=== PATIENT | male | born 1965 | race Caucasian/White ===

== ENCOUNTER 2020-05-18 21:29 | Emergency (ER) | payer OTHER, MEDICAID, SELFPAY ==
[2020-05-18 21:29] VITALS: BP 130/82; PULSE 119; RESP 16; TEMP 36.3; BMI 25.7
--- NOTE | 2020-05-18 21:42 | DI.RAD.S_ITS ---
PROCEDURE: XR CHEST 2V INDICATIONS: shortness of breath TECHNIQUE: 2 views of the chest were acquired. COMPARISON: [facility], , CHEST 1 VIEW, 09/15/2015, 11:42. FINDINGS: Surgical changes and devices: None. Lungs and pleura: Small left-sided pleural effusion. There is cephalization of the pulmonary vasculature and interstitial prominence. Streaky opacities noted in the lung bases bilaterally left greater than right which could represent atelectasis, aspiration or pneumonia. Mediastinum: Mediastinal contours are normal. Heart is mildly enlarged Bones and chest wall: No suspicious bony abnormalities. Soft tissues appear unremarkable. IMPRESSION: 1. Cardiomegaly with CHF and small left-sided pleural effusion. 2. Streaking bibasilar opacities which could represent atelectasis, aspiration or pneumonia. Dictated by: Kita Dia MD, PhD on 05/19/2020 at 8:35 Approved by: Kita Dia MD, PhD on 05/19/2020 at 8:37
[2020-05-18 21:45] VITALS: PULSE 117; RESP 18
[2020-05-18 21:53] LABS: Hematocrit 49.2 % (41-53); Hemoglobin 15.7 g/dL (13.5-17.5); Mean Corpuscular HGB Conc 31.8 % (30-36); Mean Corpuscular Volume 78.4 fL (80-100); Red Blood Cell Count 6.28 X10^6/uL (4.5-5.9); White Blood Cell Count 10.9 X10^3/uL (4.5-11.0)
[2020-05-18 21:59] LABS: Alanine Aminotransferase 20 IU/L (<50); Albumin 4.2 g/dL (3.5-5.0); Albumin Globulin Ratio 1.3 (1.0-2.8); Alkaline Phosphatase 116 U/L (38-126); Aspartate Aminotransferase 28 IU/L (17-59); BUN Creatinine Ratio 19.5 (6-22); Bilirubin Total 1.2 mg/dL (0.2-1.3); Blood Urea Nitrogen 17 mg/dL (9-20); Calcium 9.6 mg/dL (8.4-10.2); Carbon Dioxide 29 mmol/L (22-32); Chloride 98 mmol/L (98-107); Estimated Glomerular Filt Rate > 60.0 mL/min (>60); Globulin 3.2 g/dL (1.7-4.1); Glucose 172 mg/dL (70-100); HEMOLYSIS 25 (0-50); Potassium 4.6 mmol/L (3.4-5.1); Sodium 135 mmol/L (137-145); Total Protein 7.4 g/dL (6.3-8.2)
[2020-05-18 22:00] LABS: Lactate (Lactic Acid) 1.6 mmol/L (0.7-2.1)
[2020-05-18 22:04] VITALS: PULSE 58; O2SAT 100
[2020-05-18 22:05] LABS: Add Manual Diff / Slide Review YES
[2020-05-18 22:08] LABS: Creatine Kinase 59 U/L (55-170)
[2020-05-18 22:16] LABS: Neutrophils Absolute Manual 6976 /uL (3000-5900); RBC Morphology Normal Morphology; Total Cells Counted 100
[2020-05-18 22:22] LABS: NT-proBNP (BNP-Adult 18+) 7540 pg/mL (<125); Troponin I 0.032 ng/mL (0.01-0.034)
--- NOTE | 2020-05-18 22:30 | ED_ITS ---
HPI - General Adult General Chief complaint: Shortness of Breath/Dyspnea Stated complaint: states CHF symptoms Time Seen by Provider: 05/18/20 21:54 Source: patient Mode of arrival: Wheelchair Limitations: no limitations History of Present Illness HPI narrative: 54-year-old male. He states that he has been told that he has had heart failure in the past and has been on Lasix in the past but after further evaluation by his providers he has been taken off of any diuretics. States he has never had a heart attack in the past. Not on anticoagulation here for evaluation of worsening swelling in his lower extremities and shortness of breath/dyspnea on exertion over the past month. He states that he is here in [facility] emergency department today because his family told him that he should come to be evaluated. He does state that over the past several weeks it has become harder and harder for him to get up and walk around even at the grocery store. Does describe a productive cough. No fevers. No chest pain. Related Data Previous Rx's Medication Instructions Recorded furosemide [Lasix] 40 mg PO DAILY #60 tab 05/19/20 Allergies Allergy/AdvReac Type Severity Reaction Status Date / Time Penicillins [PENICILLINS] Allergy Intermediate Unverified 02/01/18 12:34 Review of Systems Constitutional Constitutional: Denies fever(s) and Denies headache(s) ENT Ears, Nose, Mouth, and Throat: Denies headache(s) Cardiovascular Cardiovascular: Denies chest pain, Reports dyspnea and Reports dyspnea on exertion Respiratory Respiratory: Denies chest congestion, Reports dyspnea and Reports dyspnea on exertion Gastrointestinal Gastrointestinal: Denies abdominal pain, Denies nausea and Denies vomiting Musculoskeletal Musculoskeletal: Denies arthralgias and Denies myalgias Integumentary/Breasts Skin/Breast: Denies rash Neurologic Neurologic: Denies behavioral changes and Denies headache(s) Psychiatric Psychiatric: Denies behavioral changes Hematologic/Lymphatic Hematologic/Lymphatic: Denies easy bleeding and Denies easy bruising Allergic/Immunologic Allergic/Immunologic: Denies urticaria Patient History Medical History CHF (congestive heart failure) (Inactive) Social History Smoking Status: Current every day smoker Smoking Status: Current every day smoker tobacco type: cigarettes Substance Use Type: marijuana Exam Initial Vital Signs Initial Vital Signs: Vital Signs Temperature 97.3 F L 05/18/20 21:29 Pulse Rate 119 H 05/18/20 21:29 Respiratory Rate 16 05/18/20 21:29 Blood Pressure 130/82 05/18/20 21:29 Const General: cooperative and comfortable Limitations: mental status not altered HENMT Head: normal to inspection and normocephalic Resp Effort & Inspection: normal respiratory effort Auscultation: clear to auscultation bilaterally Cardio Rate: tachycardic Rhythm: regular rhythm GI Palpation: soft Skin Lesions: no lesions Rashes: no rashes Neuro General: patient alert, patient awake and patient oriented x3 Cognition: normal cognition Speech: speech normal Extrem General: capillary refill normal and edema Psych Appearance: grossly normal and well kempt Scores GCS Lucy coma scale eye opening: Spontaneous Seymour coma scale verbal response: Orientated Seymour coma scale motor response: Obey commands Seymour coma scale total score: 15 Course Orders Ordered: ED Orders 05/19/20 00:40 Troponin I Stat Discontinued Medications Furosemide (Lasix) 60 mg IV NOW ONE Stop: 05/18/20 22:31 Last Admin: 05/18/20 22:41 Dose: 60 mg Documented by: DG Vital Signs Vital signs: Vital Signs - 8 hr 05/18/20 23:30 05/19/20 00:33 05/19/20 01:58 Temperature 98.0 F Pulse Rate 90 109 H 81 Respiratory Rate 24 24 24 Blood Pressure 120/70 130/80 138/72 Pulse Oximetry 99 100 99 Medical Decision Making Lab Data Lab results reviewed: Yes I reviewed the patient's lab results. Result diagrams: 05/18/20 21:45 05/18/20 21:45 Labs: Lab Results 05/18/20 05/18/20 05/18/20 Range/Units 21:45 21:45 21:45 WBC 10.9 (4.5-11.0) X10^3/uL RBC 6.28 H (4.5-5.9) X10^6/uL Hgb 15.7 (13.5-17.5) g/dL Hct 49.2 (41-53) % MCV 78.4 L (80-100) fL MCH 25.0 L (26-34) PG MCHC 31.8 (30-36) % RDW 15.0 H (11.6-14.8) % Plt Count (150-400) X10^3/uL Neut % (Auto) Not Reportable Lymph % (Auto) Not Reportable Tyler % (Auto) Not Reportable Eos % (Auto) Not Reportable Baso % (Auto) Not Reportable Lymph # (Auto) Not Reportable Tyler # (Auto) Not Reportable Baso # (Auto) Not Reportable Total Counted 100 Seg Neutrophils % 64.0 (38-70) % Lymphocytes % (Manual) 21.0 L (25-45) % Monocytes % (Manual) 13.0 H (2-11) % Eosinophils % (Manual) 1.0 L (2-4) % Basophils % (Manual) 1.0 (0-1) % Neutrophils # (Manual) 6976 H (0032-7012) /uL RBC Morphology Normal morphology Sodium 135 L (137-145) mmol/L Potassium 4.6 (3.4-5.1) mmol/L Chloride 98 (98-107) mmol/L Carbon Dioxide 29 (22-32) mmol/L BUN 17 (9-20) mg/dL Creatinine 0.87 (0.66-1.25) mg/dL Estimated GFR > 60.0 (>60) mL/min BUN/Creatinine Ratio 19.5 (6-22) Glucose 172 H (70-100) mg/dL Lactate 1.6 (0.7-2.1) mmol/L Calcium 9.6 (8.4-10.2) mg/dL Total Bilirubin 1.2 (0.2-1.3) mg/dL AST 28 (17-59) IU/L ALT 20 (<50) IU/L Alkaline Phosphatase 116 (38-126) U/L Total Creatine Kinase (55-170) U/L CK-MB (CK-2) CK-MB (CK-2) Rel Index Troponin I (0.01-0.034) ng/mL NT-Pro-B Natriuret Pep (<125) pg/mL Total Protein 7.4 (6.3-8.2) g/dL Albumin 4.2 (3.5-5.0) g/dL Globulin 3.2 (1.7-4.1) g/dL Albumin/Globulin Ratio 1.3 (1.0-2.8) 05/18/20 05/19/20 Range/Units 21:45 00:40 WBC (4.5-11.0) X10^3/uL RBC (4.5-5.9) X10^6/uL Hgb (13.5-17.5) g/dL Hct (41-53) % MCV (80-100) fL MCH (26-34) PG MCHC (30-36) % RDW (11.6-14.8) % Plt Count (150-400) X10^3/uL Neut % (Auto) Lymph % (Auto) Tyler % (Auto) Eos % (Auto) Baso % (Auto) Lymph # (Auto) Tyler # (Auto) Baso # (Auto) Total Counted Seg Neutrophils % (38-70) % Lymphocytes % (Manual) (25-45) % Monocytes % (Manual) (2-11) % Eosinophils % (Manual) (2-4) % Basophils % (Manual) (0-1) % Neutrophils # (Manual) (8994-3729) /uL RBC Morphology Sodium (137-145) mmol/L Potassium (3.4-5.1) mmol/L Chloride (98-107) mmol/L Carbon Dioxide (22-32) mmol/L BUN (9-20) mg/dL Creatinine (0.66-1.25) mg/dL Estimated GFR (>60) mL/min BUN/Creatinine Ratio (6-22) Glucose (70-100) mg/dL Lactate (0.7-2.1) mmol/L Calcium (8.4-10.2) mg/dL Total Bilirubin (0.2-1.3) mg/dL AST (17-59) IU/L ALT (<50) IU/L Alkaline Phosphatase (38-126) U/L Total Creatine Kinase 59 (55-170) U/L CK-MB (CK-2) TNP CK-MB (CK-2) Rel Index TNP Troponin I 0.032 0.032 (0.01-0.034) ng/mL NT-Pro-B Natriuret Pep 7540 H (<125) pg/mL Total Protein (6.3-8.2) g/dL Albumin (3.5-5.0) g/dL Globulin (1.7-4.1) g/dL Albumin/Globulin Ratio (1.0-2.8) Urine Dip Bedside Urine Glucose Negative Bedside Urine Bilirubin - Negative Bedside Urine Ketone - Negative Urine Specific [place] 1.030 Bedside Urine Occult Blood +/- Bedside Urine pH 6.0 Bedside Urine Protein + 30 Bedside Urine Urobilinogen +/- 1mg Bedside Urine Nitrite - Negative Bedside Urine Leukocytes - Negative Esterase Point of care testing: Urine Dip Bedside Urine Glucose Negative Bedside Urine Bilirubin - Negative Bedside Urine Ketone - Negative Urine Specific [place] 1.030 Bedside Urine Occult Blood +/- Bedside Urine pH 6.0 Bedside Urine Protein + 30 Bedside Urine Urobilinogen +/- 1mg Bedside Urine Nitrite - Negative Bedside Urine Leukocytes - Negative Esterase Imaging Data Chest x-ray: Attestation: I personally reviewed and interpreted this imaging study as follows: My Impression: Pulmonary edema ECG Data Attestation: I personally reviewed and interpreted this ECG as follows: Prior ECG tracings: not available for review Interpretation: Sinus rhythm Ventricular rate of 115 Normal axis Normal QRS Normal QTC No ST T wave changes MDM Narrative Medical decision making narrative: Patient does have a history and physical exam consistent with fluid overload most likely related to heart failure. Has an elevated BNP. Has fairly significant swelling in bilateral lower extremities. This does not appear to be new. Has been worsening over the past month. Was given Lasix here in the ER with successful multiple urinations. He does state that he is starting to feel better even during the short time here in the ER. EKG shows no acute changes. His troponin is negative x2. Low suspicion for ACS. I feel that a course of oral Lasix at home prior to admission is not unreasonable in this situation. Patient was given return precautions and follow-up instructions. She expressed understanding and agreement. Discharge Plan Departure Patient Disposition: Home Clinical Impression: Peripheral edema, Heart failure Discharge Date/Time: 05/19/20 01:50 Instructions: DI for Peripheral Edema -- Bilateral Activity Restrictions/Additional Instructions: A prescription for Lasix/furosemide was electronically transmitted to [facility] in [place]. Please start taking this as directed. Had a recommend you contact your primary doctor to discuss follow-up and to discuss the indications for referral to see Cardiology and a echocardiogram. Return to the emergency department for any new or worsening symptoms Prescriptions: New furosemide [Lasix] 40 mg tablet 40 mg PO DAILY Qty: 60 RF: 0 Referrals: Agnieszka Billy [Primary Care Provider] -
[2020-05-18] MEDS: FUROSEMIDE 100 MG/10 ML VIAL 60 MG IV (22:41)
[2020-05-18 23:30] VITALS: BP 120/70; PULSE 90; RESP 24; O2SAT 99
[2020-05-19 00:33] VITALS: BP 130/80; PULSE 109; RESP 24; TEMP 36.7; O2SAT 100
[2020-05-19 01:12] LABS: Troponin I 0.032 ng/mL (0.01-0.034)
[2020-05-19 01:58] VITALS: BP 138/72; PULSE 81; RESP 24; O2SAT 99
== END 2020-05-19 01:50 | disposition home or self-care (01) ==
PROVIDERS: Emergency Provider Emergency Medicine; Family Provider Family Medicine; PCP Family Medicine
DX: R60.9 Edema, unspecified (principal); I50.9 Heart failure, unspecified; R06.02 Shortness of breath
CPT/HCPCS: 36415; 71046; 80053; 81003; 82550; 83605; 83880; 84484; 85025; 93005; 96374; 99284; J1940

== ENCOUNTER 2025-02-26 17:25 | Inpatient (IN) | payer MEDICAID, OTHER, SELFPAY ==
[2025-02-26 17:54] VITALS: BP 169/76; PULSE 112; RESP 16; TEMP 36.8; O2SAT 97; BMI 25.7
--- NOTE | 2025-02-26 19:32 | EKG_ITS ---
[place] [id number] [address] [place] [address] Test Date: 2025-02-27 Pat Name: Cy Buchanan Department: 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
--- NOTE | 2025-02-26 19:32 | DI.RAD.S_ITS ---
PROCEDURE: XR CHEST 1V INDICATIONS: suspected sepsis TECHNIQUE: One view of the chest was acquired. COMPARISON: [facility], CR, XR CHEST 2V, 05/18/2020, 21:34. FINDINGS: Surgical changes and devices: None. Lungs and pleura: Lungs are clear. No pleural effusions or pneumothorax. Mediastinum: Mediastinal contours appear normal. Heart size is normal. Bones and chest wall: No suspicious bony lesions. Overlying soft tissues appear unremarkable. IMPRESSION: No acute cardiopulmonary abnormality is seen. Dictated by: Monico Cerna M.D. on 02/26/2025 at 19:52 Approved by: Monico Cerna M.D. on 02/26/2025 at 19:52
[2025-02-26 20:34] LABS: INR 1.3 (0.9-1.3); Prothrombin Time 14.8 SECONDS (9.4-12.5)
[2025-02-26 20:37] LABS: PTT Partial Thromboplastin Tim 23 SECONDS (25.1-36.5)
[2025-02-26 20:39] LABS: Lactate (Lactic Acid) 1.1 mmol/L (0.7-2.1)
[2025-02-26 20:40] LABS: Alanine Aminotransferase 14 IU/L (<50); Albumin 3.6 g/dL (3.5-5.0); Albumin Globulin Ratio 0.7 (1.0-2.8); Alkaline Phosphatase 101 U/L (38-126); Aspartate Aminotransferase 20 IU/L (17-59); BUN Creatinine Ratio 11.5 (6-22); Bilirubin Total 0.5 mg/dL (0.2-1.3); Blood Urea Nitrogen 9 mg/dL (9-20); Calcium 9.1 mg/dL (8.4-10.2); Carbon Dioxide 33 mmol/L (22-32); Chloride 96 mmol/L (98-107); Estimated Glomerular Filt Rate > 60 mL/min (>60); Globulin 5.3 g/dL (1.7-4.1); Glucose 203 mg/dL (70-99); HEMOLYSIS < 15 (0-50); Lipase 25 U/L (23-300); Potassium 4.6 mmol/L (3.4-5.1); Sodium 132 mmol/L (137-145); Total Protein 8.9 g/dL (6.3-8.2)
[2025-02-26] MEDS: SODIUM CHLORIDE 0.9% 1,000 ML 1000 ML IV (20:42)
[2025-02-26 20:52] LABS: Add Manual Diff / Slide Review NO; Basophils Absolute Auto 100 /uL (0-100); Basophils Percent Auto 0.9 % (0-2); Eosinophils Absolute Auto 100 /uL (0-450); Eosinophils Percent Auto 0.7 % (2-4); Hematocrit 38.3 % (41-53); Hemoglobin 12.8 g/dL (13.5-17.5); Lymphocytes Absolute Auto 1500 /uL (1100-4500); Lymphocytes Percent Auto 10.6 % (25-40); Mean Corpuscular HGB Conc 33.5 % (30-36); Mean Corpuscular Hemoglobin 26.1 PG (26-34); Mean Corpuscular Volume 77.9 fL (80-100); Monocytes Absolute Auto 1100 /uL (0-900); Monocytes Percent Auto 7.5 % (3-14); Neutrophils Absolute Auto 11600 /uL (1500-7000); Neutrophils Percent Auto 80.3 % (50-75); Platelet Count 401 X10^3/uL (150-400); Red Blood Cell Count 4.92 X10^6/uL (4.5-5.9); Red Cell Distribution Width 14.6 % (11.6-14.8); White Blood Cell Count 14.4 X10^3/uL (4.5-11.0)
[2025-02-26 20:56] LABS: Procalcitonin 0.069 ng/mL (<0.5)
--- NOTE | 2025-02-26 21:44 | ED_ITS ---
HPI - Extremity Problem General Chief complaint: Extremity Problem,Nontraumatic Stated complaint: R leg infection Time Seen by Provider: 02/26/25 21:44 Source: patient Mode of arrival: Wheelchair History of Present Illness HPI Narrative: 59-year-old male with a past medical history of diabetes drug abuse on Suboxone presents to the emergency department from home for evaluation of right lower extremity ulcers redness swelling. He states that several months ago he noticed a small ulcer states that he has been ignoring it since then and states that now it is more red with foul-smelling discharge. Patient states that he had something similar happened before and required amputation of his left leg. He denies any other symptoms at this time Related Data Previous Rx's Medication Instructions Recorded furosemide 40 mg tablet (Lasix) 40 mg PO DAILY #60 tabs 05/19/20 Allergies Allergy/AdvReac Type Severity Reaction Status Date / Time Penicillins [PENICILLINS] Allergy Intermediate Verified 02/26/25 17:59 Review of Systems Review of Systems Narrative: General: Denies fever, chills, weight loss HEENT: Denies headache, eye drainage, eye irritation, head trauma, sore throat, voice change Cardiovascular: Denies any chest pain, palpitations, tachycardia Respiratory: Denies any shortness of breath, cough, wheeze, stridor GI/: Denies any abdominal pain, nausea, vomiting, diarrhea, bright red blood per rectum, melanotic stools, urinary frequency, urinary retention, dysuria, hematuria MSK: Denies any joint pain, muscle pains, swelling Skin: Redness and ulceration to the right lower extremity Neuro: Denies any headache, lightheadedness, dizziness, fainting, weakness Psych: Denies SI/HI Patient History Medical History (Updated 02/26/25 @ 22:52 by Onesimo Mcghee DO) CHF (congestive heart failure) Social History Smoking Status: Current every day smoker Smoking Status: Current every day smoker tobacco type: cigarettes Exam Narrative Exam Narrative: General: Cooperative, well-developed, not in acute distress HEENT: Normocephalic, atraumatic, PERRLA, normal sclera, eyelids normal Neck: Active full range of motion, atraumatic Chest: Normal to inspection, negative crepitus, no overlying erythema ecchymosis Respiratory: Normal respiratory effort, not in acute respiratory distress, clear to auscultation bilaterally negative cough, wheeze, tachypnea, rhonchi, rales Cardiology: Regular rate rhythm negative gallop, murmur, rubs GI/: No tenderness to palpation, soft, non rigid, normal to inspection, exam deferred MSK: Full active range of motion in all 4 extremities, atraumatic, no tenderness to palpation of any bony prominences Skin: Erythema and ulcers noted to the right lower extremity, palpable pulses but warmth to touch no crepitus Neuro: Alert awake oriented x3, moves all 4 extremities spontaneously, cranial nerves intact, able to answer all questions appropriately follows commands appropriately Psych: Cooperative, negative suicidal or homicidal ideations Initial Vital Signs Initial Vital Signs: Vital Signs Temperature 98.3 F 02/26/25 17:54 Pulse Rate 112 H 02/26/25 17:54 Respiratory Rate 16 02/26/25 17:54 Blood Pressure 169/76 H 02/26/25 17:54 Pulse Oximetry 97 02/26/25 17:54 Oxygen Delivery Method Room Air 02/26/25 17:54 Course Orders Ordered: ED Orders 02/26/25 19:32 XR chest 1V Stat EKG-12 Lead Stat RT Consult Eval and Treat NOW 02/26/25 20:14 Complete Blood Count AUTO DIFF Stat Comprehensive Metabolic Panel Stat Lactate (Lactic Acid) Stat Lipase Stat PTT Partial Thromboplastin Rustam Stat Procalcitonin Stat Prothrombin Time INR Stat 02/26/25 20:37 Blood Culture Stat 02/26/25 22:17 XR foot RT min 3V Stat 02/26/25 22:56 CRP [C-Reactive Protein Quant] Stat ESR [Erythrocyte Sedimentation Rate] Stat 02/26/25 22:57 A1C [Hemoglobin A1C% w Est Avg Glu] Stat 02/26/25 22:58 MR foot RT wo/w con Stat US arterial duplex LE RT Stat Vancomycin HCl/Dextrose (Vancomycin) 2,000 mg in 400 mls @ 200 mls/hr IV NOW ONE Stop: 02/27/25 00:17 Last Admin: 02/26/25 23:18 Dose: 200 mls/hr Ondansetron HCl (Ondansetron 4 Mg/2 Ml Inj) 4 mg IV NOW PRN PRN Reason: Nausea And Vomiting Ondansetron HCl (Ondansetron 4 Mg Odt) 4 mg PO NOW PRN PRN Reason: Nausea And Vomiting Discontinued Medications Sodium Chloride (Normal Saline 0.9%) 1,000 mls @ 1,000 mls/hr IV BOLUS ONE Stop: 02/26/25 20:30 Last Infusion: 02/26/25 21:59 Dose: Infused Documented By: Admin: 02/26/25 20:42 Dose: 1,000 mls/hr Documented By: Cefepime HCl 2 gm/ Sodium (Chloride) 100 mls @ 200 mls/hr IV NOW ONE Stop: 02/26/25 22:19 Last Admin: 02/26/25 22:29 Dose: 200 mls/hr Documented By: JENNIFER Vital Signs Vital signs: Vital Signs - 8 hr 02/26/25 17:54 02/26/25 22:11 Temperature 98.3 F Pulse Rate 112 H 97 H Respiratory Rate 16 17 Blood Pressure 169/76 H 173/85 H Pulse Oximetry 97 98 Oxygen Delivery Method Room Air MDM - Extremity (Nontraumatic) Lab Data 02/26/25 20:14 02/26/25 20:14 Labs: Lab Results 02/26/25 Range/Units 20:14 WBC 14.4 H (4.5-11.0) X10^3/uL RBC 4.92 (4.5-5.9) X10^6/uL Hgb 12.8 L (13.5-17.5) g/dL Hct 38.3 L (41-53) % MCV 77.9 L (80-100) fL MCH 26.1 (26-34) PG MCHC 33.5 (30-36) % RDW 14.6 (11.6-14.8) % Plt Count 401 H (150-400) X10^3/uL Neut % (Auto) 80.3 H (50-75) % Lymph % (Auto) 10.6 L (25-40) % Porter % (Auto) 7.5 (3-14) % Eos % (Auto) 0.7 L (2-4) % Baso % (Auto) 0.9 (0-2) % Neut # (Auto) 25526 H (3290-9229) /uL Lymph # (Auto) 1500 (5685-9764) /uL Porter # (Auto) 1100 H (0-900) /uL Eos # (Auto) 100 (0-450) /uL Baso # (Auto) 100 (0-100) /uL ESR 43 H (0-15) MM/HR PT 14.8 H (9.4-12.5) SECONDS INR 1.3 (0.9-1.3) APTT 23 L (25.1-36.5) SECONDS Sodium 132 L (137-145) mmol/L Potassium 4.6 (3.4-5.1) mmol/L Chloride 96 L (98-107) mmol/L Carbon Dioxide 33 H (22-32) mmol/L BUN 9 (9-20) mg/dL Creatinine 0.78 (0.66-1.25) mg/dL Estimated GFR > 60 (>60) mL/min BUN/Creatinine Ratio 11.5 (6-22) Glucose 203 H (70-99) mg/dL Hemoglobin A1c 10.7 H (4.0-6.0) % Lactate 1.1 (0.7-2.1) mmol/L Calcium 9.1 (8.4-10.2) mg/dL Total Bilirubin 0.5 (0.2-1.3) mg/dL AST 20 (17-59) IU/L ALT 14 (<50) IU/L Alkaline Phosphatase 101 (38-126) U/L C-Reactive Protein 3.2 H (<1.0) mg/dL Total Protein 8.9 H (6.3-8.2) g/dL Albumin 3.6 (3.5-5.0) g/dL Globulin 5.3 H (1.7-4.1) g/dL Albumin/Globulin Ratio 0.7 L (1.0-2.8) Lipase 25 (23-300) U/L Procalcitonin 0.069 (<0.5) ng/mL Imaging Data Chest x-ray: Radiologist's Impression: [address] [address] XRay Report Signed Patient: Cy Buchanan MR#: [id number] : 1965 Acct:[id number] Age/Sex: 59 / M Date of Service: 02/26/25 Loc: ED Accession Number: [id number] Procedure: XR chest 1V Ordering Provider: Onesimo Mcghee D.O. PROCEDURE: XR CHEST 1V INDICATIONS: suspected sepsis TECHNIQUE: One view of the chest was acquired. COMPARISON: [facility], CR, XR CHEST 2V, 05/18/2020, 21:34. FINDINGS: Surgical changes and devices: None. Lungs and pleura: Lungs are clear. No pleural effusions or pneumothorax. Mediastinum: Mediastinal contours appear normal. Heart size is normal. Bones and chest wall: No suspicious bony lesions. Overlying soft tissues appear unremarkable. IMPRESSION: No acute cardiopulmonary abnormality is seen. Extremity x-ray #1: Radiologist's Impression: [address] [address] XRay Report Signed Patient: Cy Buchanan MR#: [id number] : 1965 Acct:[id number] Age/Sex: 59 / M Date of Service: 02/26/25 Loc: ED Accession Number: [id number] Procedure: XR foot RT min 3V Ordering Provider: Onesimo Mcghee D.O. PROCEDURE: XR FOOT RT MIN 3V INDICATIONS: ulcers, cellulitis TECHNIQUE: 3 views of the foot were acquired. COMPARISON: None. FINDINGS: Diffuse osseous demineralization. No acute fracture or dislocation. Focal osteopenia and permeative appearance of the 1st metatarsal head with adjacent subcutaneous emphysema and extension to the MTP joint. Mild hallux valgus. Surgical clips versus retained foreign body along the plantar aspect of the 3rd metatarsal neck. Mild Achilles calcaneal and plantar calcaneal enthesopathy. IMPRESSION: Osteomyelitis of the 1st metatarsal head/neck with intra-articular extension at the MTP joint. [facility] Narrative Medical decision making narrative: 59-year-old male with a history of noncompliant diabetes on metformin, Suboxone, presenting from home for evaluation of redness and ulceration to his right lower extremity states it has been ongoing for ?months states that something similar happened to his left leg and required amputation states that he knows he waited ?too long but this states that he wants it evaluated now. He denies any numbness weakness tingling to his right lower extremity denies any recent trauma, on exam multiple ulcers noted in the right lower extremity palpable pulses erythematous but no crepitus. Lab work was consistent with a leukocytosis of 14.4, patient with tachycardia with source of infection meeting sepsis criteria, fluids ordered, antibiotics ordered, did obtain x-ray of the right foot that did show osteomyelitis of the 1st metatarsal head/neck with intra-articular extension at the MTP joint 2255: Discussed case with orthopedic surgeon Dr. Acevedo, is recommending MRI with and without of the foot, ultrasound duplex of right lower extremity, ESR CRP and hemoglobin A1c, states to keep patient NPO at midnight and to admit to Medicine. The patient's management plan was discussed Dr. Damon, who agrees to admit the patient to their service and assumes care of this patient at this time. Full admission orders will be placed by the primary team. Discharge Plan Departure Patient Disposition: Admitted As Inpatient Clinical Impression: Diabetic foot ulcer, Osteomyelitis
[2025-02-26 22:11] VITALS: BP 173/85; PULSE 97; RESP 17; O2SAT 98
--- NOTE | 2025-02-26 22:17 | DI.RAD.S_ITS ---
PROCEDURE: XR FOOT RT MIN 3V INDICATIONS: ulcers, cellulitis TECHNIQUE: 3 views of the foot were acquired. COMPARISON: None. FINDINGS: Diffuse osseous demineralization. No acute fracture or dislocation. Focal osteopenia and permeative appearance of the 1st metatarsal head with adjacent subcutaneous emphysema and extension to the MTP joint. Mild hallux valgus. Surgical clips versus retained foreign body along the plantar aspect of the 3rd metatarsal neck. Mild Achilles calcaneal and plantar calcaneal enthesopathy. IMPRESSION: Osteomyelitis of the 1st metatarsal head/neck with intra-articular extension at the MTP joint. Dictated by: Wiley Mahoney M.D. on 02/26/2025 at 22:42 Approved by: Wiley Mahoney M.D. on 02/26/2025 at 22:43
[2025-02-26] MEDS: CEFEPIME 2 GM in SODIUM CHLORIDE 0.9% 100 ML IV (22:29)
[2025-02-26 22:30] VITALS: PULSE 101; O2SAT 98
--- NOTE | 2025-02-26 22:58 | DI.US.S_ITS ---
PROCEDURE: US ARTERIAL DUPLEX LE RT INDICATIONS: osteo TECHNIQUE: Color and pulse Doppler interrogation was performed of the right lower extremity arterial system, with image documentation. COMPARISON: None. FINDINGS: Common femoral artery: 192 cm/sec, with monophasic flow. Deep femoral artery: 268 cm/sec, with monophasic flow. Proximal superficial femoral artery: 250 cm/sec, with monophasic flow. Mid superficial femoral artery: 366 cm/sec, with monophasic flow. Distal superficial femoral artery: 153 cm/sec, with monophasic flow. Popliteal artery: 139 cm/sec, with monophasic flow. Posterior tibial artery: 36 cm/sec, with monophasic flow. Anterior tibial artery/dorsalis pedis: Not identified Ibrahim-scale imaging description: Moderate-severe plaque throughout the entire right lower extremity arterial vasculature IMPRESSION: Multifocal areas of high-grade 50-99% stenosis throughout the right lower extremity arterial vasculature. Dictated by: Wiley Mahoney M.D. on 02/27/2025 at 0:18 Approved by: Wiley Mahoney M.D. on 02/27/2025 at 0:21
[2025-02-26 23:00] VITALS: PULSE 93; O2SAT 92
[2025-02-26] MEDS: VANCOMYCIN 2,000 MG/400 ML PIGGYBACK 200 MG IV (23:18)
[2025-02-26 23:30] VITALS: PULSE 90
[2025-02-26 23:35] LABS: C-Reactive Protein Quant 3.2 mg/dL (<1.0)
[2025-02-26 23:37] LABS: Hemoglobin A1C% w Est Avg Glu 10.7 % (4.0-6.0)
[2025-02-26 23:44] LABS: Erythrocyte Sedimentation Rate 43 MM/HR (0-15)
[2025-02-27] VITALS (10 sets, daily range): BP systolic 137–178; BP diastolic 64–90; PULSE 60–109; RESP 12–20; TEMP 35.6–36.3; O2SAT 91–97; BMI 25.7
--- NOTE | 2025-02-27 02:06 | PC.NURSE ---
Late entry: R lower extremity reddened and swollen below knee. R foot with open areas weeping purulent discharge. Areas of yellow and black eschar to sole of foot. Pt denies pain/sensation to R foot.
--- NOTE | 2025-02-27 03:13 | PC.WOUNDPHOT ---
R MIDDLE FINGER R HAND FINGERNAILS L PALM OF HAND L TOP OF HAND R RING FINGER L ANTECUBITAL L INNER WRIST R BUTTOX GLUTEAL CLEFT LEFT BUTTOCKS SCROTUM & PHALLUS SOLE OF RIGHT FOOT SOLE OF RIGHT FOOT TOP OF RIGHT FOOT RIGHT FOOT MEDIAL RLE MEDIAL RLE DORSAL L ELBOW L PROXIMAL FOREARM R ELBOW VENTRAL L STUMP BKA MEDIAL L STUMP BKA DORSAL L STUMP BKA PROXIMAL L STUMP BKA VENTRAL RLE R HEEL R BALL OF FOOT VENTRAL L STUMP BKA
--- NOTE | 2025-02-27 03:18 | DI.MRI.S_ITS ---
PROCEDURE: MR FOOT RT WO/W CON INDICATIONS: diabetic TECHNIQUE: Noncontrast coronal T1 spin echo and STIR, sagittal T1 spin echo with fat saturation and STIR, axial T1 spin echo and T2 fast spin echo with fat saturation. After the administration of contrast, axial/sagittal/coronal T1 spin echo with fat saturation through the right foot. COMPARISON: [facility], CR, XR FOOT RT MIN 3V, 02/26/2025, 22:14. FINDINGS: Image quality: Diagnostic. Bones: Susceptibility artifacts are noted at plantar aspect of 3rd toe at the level of 3rd metatarsal shaft. Extensive marrow edema throughout 1st metatarsal shaft and 1st proximal phalanx is seen with bony erosive changes involving 1st metatarsal head. Erosive changes also noted involving medial and lateral sesamoid bones of 1st metatarsal head with marrow edema. No other area of marrow edema or bony erosion. After IV contrast infusion, enhancement in the above-mentioned area of edema is seen. No fracture or dislocation. Soft tissues: Full-thickness ulceration involving plantar and medial aspect of 1st MTP joint is seen with subcutaneous emphysema and extensive soft tissue swelling and edema extending to dorsal aspect of midfoot and forefoot. No discrete drainable abscess collection is seen. Visualized plantar foot muscles show no signal abnormality or abnormal enhancement. Extensor and flexor tendons are grossly intact. IMPRESSION: 1. Full-thickness ulceration involving plantar aspect of 1st MTP joint with extensive midfoot and forefoot soft tissue cellulitis. No discrete drainable abscess collection. 2. Finding is consistent with osteomyelitis involving 1st metatarsal bone and 1st proximal phalanx as well as medial and lateral sesamoids of 1st metatarsal head with extensive marrow edema and bony erosive changes. Heterogeneous contrast enhancement in the area of edema is seen. 3. No other area of abnormal marrow signal. Susceptibility artifacts are noted in plantar aspect of 3rd toe. No other area of abnormal intraosseous enhancement. 4. No gross full-thickness extensor or flexor tendon rupture. No gross plantar foot muscle signal abnormalities. No enhancing soft tissue mass. Dictated by: Michael Baldwin M.D. on 02/27/2025 at 11:32 Approved by: Michael Baldwin M.D. on 02/27/2025 at 11:37
--- NOTE | 2025-02-27 03:19 | P.HP_ITS ---
History of Present Illness History of Present Illness Date Patient Seen: 02/27/25 Time Patient Seen: 01:30 Chief complaint: R leg infection Narrative: 59 y/o with PMH of type 2 NIDDM, non-compliance with metformin, prior Lt BKA, smoking, presented with infected Rt foot diabetic ulcer and likely OM of 1st Rt metatarsal, foot cellulitis and sepsis. In no pain due to neuropathy. Only medication that currently takes is Suboxane for the history of opiate use. [facility] Medical History (Updated 02/27/25 @ 03:31 by Pankaj Damon MD) Smoking addiction Diabetes CHF (congestive heart failure) Social History household members: other Smoking Status: Current every day smoker alcohol intake: never Meds Home Medications and Allergies Home Medications Medication Instructions Recorded Confirmed Type furosemide 40 mg tablet (Lasix) 40 mg PO DAILY #60 tabs 05/19/20 Rx Allergies Allergy/AdvReac Type Severity Reaction Status Date / Time Penicillins [PENICILLINS] Allergy Intermediate Verified 02/26/25 17:59 Review of Systems Review of Systems Narrative: General - w/o fever or chills Neuro - Rt foot numbness, chronic CVS - w/o chest pain RS - w/o cough, everyday smoker Skin - not sure when ulcer appeared, likely more then a month ago Exam Vital Signs (past 8 hours): - 02/26/25 22:11 02/26/25 22:30 02/26/25 23:00 Temperature Pulse Rate 97 H 101 H 93 H Respiratory Rate 17 Blood Pressure 173/85 H Pulse Oximetry 98 98 92 Oxygen Flow Rate 02/26/25 23:30 02/27/25 00:00 02/27/25 00:30 Temperature Pulse Rate 90 92 H 86 Respiratory Rate Blood Pressure Pulse Oximetry 94 91 Oxygen Flow Rate 02/27/25 00:50 02/27/25 00:50 02/27/25 01:00 Temperature Pulse Rate 92 H 83 Respiratory Rate Blood Pressure 137/64 Pulse Oximetry 93 92 Oxygen Flow Rate 02/27/25 01:30 02/27/25 01:50 Temperature 97.3 F L Pulse Rate 109 H Respiratory Rate 20 Blood Pressure 178/90 H Pulse Oximetry 95 95 Oxygen Flow Rate 0 Oxygen Delivery Method Room Air Oxygen Flow Rate 0 Narrative Exam Narrative: General - in no distress Skin - Rt 1 st metatarsal diabetic ulcer, Rt foot cellulitis CVS - tachycardic, regular RS - tachypneic, not wheezy GI - not distyended Neuro - Rt foot numbness Ext - s/p Lt BKA, has prosthesis Objective Labs 02/26/25 20:14 02/26/25 20:14 Labs: Laboratory Results - last 24 hr 02/26/25 20:14 WBC 14.4 H RBC 4.92 Hgb 12.8 L Hct 38.3 L MCV 77.9 L MCH 26.1 MCHC 33.5 RDW 14.6 Plt Count 401 H Neut % (Auto) 80.3 H Lymph % (Auto) 10.6 L [place] % (Auto) 7.5 Eos % (Auto) 0.7 L Baso % (Auto) 0.9 Neut # (Auto) 06615 H Lymph # (Auto) 1500 [place] # (Auto) 1100 H Eos # (Auto) 100 Baso # (Auto) 100 ESR 43 H PT 14.8 H INR 1.3 APTT 23 L Sodium 132 L Potassium 4.6 Chloride 96 L Carbon Dioxide 33 H BUN 9 Creatinine 0.78 Estimated GFR > 60 BUN/Creatinine Ratio 11.5 Glucose 203 H Hemoglobin A1c 10.7 H Lactate 1.1 Calcium 9.1 Total Bilirubin 0.5 AST 20 ALT 14 Alkaline Phosphatase 101 C-Reactive Protein 3.2 H Total Protein 8.9 H Albumin 3.6 Globulin 5.3 H Albumin/Globulin Ratio 0.7 L Lipase 25 Procalcitonin 0.069 Assessment & Plan Assessment and plan (1) Sepsis: Status: Acute (2) Cellulitis of foot: Status: Acute (3) Diabetic foot ulcer: Status: Acute (4) Osteomyelitis: Status: Acute (5) Diabetes: Status: Acute (6) Smoking addiction: Status: Acute Assessment & Plan narrative: Infected Rt 1st metatarsal diabetic ulcer / underlying OM / Sepsis - Cefepime, Vancomycin, IVFs - telemetry monitoring - NPO for debridement - pending arterial duplex of Rt leg and MRI w / wo of Rt foot NIDDM, type 2 / non-compliance with metformin - SS, CBG q 6 h while NPO - A1C pending Smoker - nicotine replacement, prn albuterol Hx of opiate use - on suboxane at home Patient consented to a real time, audio-video telemedicine visit with electronic stethoscope and RN assisting during the exam. Patient located at [place], [place]. Provider located in [place]. Time-Based Coding :: [TOTAL MINUTES] spent with patient and on the chart (including review of chart, obtaining history, exam, reviewing outside data, placing orders, documenting exam and treatment plan, and counseling patient) on [DATE]. Quality VTE Deep Vein Thrombosis/Pulmonary Embolism Present on Admission: No
[2025-02-27] MEDS: NICOTINE 21 MG PATCH TOP (04:13)
[2025-02-27] MEDS: INSULIN LISPRO 100 UNIT/ML 3ML VIAL SUBCUT ×4 (04:13→21:11)
[2025-02-27] MEDS: DEXTROSE 5%-0.45% NS 1,000 ML 100 ML IV (04:14)
[2025-02-27 04:58] LABS: Add Manual Diff / Slide Review NO; Basophils Absolute Auto 0 /uL (0-100); Basophils Percent Auto 0.5 % (0-2); Eosinophils Absolute Auto 100 /uL (0-450); Eosinophils Percent Auto 1.4 % (2-4); Hematocrit 35.6 % (41-53); Hemoglobin 11.9 g/dL (13.5-17.5); Lymphocytes Absolute Auto 1300 /uL (1100-4500); Lymphocytes Percent Auto 13.6 % (25-40); Mean Corpuscular HGB Conc 33.4 % (30-36); Mean Corpuscular Hemoglobin 26.2 PG (26-34); Mean Corpuscular Volume 78.5 fL (80-100); Monocytes Absolute Auto 1100 /uL (0-900); Monocytes Percent Auto 11.4 % (3-14); Neutrophils Absolute Auto 7000 /uL (1500-7000); Neutrophils Percent Auto 73.1 % (50-75); Platelet Count 338 X10^3/uL (150-400); Red Blood Cell Count 4.53 X10^6/uL (4.5-5.9); Red Cell Distribution Width 14.4 % (11.6-14.8); White Blood Cell Count 9.6 X10^3/uL (4.5-11.0)
[2025-02-27 04:59] LABS: BUN Creatinine Ratio 14.5 (6-22); Blood Urea Nitrogen 9 mg/dL (9-20); Calcium 8.4 mg/dL (8.4-10.2); Carbon Dioxide 30 mmol/L (22-32); Chloride 101 mmol/L (98-107); Estimated Glomerular Filt Rate > 60 mL/min (>60); Glucose 198 mg/dL (70-99); HEMOLYSIS < 15 (0-50); Sodium 135 mmol/L (137-145)
[2025-02-27] MEDS: VANCOMYCIN 1,250 MG/250 ML PIGGYBACK 250 MG IV ×3 (07:45→23:10)
--- NOTE | 2025-02-27 08:32 | PM.CN ---
History of Present Illness Consult details Date Patient Seen: 02/27/25 Time Patient Seen: 06:30 Chief complaint: R leg infection Reason for consult: Osteomyelitis? Requesting provider: Onesimo Mcghee Narrative: 59-year-old male presented to the ER for right foot wounds. Complex medical history of diabetes and vasculopathy history of left BKA for gangrene at [facility] in September of 2023. He states this was done by a vascular surgeon at in his foot was black before the amputation. Denies any history of revascularization or stenting. He uses a prosthetic to ambulate with. States he was diagnosed with diabetes and took his metformin consistently for 6 months after his amputation but has not taken it since. He states his sugars have improved. He is not currently on any diabetic medication. He is a current smoker. He does not currently have a primary care physician. He has noted worsening appearance of his right foot with ulcerations and blisters but states it has been ?going on for a while?. What brought him into the ER today is worsening appearance and he saw maggots on his foot when he went to change his shoe. He has dense neuropathy no feeling in the extremity. He was found to have an elevated white count of 14 in the ER. And multiple ulcerations over the foot. On my examination today he has cellulitis to approximately 10 cm below the knee joint. He has atrophic skin as well as lichenified plaques over the anterior ibrahim and dorsum of the foot. He does not have palpable dorsalis pedis or posterior tibialis pulses on my examination. He has multiple ulcers on his foot including around the 1st metatarsophalangeal joint and multiple along the plantar foot including the heel. His calf is soft his thigh is soft. Knee appears benign. Dense neuropathy. Denies specific fevers or chills but states the leg has been getting worse. Meds Home Medications and Allergies Home Medications Medication Instructions Recorded Confirmed Type furosemide 40 mg tablet (Lasix) 40 mg PO DAILY #60 tabs 05/19/20 Rx Allergies Allergy/AdvReac Type Severity Reaction Status Date / Time Penicillins [PENICILLINS] Allergy Intermediate Verified 02/26/25 17:59 Review of Systems Review of Systems Narrative: Dense neuropathy lower extremity History of left BKA No fevers or chills Exam Vital Signs (past 8 hours): - 02/27/25 00:50 02/27/25 00:50 02/27/25 01:00 Temperature Pulse Rate 92 H 83 Respiratory Rate Blood Pressure 137/64 Pulse Oximetry 93 92 Oxygen Flow Rate 02/27/25 01:30 02/27/25 01:50 02/27/25 04:00 Temperature 97.3 F L 97.3 F L Pulse Rate 109 H 93 H Respiratory Rate 20 12 Blood Pressure 178/90 H 163/82 H Pulse Oximetry 95 95 96 Oxygen Flow Rate 0 0 Oxygen Delivery Method Room Air Oxygen Flow Rate 0 Narrative Exam Narrative: Alert and oriented male lying in hospital bed no acute distress. HEENT exam normocephalic atraumatic Heart regular rate and rhythm Lungs clear to auscultation unlabored on room air There is a left below-knee amputation Right lower extremity with cellulitis to approximately 10 cm below knee joint. Thickened contracted skin at the level of the lower leg ankle and foot consistent with vasculopathy. No palpable dorsalis pedis or posterior tibialis pulses. Dense stocking-glove neuropathy. Calf is soft thigh is soft. No crepitus in the skin. There is thickened lichen I raised plaques over the distal anterior ibrahim and dorsum of the foot and ankle. There were multiple ulcerations and hemorrhagic blisters over the foot including the heel plantar foot and full-thickness ulceration at the 1st MTP joint with malodor. No gross fluctuance but there is necrosis of tissue noted. Objective Imaging Foot x-ray: My impression: Right foot x-ray three views nonweightbearing AP oblique and lateral demonstrate parent full-thickness ulceration level of 1st metatarsal head medially with hallux valgus degenerative changes and erosion into the 1st metatarsal head consistent with osteomyelitis. Overall very washed out osteopenic appearance of the bone diffusely in the foot small foreign body near the 3rd metatarsal neck metallic Radiologist's impression: Osteomyelitis 1st metatarsal head and neck with intra-articular extension of the MTP joint Arterial Doppler lower extremity: Radiologist's impression: Arterial duplex right lower extremity multifocal areas of high-grade 50-99% stenosis throughout the right lower extremity arterial vasculature. Common femoral artery 192 cm/sec monophasic. Deep femoral artery to 68 with monophasic flow. Proximal superficial femoral artery to 50 with mono phasic flow mid superficial femoral artery 366 with monophasic flow distal superficial femoral artery 153 with monophasic flow popliteal artery 139 with monophasic flow posterior tibial artery 36 with monophasic flow anterior tibial artery dorsalis pedis not identified. Grayscale imaging moderate severe plaque throughout entire lower extremity arterial vasculature Labs 02/27/25 04:32 02/27/25 04:32 Labs: Laboratory Results - last 24 hr 02/26/25 02/27/25 20:14 04:32 WBC 14.4 H 9.6 RBC 4.92 4.53 Hgb 12.8 L 11.9 L Hct 38.3 L 35.6 L MCV 77.9 L 78.5 L MCH 26.1 26.2 MCHC 33.5 33.4 RDW 14.6 14.4 Plt Count 401 H 338 Neut % (Auto) 80.3 H 73.1 Lymph % (Auto) 10.6 L 13.6 L [place] % (Auto) 7.5 11.4 Eos % (Auto) 0.7 L 1.4 L Baso % (Auto) 0.9 0.5 Neut # (Auto) 07905 H 7000 Lymph # (Auto) 1500 1300 [place] # (Auto) 1100 H 1100 H Eos # (Auto) 100 100 Baso # (Auto) 100 0 ESR 43 H PT 14.8 H INR 1.3 APTT 23 L Sodium 132 L 135 L Potassium 4.6 4.0 Chloride 96 L 101 Carbon Dioxide 33 H 30 BUN 9 9 Creatinine 0.78 0.62 L Estimated GFR > 60 > 60 BUN/Creatinine Ratio 11.5 14.5 Glucose 203 H 198 H Hemoglobin A1c 10.7 H Lactate 1.1 Calcium 9.1 8.4 Total Bilirubin 0.5 AST 20 ALT 14 Alkaline Phosphatase 101 C-Reactive Protein 3.2 H Total Protein 8.9 H Albumin 3.6 Globulin 5.3 H Albumin/Globulin Ratio 0.7 L Lipase 25 Procalcitonin 0.069 [facility] Medical History Smoking addiction Diabetes CHF (congestive heart failure) Social History details: Ambulates with a prosthetic for a below-knee amputation on the left household members: other Tobacco & Substance Use Smoking Status: Current every day smoker alcohol intake: never Assessment & Plan Assessment and plan (1) Peripheral vascular disease of lower extremity with ulceration: Status: Acute (2) Diabetic foot ulcer: Qualifiers: Diabetic foot ulcer location: unspecified part of foot Diabetes mellitus type: type 2 Laterality: right Non-pressure ulcer stage: with necrosis of bone Qualified Code(s): E11.621 - Type 2 diabetes mellitus with foot ulcer; L97.514 - Non-pressure chronic ulcer of other part of right foot with necrosis of bone Status: Acute (3) Osteomyelitis: Qualifiers: Osteomyelitis type: chronic, with draining sinus Osteomyelitis location: foot Laterality: right Qualified Code(s): M86.471 - Chronic osteomyelitis with draining sinus, right ankle and foot Status: Acute Assessment & Plan narrative: The patient is a 59-year-old male with uncontrolled diabetes hemoglobin A1c now 10.6 that has not been on in his medications with severe vascular disease that is already resulted in 1 below-knee amputation. He has severe lower extremity vascular disease decreased blood flow nonpalpable pulses at the level of the ankle and multiple areas of high-grade stenosis on arterial duplex. He has ulcerations in multiple areas of his foot most significant at the 1st metatarsophalangeal joint with osteomyelitis but also extending to the heel pad. I believe this patient will require a below-knee amputation on the right side as well however with his severe vascular disease and the contracted skin appearance I feel the overall disease is more likely sequelae of vascular disease complicated by uncontrolled diabetes and neuropathy. I would recommend if possible evaluation by vascular surgery to see if there was any possibility of more proximal stenting to help maximize healing potential of a stump . It does take significant more energy to ambulate with bilateral amputations in his concern the patient will significantly lose his mobility status with progression to becoming a double amputee. If there was no vascular surface available for the patient I would be able to perform the below-knee amputation however I still recommend vascular evaluation for healing potential and feel overall the patient would be best served by a vascular evaluation before below-knee amputation and if so vascular service could perform both potential blood flow optimization as well as amputation. At this time the patient's white count has improved with hydration and antibiotics as down to 9 this morning he is not currently febrile. I recommend maintaining IV antibiotics local wound treatments and consideration for transfer for vascular evaluation. 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 He was at very high risk for below-knee amputation and a further concerns about stump healing potential given his vascular studies and skin appearance on my examination today. High-level medical decision-making. Reviewed arterial duplex and independent interpretation of x-rays. Patient indicated for hospital admission and recommend vascular consultation, patient at high risk for lower extremity amputation. Time-Based Coding :: [TOTAL MINUTES] spent with patient and on the chart (including review of chart, obtaining history, exam, reviewing outside data, placing orders, documenting exam and treatment plan, and counseling patient) on [DATE].
--- NOTE | 2025-02-27 10:01 | DI.CT.S_ITS ---
PROCEDURE: CT ANGIO LE RT INDICATIONS: high grade stenosis on doppler, osteo, further vascular eval TECHNIQUE: After the administration of intravenous contrast, 2.5 mm sections acquired from T12 to the feet, with optional delayed image acquisition from the knees to the feet. 3-dimensional maximum intensity projection (MIP) coronal and sagittal reformats, and/or 3-dimensional volume rendering reformatting was then performed. For radiation dose reduction, the following was used: automated exposure control. COMPARISON: [facility], MR, MR FOOT RT WO/W CON, 02/27/2025, 10:25. [facility], US, US ARTERIAL DUPLEX LE RT, 02/26/2025, 23:42. [facility], CR, XR FOOT RT MIN 3V, 02/26/2025, 22:14. FINDINGS: Image Quality: Diagnostic. Peritoneum: No pneumoperitoneum or ascites. Bones: Diffuse osseous demineralization. Partial ankylosis of the sacroiliac joints with bridging osteophytes. Status post left below-knee amputation. Osteomyelitis of the right foot 1st ray with subcutaneous emphysema (6/359-403). Multilevel lumbar osteoarthrosis with moderate-severe facet arthropathy. Lower Chest: Small hiatal hernia. Liver: Normal in size and contour. Gallbladder: Layering cholelithiasis. Biliary tree: No intrahepatic or extrahepatic biliary ductal dilatation. Pancreas: Within normal limits. Spleen: Normal in size and contour. Kidneys: No hydronephrosis or obstructive urolithiasis. Adrenals: No adrenal nodularity. Bladder: Normal in size and wall thickness. : No acute abnormality. Stomach: Normal in size and contour. Bowel: Normal in diameter without any bowel obstruction. Normal retrocecal appendix (4/103). Moderate-large stool burden. Lymph Nodes: No retroperitoneal or mesenteric lymphadenopathy. Bilateral inguinal lymphadenopathy, with the largest node measuring 1.8 cm at the right inguinal region (4/208). Vascular: No abdominal aortic aneurysm. The celiac, superior mesenteric, inferior mesenteric, and bilateral renal arteries are patent. Mild-moderate calcified and noncalcified aortoiliac atherosclerosis. Complete occlusion of the bilateral internal iliac arteries with severe atherosclerosis at the ostia (4/112). Multifocal high-grade calcified stenoses of the left superficial femoral and profunda femoris arteries with poor opacification throughout their visualized course. Multifocal high-grade calcified stenosis of the right superficial femoral and profunda femoris arteries with patent but poor opacification throughout their course that extends into the triple-vessel runoff. Soft Tissues: Soft tissue edema in the right lower extremity that progressively increases from the posterior thigh to the level of the foot, greatest at the site of 1st ray osteomyelitis. Punctate radiopaque foreign object at the plantar aspect of the 3rd metatarsal neck (4/651). IMPRESSION: 1. Severe high-grade stenosis of the bilateral superficial femoral and profunda femoris arteries, with patent but poor opacification of the right lower extremity triple-vessel runoff. The CTA is concordant with the right lower extremity arterial Doppler ultrasound findings. 2. 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 3. Right foot 1st ray osteomyelitis with likely superimposed cellulitis. 4. Cholelithiasis. Dictated by: Wiley Mahoney M.D. on 02/27/2025 at 21:29 Approved by: Wiley Mahoney M.D. on 02/27/2025 at 21:44
--- NOTE | 2025-02-27 10:11 | OT.IPNOTE ---
Discharge OT eval as pt looking to transfer to higher care.
[2025-02-27] MEDS: CEFEPIME 2 GM in SODIUM CHLORIDE 0.9% 100 ML IV ×2 (12:05→22:25)
--- NOTE | 2025-02-27 12:14 | PT-IP ANOTE ---
PT eval order received and EMR reviewed. Talked with hospitalist and told PT to not see pt and to d/c PT eval order. pt plans to d/c to higher level of care.
--- NOTE | 2025-02-27 14:06 | CM.DANOTE ---
Patient is a 59 yo male who was admitted INPT Status on 02/26/25 for R Leg Infection. Pt has COORDINATED CARE for insurance and his PCP is Dr. Yue Zimmerman at [facility]. EMR was reviewed. Per MD, pt with hx of Left BKA in 2022 after osteo/diabetic complications and admits now with poorly controlled DM, severe neuropathy, multiple diabetic foot ulcers, sepsis, cellultis and osteo. Per Ortho Consult, recommendation of hospital transfer for Vascular Surgeon to likely complete new Right BKA. Further imaging done today and MD anticipates attempt at hospital transfer. SW met bedside with pt and explained role and pt looks older than stated age but confirms he lives in a mobile home in [place] and has a good friend as a roommate for the past few years. Pt states his Dtr Gretel [phone] also lives in [place] and is supportive and is his informal POA as pt has not completed POA pwk. Pt states he discharged to home after his first BKA on his left leg and no hx of SNF and states his friend/roommate was a great support and helper, he was able to physically assist. Pt felt his healing from first BKA went well other than taking a lengthy amount of time to get his prosthetic. Pt states he is independent with ADLs and drives his own vehicle but friend can provide transport at d/c. Pt states his PCP is Dr. Yue Zimmerman at [facility] but states he has not seen her recently. SW called [facility] and confirmed he is still established with Dr. Zimmerman. LUCINDA Del Rosario kindly faxed clinicals to PCP office to review. Pt states he is on Social Security Disability and does not have any concerns about basic needs and blames himself for not getting medical care when he first noticed his foot ulcers. Plan: SW to follow closely for possible hospital transfer for higher level of care needs with Vascular Surgeon for high risk of Right BKA. POPEYE Nesbitt Discharge Planning/Care Management CM Discharge Assessment Start: 02/27/25 00:22 Freq: Status: Active Protocol: Document 02/27/25 13:59 BF (Rec: 02/27/25 14:06 BF [id number]) Discharge Planning Assessment Assigned Track Greaser POPEYE Alatorre DPOA/Assigned Designee Name informally Dtr Gretel Contact Information [phone] Advance Directives? No Advance Directives on File No History Provided By Patient,Medical Record Has Patient been admitted in last 30 No days? Prior Living Arrangements Mobile home Household Members other Comment Has friend as roommate Type of transporation used prior to Drives own vehicle admit Independent with ADL's Yes Is patient alert and oriented? Yes Needs Assistance With Managing Medications,Home Chores / Shopping Caregiver for Another No Comment Poorly controlled diabetes, not very med compliant DME Already Rented / Owned Other Comment Left BKA with prosthetic Comment Unknown, currently recommendation of likely right BKA now and possible hospital transfer for Vascular Surgeon Barriers to Discharge Yes Discharge Plan Transfer to Higher Level of Care Additional Comment Pending hospital transfer and BKA Whiteboard Updated in Patient Room with Yes name and ext. # of Track Greaser Review Status In Process Please Provide Date Initial DC 02/27/25 Assessment Was Performed Next Review Type Continued Stay Review
--- NOTE | 2025-02-27 14:24 | DIET.CONS ---
Dietary Consultation Note Admission Date: 02/26/2025 23:57 Assessment: 59 y M admitted for osteomyelitis and diabetic foot ulcer. Dietitian consulted for non-compliant DM and wounds. Hx of left BKA in 2022. Met with pt at bedside who reports after his last BKA he was good at taking his medication, following carb consistent diet and limiting sweets, and checking BG with meter, which at that time FBG were in the 70s. Hasn't been taking meds lately, doesn't have test strips for meter. Reports he will get back on track now. Gets food from meals [employer] wheels and has 2 meals per day, 1 from [employer] and one frozen option from [employer]. Tries to do meals like chicken, broccoli and rice. Pt also notes he's been having constipation. Ht: 187.96 cm Wt: 79 kg BMI: 22.4 Last BM: 02/20/25 (02/27/25 02:07) MNA: 8 T[place]anda Score: 17 Diet: 02/27/25 Lunch Carbohydrate Consistent Diet Diet Modifications: Carbohydrate level: Large (4 CHO) Reflex DM orders: No Food Texture: Level 7 - Regular Liquid Consistency: Level 0 - Thin Labs: RBC 4.53 X10^6/uL (4.5-5.9) 02/27/25 04:32 Hgb 11.9 g/dL (13.5-17.5) L 02/27/25 04:32 Hct 35.6 % (41-53) L 02/27/25 04:32 Creatinine 0.62 mg/dL (0.66-1.25) L 02/27/25 04:32 Hemoglobin A1c 10.7 % (4.0-6.0) H 02/26/25 20:14 Lactate 1.1 mmol/L (0.7-2.1) 02/26/25 20:14 Nutrition Diagnosis: Altered nutrition related lab values (A1c) r/t endocrine dysfunction and not taking medication aeb 10.7% A1c on 02/26/25 Interventions: -Discussed CHO at meals, reading label of frozen meals for total CHO, spacing meals out, BG ranges to aim for -Discussed pairing foods with protein, fiber -Discussed fiber and hydration for constipation -Offered information on '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
--- NOTE | 2025-02-27 15:13 | PM.HP.1 ---
History of Present Illness History of Present Illness Date Patient Seen: 02/27/25 Time Patient Seen: 09:20 Chief complaint: R leg infection Narrative: This is a 59 M with PMH of DM2, HTN, CHFpEF (EF 42% 09/2023), PAD, prior L BKA (09/2023), opiate use disorder on suboxone who presents for worsening ulceration of his R lower leg for the last severeal months. It started much smaller but has been increasing in size over two months and has had discharge over the last few days. He denies fever, chills. He has neuropathy and minimal pain but is on suboxone of OUD. MRI today shows osteomyelitis of the L 1st toe. Orthopedic surgery consulted and recommended vascular evaluation prior to possible BKA. CTA was performed, currently awaiting read prior to possible transfer. He is on cefepime and vancomycin. Arterial duplex showed arterial stenosis. [facility] Medical History Smoking addiction Diabetes CHF (congestive heart failure) Social History details: Ambulates with a prosthetic for a below-knee amputation on the left household members: other Smoking Status: Current every day smoker alcohol intake: never Meds Home Medications and Allergies Home Medications Medication Instructions Recorded Confirmed Type buprenorphine 8 mg-naloxone 2 mg 8 mg sublingual BID 02/27/25 02/27/25 History sublingual film (Suboxone) Allergies Allergy/AdvReac Type Severity Reaction Status Date / Time Penicillins [PENICILLINS] AdvReac Mild SKIN TEST Verified 02/27/25 12:26 NEGATIVE Review of Systems Review of Systems Narrative: All other systems reviewed with the patient and are negative unless otherwise stated. Exam Vital Signs (past 8 hours): - 02/27/25 12:00 Temperature 97.1 F L Pulse Rate 90 Respiratory Rate 20 Blood Pressure 159/70 H Pulse Oximetry 92 Oxygen Flow Rate 0 Oxygen Delivery Method Room Air Oxygen Flow Rate 0 Narrative Exam Narrative: General - in no distress Skin - Rt 1 st metatarsal diabetic ulcer, Rt foot cellulitis CVS - tachycardic, regular RS - tachypneic, not wheezy GI - not distyended Neuro - Rt foot numbness Ext - s/p Lt BKA, Objective Labs 02/27/25 04:32 02/27/25 04:32 Labs: Laboratory Results - last 24 hr 02/26/25 02/27/25 20:14 04:32 WBC 14.4 H 9.6 RBC 4.92 4.53 Hgb 12.8 L 11.9 L Hct 38.3 L 35.6 L MCV 77.9 L 78.5 L MCH 26.1 26.2 MCHC 33.5 33.4 RDW 14.6 14.4 Plt Count 401 H 338 Neut % (Auto) 80.3 H 73.1 Lymph % (Auto) 10.6 L 13.6 L [place] % (Auto) 7.5 11.4 Eos % (Auto) 0.7 L 1.4 L Baso % (Auto) 0.9 0.5 Neut # (Auto) 09508 H 7000 Lymph # (Auto) 1500 1300 [place] # (Auto) 1100 H 1100 H Eos # (Auto) 100 100 Baso # (Auto) 100 0 ESR 43 H PT 14.8 H INR 1.3 APTT 23 L Sodium 132 L 135 L Potassium 4.6 4.0 Chloride 96 L 101 Carbon Dioxide 33 H 30 BUN 9 9 Creatinine 0.78 0.62 L Estimated GFR > 60 > 60 BUN/Creatinine Ratio 11.5 14.5 Glucose 203 H 198 H Hemoglobin A1c 10.7 H Lactate 1.1 Calcium 9.1 8.4 Total Bilirubin 0.5 AST 20 ALT 14 Alkaline Phosphatase 101 C-Reactive Protein 3.2 H Total Protein 8.9 H Albumin 3.6 Globulin 5.3 H Albumin/Globulin Ratio 0.7 L Lipase 25 Procalcitonin 0.069 Assessment & Plan Assessment & Plan narrative: Infected Rt 1st metatarsal diabetic ulcer with osteomyelitis / Sepsis ruled out - Cefepime, Vancomycin, can stop IV fluids today. - telemetry monitoring - NPO for debridement - MRI shows 1st toe osteo. CTA pending but likely significant vascular disease. Awaiting CTA read prior to discussion with vascular surgery to see if interventions can be performed - appreciate orthopedic consultation, following for vascular recommendations prior to determination of possible BKA. NIDDM, type 2 / non-compliance with metformin - prior admission glucose was controlled on 20 U lantus daily +5 U TID AC, will hold home oral agents at this time. Start with 10 U at bedtime and sliding scale insulin for now. - A1C 10.7 % Smoker - nicotine replacement, prn albuterol Hx of opiate use - on suboxane at home, will continue today. Code: Full, surrogate is patient's daughter DVT: L BKA, holding chemical ppx prior to surgery, SCD of R leg. I have utilized all available immediate resources to obtain, update, or review the patient's current medications. Dispo: patient admitted under inpatient status. Unclear if will be able to discharge home or possible SNF, will have PT/OT evaluations if undergoes surgery here. Possible transfer for vascular consultation. Additional history obtained via discussions with the ER provider. These discussions contributed to the creation of the above assessment and plan. I have reviewed patient's presenting documentation, labs, and imaging personally. Time-Based Coding :: [TOTAL MINUTES] spent with patient and on the chart (including review of chart, obtaining history, exam, reviewing outside data, placing orders, documenting exam and treatment plan, and counseling patient) on [DATE]. Quality VTE Deep Vein Thrombosis/Pulmonary Embolism Present on Admission: No
[2025-02-27] MEDS: BUPRENORPHINE/NALOXONE 8MG/2MG 1 TAB SL (16:06)
--- NOTE | 2025-02-27 16:06 | P.CONS_ITS ---
History of Present Illness Consult details Date Patient Seen: 02/27/25 Time Patient Seen: 15:30 Chief complaint: R leg infection Narrative: The patient is a 59-year-old male with diabetes, opiate use, and PAD who was admitted to the hospital yesterday with right diabetic foot infection and large ulcer. The patient reports that the ulcer has been present for several months and has gradually been worsening. He denies having any pain or discomfort nor has he had any fever or chills. The ulcer has been draining copious amount of fluid. Upon admission he was noted to have a white count of 14.7. X-rays suggested osteomyelitis in the right foot. MRI showed evidence for osteomyelitis of the 1st metatarsal head and 1st proximal phalanx and sesamoid bones. Arterial Doppler showed multifocal areas of high-grade 50-99% stenosis throughout the right lower extremity arterial vasculature. The patient is a current every day cigarette user. Past history is remarkable for left BKA 1 year ago for treatment of severe diabetic foot infection. The patient has been seen by Dr. Benito who has recommended a BKA. Meds Home Medications and Allergies Home Medications Medication Instructions Recorded Confirmed Type buprenorphine 8 mg-naloxone 2 mg 8 mg sublingual BID 02/27/25 02/27/25 History sublingual film (Suboxone) Allergies Allergy/AdvReac Type Severity Reaction Status Date / Time Penicillins [PENICILLINS] AdvReac Mild SKIN TEST Verified 02/27/25 12:26 NEGATIVE Review of Systems Cardiovascular Comments: No chest pain Respiratory Comments: No shortness of breath Exam Vital Signs (past 8 hours): - 02/27/25 12:00 02/27/25 15:48 Temperature 97.1 F L 97.3 F L Pulse Rate 90 98 H Respiratory Rate 20 17 Blood Pressure 159/70 H 146/72 H Pulse Oximetry 92 95 Oxygen Flow Rate 0 Oxygen Delivery Method Room Air Oxygen Flow Rate 0 Narrative Exam Narrative: The patient is well-developed well-nourished male who is alert and oriented and in no apparent distress. Resp Other: Unlabored Skin Other: Large necrotic foul smelling ulcer over 1st metatarsal head, tissue appears ischemic Neuro Other: Decreased lower extremity sensation Objective Labs 02/27/25 04:32 02/27/25 04:32 Labs: Laboratory Results - last 24 hr 02/26/25 02/27/25 20:14 04:32 WBC 14.4 H 9.6 RBC 4.92 4.53 Hgb 12.8 L 11.9 L Hct 38.3 L 35.6 L MCV 77.9 L 78.5 L MCH 26.1 26.2 MCHC 33.5 33.4 RDW 14.6 14.4 Plt Count 401 H 338 Neut % (Auto) 80.3 H 73.1 Lymph % (Auto) 10.6 L 13.6 L [place] % (Auto) 7.5 11.4 Eos % (Auto) 0.7 L 1.4 L Baso % (Auto) 0.9 0.5 Neut # (Auto) 71994 H 7000 Lymph # (Auto) 1500 1300 [place] # (Auto) 1100 H 1100 H Eos # (Auto) 100 100 Baso # (Auto) 100 0 ESR 43 H PT 14.8 H INR 1.3 APTT 23 L Sodium 132 L 135 L Potassium 4.6 4.0 Chloride 96 L 101 Carbon Dioxide 33 H 30 BUN 9 9 Creatinine 0.78 0.62 L Estimated GFR > 60 > 60 BUN/Creatinine Ratio 11.5 14.5 Glucose 203 H 198 H Hemoglobin A1c 10.7 H Lactate 1.1 Calcium 9.1 8.4 Total Bilirubin 0.5 AST 20 ALT 14 Alkaline Phosphatase 101 C-Reactive Protein 3.2 H Total Protein 8.9 H Albumin 3.6 Globulin 5.3 H Albumin/Globulin Ratio 0.7 L Lipase 25 Procalcitonin 0.069 PFSH Medical History Smoking addiction Diabetes CHF (congestive heart failure) Social History details: Ambulates with a prosthetic for a below-knee amputation on the left household members: other Tobacco & Substance Use Smoking Status: Current every day smoker alcohol intake: never Assessment & Plan Assessment and plan (1) Peripheral vascular disease of lower extremity with ulceration: Status: Acute (2) Diabetic foot ulcer: Qualifiers: Diabetes mellitus type: type 2 Diabetic foot ulcer location: u nspecified part of foot Laterality: right Non-pressure ulcer stage: with necrosis of bone Qualified Code(s): E11.621 - Type 2 diabetes mellitus with foot ulcer; L97.514 - Non-pressure chronic ulcer of other part of right foot with necrosis of bone Status: Acute (3) Osteomyelitis: Qualifiers: Laterality: right Osteomyelitis location: foot Osteomyelitis type: c hronic, with draining sinus Qualified Code(s): M86.471 - Chronic osteomyelitis with draining sinus, right ankle and foot Status: Acute Assessment & Plan narrative: The patient with severe PAD has a necrotic foul smelling Bills 3 diabetic ulcer the wraps around the dorsal, medial, and plantar aspects of the 1st metatarsal head that is unlikely to heal. Agree with plans for proceeding with BKA. In the meantime plan to start daily wet to wet dressing changes with Dakin's solution. Follow up at wound center after discharge if necessary. Time-Based Coding :: [45 MINUTES] spent with patient and on the chart (including review of chart, obtaining history, exam, reviewing outside data, placing orders, documenting exam and treatment plan, and counseling patient) on [02/27/25].
[2025-02-27] MEDS: SODIUM HYPOCHLORITE 473 ML SOLUTION 200 ML TOP (17:43)
[2025-02-27] MEDS: INSULIN GLARGINE 100 UNIT/ML 3ML PEN 10 UNIT SUBCUT (21:12)
[2025-02-27] MEDS: SODIUM CHLORIDE 0.9% FLUSH 10 ML IV ×2 (21:14→22:18)
[2025-02-28] VITALS: BP 152/75; PULSE 87; RESP 17; TEMP 36.1; O2SAT 95
[2025-02-28] MEDS: BUPRENORPHINE/NALOXONE 8MG/2MG 1 TAB SL ×2 (03:36→16:27)
[2025-02-28 04:00] VITALS: BP 120/81; O2SAT 92
[2025-02-28 06:51] LABS: Add Manual Diff / Slide Review NO; Basophils Absolute Auto 100 /uL (0-100); Basophils Percent Auto 0.7 % (0-2); Eosinophils Absolute Auto 200 /uL (0-450); Eosinophils Percent Auto 1.5 % (2-4); Hematocrit 36.1 % (41-53); Hemoglobin 11.9 g/dL (13.5-17.5); Lymphocytes Absolute Auto 1800 /uL (1100-4500); Lymphocytes Percent Auto 14.8 % (25-40); Mean Corpuscular HGB Conc 32.8 % (30-36); Mean Corpuscular Hemoglobin 25.7 PG (26-34); Mean Corpuscular Volume 78.2 fL (80-100); Monocytes Absolute Auto 1200 /uL (0-900); Monocytes Percent Auto 9.7 % (3-14); Neutrophils Absolute Auto 8700 /uL (1500-7000); Neutrophils Percent Auto 73.3 % (50-75); Platelet Count 351 X10^3/uL (150-400); Red Blood Cell Count 4.62 X10^6/uL (4.5-5.9); White Blood Cell Count 11.9 X10^3/uL (4.5-11.0)
[2025-02-28 07:03] LABS: BUN Creatinine Ratio 13.8 (6-22); Blood Urea Nitrogen 8 mg/dL (9-20); Calcium 8.3 mg/dL (8.4-10.2); Carbon Dioxide 28 mmol/L (22-32); Chloride 102 mmol/L (98-107); Estimated Glomerular Filt Rate > 60 mL/min (>60); Glucose 175 mg/dL (70-99); HEMOLYSIS < 15 (0-50); Potassium 4.1 mmol/L (3.4-5.1); Sodium 132 mmol/L (137-145)
[2025-02-28 08:00] VITALS: BP 149/76; PULSE 100; RESP 20; TEMP 36.3; O2SAT 93
[2025-02-28] MEDS: VANCOMYCIN TROUGH 1 REQUEST MISC (08:31)
[2025-02-28] MEDS: VANCOMYCIN 1,250 MG/250 ML PIGGYBACK 250 MG IV ×3 (08:31→22:44)
[2025-02-28] MEDS: INSULIN LISPRO 100 UNIT/ML 3ML VIAL SUBCUT ×3 (08:32→20:49)
[2025-02-28] MEDS: SODIUM CHLORIDE 0.9% FLUSH 10 ML IV ×2 (08:33→20:50)
[2025-02-28] MEDS: CEFEPIME 2 GM in SODIUM CHLORIDE 0.9% 100 ML IV ×2 (10:32→21:47)
[2025-02-28 11:08] LABS: Vancomycin Peak 33.7 ug/mL (20-40)
[2025-02-28 12:00] VITALS: BP 144/79; PULSE 86; RESP 18; TEMP 36.3; O2SAT 96
--- NOTE | 2025-02-28 14:26 | PM.PN.1 ---
Subjective Subjective Date Patient Seen: 02/28/25 Interval history: This is a 59 M with PMH of DM2, HTN, CHFpEF (EF 42% 09/2023), PAD, prior L BKA (09/2023), opiate use disorder on suboxone who presents for worsening ulceration of his R lower leg for the last severeal months. Orthopedic provider currently plan for BKA next week on 03/06. Exam Vital Signs (past 8 hours): - 02/28/25 08:00 02/28/25 12:00 Temperature 97.3 F L 97.3 F L Pulse Rate 100 H 86 Respiratory Rate 20 18 Blood Pressure 149/76 H 144/79 H Pulse Oximetry 93 96 Oxygen Flow Rate 0 0 Oxygen Delivery Method Room Air Oxygen Flow Rate 0 Narrative Exam Narrative: General - in no distress Skin - Rt 1 st metatarsal diabetic ulcer, Rt foot cellulitis CVS - tachycardic, regular RS - tachypneic, not wheezy GI - not distyended Neuro - Rt foot numbness Ext - s/p Lt BKA, Objective Imaging CTA LE: Radiologist's impression: 1. Severe high-grade stenosis of the bilateral superficial femoral and profunda femoris arteries, with patent but poor opacification of the right lower extremity triple-vessel runoff. The CTA is concordant with the right lower extremity arterial Doppler ultrasound findings. 2. 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 3. Right foot 1st ray osteomyelitis with likely superimposed cellulitis. 4. Cholelithiasis. Labs 02/28/25 06:35 02/28/25 06:35 Labs: Laboratory Results - last 24 hr 02/28/25 02/28/25 06:35 10:30 WBC 11.9 H RBC 4.62 Hgb 11.9 L Hct 36.1 L MCV 78.2 L MCH 25.7 L MCHC 32.8 RDW 14.0 Plt Count 351 Neut % (Auto) 73.3 Lymph % (Auto) 14.8 L [place] % (Auto) 9.7 Eos % (Auto) 1.5 L Baso % (Auto) 0.7 Neut # (Auto) 8700 H Lymph # (Auto) 1800 [place] # (Auto) 1200 H Eos # (Auto) 200 Baso # (Auto) 100 Sodium 132 L Potassium 4.1 Chloride 102 Carbon Dioxide 28 BUN 8 L Creatinine 0.58 L Estimated GFR > 60 BUN/Creatinine Ratio 13.8 Glucose 175 H Calcium 8.3 L Vancomycin Peak 33.7 Vancomycin Trough 17.0 PFSH Medical History Smoking addiction Diabetes CHF (congestive heart failure) Social History details: Ambulates with a prosthetic for a below-knee amputation on the left household members: other Smoking Status: Current every day smoker alcohol intake: never Assessment & Plan Assessment & Plan narrative: Infected Rt 1st metatarsal diabetic ulcer with osteomyelitis / Sepsis ruled out - Cefepime, Vancomycin, stopped IV fluids shortly after admission. - telemetry monitoring - okay for diet, continue to work with orthopedics and the hospital regarding BKA timing, currently scheduled for Tuesday per orthopedic surgeon. Currently after discussion with two vascular surgeons yesterday and today no vascular interventions are recommended at his time. - MRI shows 1st toe osteo. CTA results are: Severe high-grade stenosis of the bilateral superficial femoral and profunda femoris arteries, with patent but poor opacification of the right lower extremity triple-vessel runoff. The CTA is concordant with the right lower extremity arterial Doppler ultrasound findings. 2. 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 Right foot 1st ray osteomyelitis with likely superimposed cellulitis NIDDM, type 2 / non-compliance with metformin - prior admission glucose was controlled on 20 U lantus daily +5 U TID AC, will hold home oral agents at this time. Started with 10 U at bedtime, will add 4 U TID AC given elevated glucose today after meals, 175 fasting this morning on lab work. Continue to make adjustments as needed. - A1C 10.7 % Smoker - nicotine replacement, prn albuterol Hx of opiate use - on suboxane at home, will continue today. Code: Full, surrogate is patient's daughter DVT: L BKA, holding chemical ppx prior to surgery, SCD of R leg. I have utilized all available immediate resources to obtain, update, or review the patient's current medications. Dispo: patient admitted under inpatient status. Unlikely SNF placement given substance use history. Additional history obtained via discussions with the ER provider. These discussions contributed to the creation of the above assessment and plan. I have reviewed patient's presenting documentation, labs, and imaging personally. Time-Based Coding :: [TOTAL MINUTES] spent with patient and on the chart (including review of chart, obtaining history, exam, reviewing outside data, placing orders, documenting exam and treatment plan, and counseling patient) on [DATE]. Quality VTE Deep Vein Thrombosis/Pulmonary Embolism Present on Admission: No
[2025-02-28 16:00] VITALS: BP 150/84; PULSE 95; RESP 18; TEMP 36.4; O2SAT 96
[2025-02-28] MEDS: SODIUM HYPOCHLORITE 473 ML SOLUTION 200 ML TOP (17:30)
[2025-02-28 19:36] VITALS: BP 133/74; PULSE 97; RESP 16; TEMP 36.3; O2SAT 95
--- NOTE | 2025-02-28 20:17 | PM.PNPO.1 ---
Subjective Subjective Interval history: He notes minimal pain. He notes that he does drive and does use a prosthesis on his left lower extremity. He is a community ambulator. Exam Vital Signs (past 8 hours): - 02/28/25 16:00 02/28/25 19:36 Temperature 97.5 F L 97.3 F L Pulse Rate 95 H 97 H Respiratory Rate 18 16 Blood Pressure 150/84 H 133/74 Pulse Oximetry 96 95 Oxygen Flow Rate 0 0 Oxygen Delivery Method Room Air Oxygen Flow Rate 0 Narrative Exam Narrative: He is resting comfortably in bed. His dressing is intact. Still has a ischemia of his right foot. Objective Labs 02/28/25 06:35 02/28/25 06:35 Labs: Laboratory Results - last 24 hr 02/28/25 02/28/25 06:35 10:30 WBC 11.9 H RBC 4.62 Hgb 11.9 L Hct 36.1 L MCV 78.2 L MCH 25.7 L MCHC 32.8 RDW 14.0 Plt Count 351 Neut % (Auto) 73.3 Lymph % (Auto) 14.8 L [place] % (Auto) 9.7 Eos % (Auto) 1.5 L Baso % (Auto) 0.7 Neut # (Auto) 8700 H Lymph # (Auto) 1800 [place] # (Auto) 1200 H Eos # (Auto) 200 Baso # (Auto) 100 Sodium 132 L Potassium 4.1 Chloride 102 Carbon Dioxide 28 BUN 8 L Creatinine 0.58 L Estimated GFR > 60 BUN/Creatinine Ratio 13.8 Glucose 175 H Calcium 8.3 L Vancomycin Peak 33.7 Vancomycin Trough 17.0 PFSH Medical History Smoking addiction Diabetes CHF (congestive heart failure) Social History details: Ambulates with a prosthetic for a below-knee amputation on the left household members: other Smoking Status: Current every day smoker alcohol intake: never Assessment & Plan Post-op Assessment and plan (1) Peripheral vascular disease of lower extremity with ulceration: (2) Sepsis: (3) Cellulitis of foot: (4) Osteomyelitis: (5) Diabetic foot ulcer: Assessment and Plan narrative: Clinically he is being stabilized on the medicine service. He clearly has significant necrosis of his right foot. He has known peripheral vascular disorder. He has previously been a community ambulator and apparently does use a prosthesis on the left. Medicine is working to see if he was a candidate for revascularization. (6) Diabetes: Quality VTE Deep Vein Thrombosis/Pulmonary Embolism Present on Admission: No
[2025-02-28] MEDS: INSULIN GLARGINE 100 UNIT/ML 3ML PEN 10 UNIT SUBCUT (20:49)
[2025-03-01] VITALS (7 sets, daily range): BP systolic 134–164; BP diastolic 79–89; PULSE 89–104; RESP 16–20; TEMP 35.7–36.4; O2SAT 92–98
[2025-03-01] MEDS: BUPRENORPHINE/NALOXONE 8MG/2MG 1 TAB SL ×2 (04:15→16:38)
[2025-03-01] MEDS: VANCOMYCIN 1,250 MG/250 ML PIGGYBACK 250 MG IV (08:47)
[2025-03-01] MEDS: INSULIN LISPRO 100 UNIT/ML 3ML VIAL SUBCUT ×6 (08:47→17:35)
[2025-03-01] MEDS: CEFEPIME 2 GM in SODIUM CHLORIDE 0.9% 100 ML IV (10:58)
[2025-03-01] MEDS: MAGNESIUM HYDROXIDE 30 ML UDC PO (10:59)
[2025-03-01] MEDS: DOCUSATE 100 MG CAPSULE PO ×2 (10:59→21:16)
[2025-03-01] MEDS: SODIUM CHLORIDE 0.9% FLUSH 10 ML IV ×2 (11:01→21:18)
[2025-03-01] MEDS: INSULIN GLARGINE 100 UNIT/ML 3ML PEN SUBCUT (11:01)
--- NOTE | 2025-03-01 11:58 | PM.PN.IH.1 ---
Subjective Subjective Date Patient Seen: 03/01/25 Time Patient Seen: 09:25 Interval history: This is a 59 M with PMH of DM2, HTN, CHFpEF (EF 42% 09/2023), PAD, prior L BKA (09/2023), opiate use disorder on suboxone who presents for worsening ulceration of his R lower leg for the last severeal months. Orthopedic provider currently plan for BKA next week on 03/06. 03/01: The patient has no new complaints. Blood sugars are in the 200-300 range. Exam Vital Signs (past 8 hours): - 03/01/25 04:10 03/01/25 08:00 Temperature 96.4 F L 97.3 F L Pulse Rate 104 H 89 Respiratory Rate 19 20 Blood Pressure 143/84 H 144/79 H Pulse Oximetry 93 92 Oxygen Flow Rate 0 0 Oxygen Delivery Method Room Air Oxygen Flow Rate 0 Narrative Exam Narrative: General - in no distress CVS - regular rate and rhythm RS - clear GI - not distended Neuro - Rt foot numbness Ext - s/p Lt BKA, right foot bandage in place, Rt 1 st metatarsal diabetic ulcer, Rt foot cellulitis, grade 3 ulcers in toes, foul odor and discharge Objective ECG Impression: 02/26/2025: Sinus rhythm with 1st degree AV block at 90bpm Nonspecific T wave abnormality Prolonged QTc 486msec Imaging *: Radiologist's impression: 1. Chest xray 02/26/2025: No acute cardiopulmonary abnormality is seen. 2. Right foot xray 02/26/2025: Osteomyelitis of the 1st metatarsal head/neck with intra-articular extension at the MTP joint. 3. Arterial doppler US 02/26/2025: Multifocal areas of high-grade 50-99% stenosis throughout the right lower extremity arterial vasculature. 4. Foot MRI 02/27/2025: 1. Full-thickness ulceration involving plantar aspect of 1st MTP joint with extensive midfoot and forefoot soft tissue cellulitis. No discrete drainable abscess collection. 2. Finding is consistent with osteomyelitis involving 1st metatarsal bone and 1st proximal phalanx as well as medial and lateral sesamoids of 1st metatarsal head with extensive marrow edema and bony erosive changes. Heterogeneous contrast enhancement in the area of edema is seen. 3. No other area of abnormal marrow signal. Susceptibility artifacts are noted in plantar aspect of 3rd toe. No other area of abnormal intraosseous enhancement. 4. No gross full-thickness extensor or flexor tendon rupture. No gross plantar foot muscle signal abnormalities. No enhancing soft tissue mass. 5. Lower extremity CTA 02/27/2025: 1. Severe high-grade stenosis of the bilateral superficial femoral and profunda femoris arteries, with patent but poor opacification of the right lower extremity triple-vessel runoff. The CTA is concordant with the right lower extremity arterial Doppler ultrasound findings. 2. 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 3. Right foot 1st ray osteomyelitis with likely superimposed cellulitis. 4. Cholelithiasis. Labs 02/28/25 06:35 02/28/25 06:35 [facility] Medical History CHF (congestive heart failure) Diabetes Smoking addiction Social History details: Ambulates with a prosthetic for a below-knee amputation on the left household members: other Smoking Status: Current every day smoker alcohol intake: never Assessment & Plan Assessment & Plan narrative: Infected Rt 1st metatarsal diabetic ulcer with osteomyelitis / Sepsis ruled out - Culturing Klebsiella oxytoca and Group g streptococcus - Stop Cefepime, Vancomycin, and treat with IV Ceftriaxone 2g IV q24hr - Plan right BKA Severe PAD/chronic tobacco use/diabetic microvascular disease - Not a candidate for vascular intervention per vascular surgery consultation x 2 - Plan right BKA Diabetes mellitus, type 2 / non-compliance with metformin - increase to 20 U lantus daily +5 U TID AC, will hold home oral agents at this time. - poor long-term control A1C 10.7 % Tobacco use disorder - nicotine replacement, prn albuterol Hx of opiate use - continue Suboxone home regimen. Code: Full, surrogate is patient's daughter DVT: Lovenox Dispo: patient admitted under inpatient status. Quality VTE Deep Vein Thrombosis/Pulmonary Embolism Present on Admission: No [employer] [employer] Document charge(s): No Charge Codes Subsequent inpatient/observation care: [id number]
[2025-03-01] MEDS: ENOXAPARIN 40 MG/0.4 ML SYRINGE SUBCUT (12:10)
--- NOTE | 2025-03-01 13:07 | CM.DPNOTE ---
DCP Cont Reviewed chart. Patient discussed in multidisciplinary rounds. Dr So anticipates patient will be here until his Rt BKA can be completed by the Ortho team- likely next Tuesday 03/06. Discharge plan will be dependent on patient's post operative course. CM team following clinical course closely. If patient has a Rt BKA done INPT at , SNF upon discharge will likely be recommended. Will plan to reassess needs post operatively. ELIZABETH
--- NOTE | 2025-03-01 14:41 | PC.NURSE ---
Addendum entered by Brunilda Fernandes R.N. 03/04/25 09:07: 03/04- Late entry: Patients wounds are on the R.foot not the Left foot as he has a L.bka. Thom Original Note: Patients r.foot dressing changed, he has a open would or skin ulcer to the left lower bottom of his foot, another larger area with black eschar to the r.side of the bottom of his foot, and some dried skin to his legs and shins with wounds. 4x4 and a role of Kurlex saturated in Dakins solution and placed on wounds and then a dry kurlex was applied over and around patients foot and ibrahim. The wound has a foul odor, patient is getting iv antibiotics. He is sitting up in the chair, he had a bed bath and states that he feels better. Patient also has a medium sized pink area on the right side of his lower back above his buttocks that is banchable and not open. Applied an allevyn dressing for comfort and to protect area better. Patient states that he got this from sitting in his wheel chair. He does have dry skin on his shins and his r.leg is slightly swollen but patient states that it is better. Photos have been taken of patients body issues.
[2025-03-01] MEDS: SODIUM HYPOCHLORITE 473 ML SOLUTION 200 ML TOP (17:33)
[2025-03-01] MEDS: INSULIN GLARGINE 100 UNIT/ML 3ML PEN 20 UNIT SUBCUT (21:17)
[2025-03-01] MEDS: cefTRIAXone 2,000 MG in SODIUM CHLORIDE 0.9% 100 ML 200 MG IV (21:18)
[2025-03-02 03:00] VITALS: BP 162/84; PULSE 91; RESP 20; TEMP 35.8; O2SAT 99
[2025-03-02] MEDS: BUPRENORPHINE/NALOXONE 8MG/2MG 1 TAB SL ×2 (03:58→17:48)
[2025-03-02 08:16] VITALS: BP 145/78; PULSE 84; RESP 15; TEMP 35.8; O2SAT 95
[2025-03-02] MEDS: MAGNESIUM HYDROXIDE 30 ML UDC PO (08:17)
[2025-03-02] MEDS: ENOXAPARIN 40 MG/0.4 ML SYRINGE SUBCUT (08:17)
[2025-03-02] MEDS: DOCUSATE 100 MG CAPSULE PO (08:17)
[2025-03-02] MEDS: INSULIN LISPRO 100 UNIT/ML 3ML VIAL SUBCUT ×6 (08:18→17:49)
[2025-03-02] MEDS: SODIUM CHLORIDE 0.9% FLUSH 10 ML IV ×2 (08:19→21:22)
--- NOTE | 2025-03-02 11:01 | PM.PN.IH.1 ---
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 Orthopedic provider currently plan for BKA next week on 03/06. 03/01: The patient has no new complaints. Blood sugars are in the 200-300 range. 03/02: No new issues. He has no complaints. Blood sugars in the 170s to 200 range. Exam Vital Signs (past 8 hours): - 03/02/25 08:16 Temperature 96.5 F L Pulse Rate 84 Respiratory Rate 15 Blood Pressure 145/78 H Pulse Oximetry 95 Oxygen Flow Rate 0 Oxygen Delivery Method Room Air Oxygen Flow Rate 0 Narrative Exam Narrative: General - in no distress GI - not distended Neuro - Rt foot numbness Ext - s/p Lt BKA, right foot bandage in place, Rt 1 st metatarsal diabetic ulcer, Rt foot cellulitis, grade 3 ulcers in toes, foul odor and discharge Objective ECG Impression: 02/26/2025: Sinus rhythm with 1st degree AV block at 90bpm Nonspecific T wave abnormality Prolonged QTc 486msec Imaging *: Radiologist's impression: 1. Chest xray 02/26/2025: No acute cardiopulmonary abnormality is seen. 2. Right foot xray 02/26/2025: Osteomyelitis of the 1st metatarsal head/neck with intra-articular extension at the MTP joint. 3. Arterial doppler US 02/26/2025: Multifocal areas of high-grade 50-99% stenosis throughout the right lower extremity arterial vasculature. 4. Foot MRI 02/27/2025: 1. Full-thickness ulceration involving plantar aspect of 1st MTP joint with extensive midfoot and forefoot soft tissue cellulitis. No discrete drainable abscess collection. 2. Finding is consistent with osteomyelitis involving 1st metatarsal bone and 1st proximal phalanx as well as medial and lateral sesamoids of 1st metatarsal head with extensive marrow edema and bony erosive changes. Heterogeneous contrast enhancement in the area of edema is seen. 3. No other area of abnormal marrow signal. Susceptibility artifacts are noted in plantar aspect of 3rd toe. No other area of abnormal intraosseous enhancement. 4. No gross full-thickness extensor or flexor tendon rupture. No gross plantar foot muscle signal abnormalities. No enhancing soft tissue mass. 5. Lower extremity CTA 02/27/2025: 1. Severe high-grade stenosis of the bilateral superficial femoral and profunda femoris arteries, with patent but poor opacification of the right lower extremity triple-vessel runoff. The CTA is concordant with the right lower extremity arterial Doppler ultrasound findings. 2. 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 3. Right foot 1st ray osteomyelitis with likely superimposed cellulitis. 4. Cholelithiasis. Labs 02/28/25 06:35 02/28/25 06:35 [facility] Medical History CHF (congestive heart failure) Diabetes Smoking addiction Social History details: Ambulates with a prosthetic for a below-knee amputation on the left household members: other Smoking Status: Current every day smoker alcohol intake: never Assessment & Plan Assessment & Plan narrative: Infected Rt 1st metatarsal diabetic ulcer with osteomyelitis / Sepsis ruled out - Culturing Klebsiella oxytoca and Group g streptococcus - Stopped Cefepime, Vancomycin on 03/01, and continue with IV Ceftriaxone 2g IV q24hr - Plan right BKA Severe PAD/chronic tobacco use/diabetic microvascular disease - Not a candidate for vascular intervention per vascular surgery consultation x 2 - Plan right BKA Diabetes mellitus, type 2 / non-compliance with metformin - increased to 20 U lantus daily on 03/01 and continue 5 U TID AC, will hold home oral agents at this time. - poor long-term control A1C 10.7 % Tobacco use disorder - nicotine replacement, prn albuterol Hx of opiate use - continue Suboxone home regimen. Code: Full, surrogate is patient's daughter DVT: Lovenox Dispo: patient admitted under inpatient status. Quality VTE Deep Vein Thrombosis/Pulmonary Embolism Present on Admission: No [facility] Associate Director Of Biostatistics Document charge(s): No Charge Codes Subsequent inpatient/observation care: [id number]
[2025-03-02 12:00] VITALS: BP 128/76; PULSE 79; RESP 16; TEMP 35.7; O2SAT 97
--- NOTE | 2025-03-02 12:14 | PM.PN.1 ---
Subjective Subjective Interval history: He notes he has feeling a little better overall. He did get his below-knee prosthesis in an it is at bedside. He is fairly minimal pain in the right leg. Exam Vital Signs (past 8 hours): - 03/02/25 08:16 Temperature 96.5 F L Pulse Rate 84 Respiratory Rate 15 Blood Pressure 145/78 H Pulse Oximetry 95 Oxygen Flow Rate 0 Oxygen Delivery Method Room Air Oxygen Flow Rate 0 Narrative Exam Narrative: There is decreased erythema in the right lower extremity, there is obvious gross necrosis underneath the MTP joint of the great toe, he is substantially decreased swelling of the right lower extremity, there is an open wound in the arch region, there was necrosis of the skin under the MTP joint and there is some necrotic tissue on the anterior ibrahim. I removed his dressing and then did a gentle bedside cleaning and scrubbing and debriding of skin tissue. We tolerated without difficulty. Objective Labs 02/28/25 06:35 02/28/25 06:35 [facility] Medical History CHF (congestive heart failure) Diabetes Smoking addiction Social History details: Ambulates with a prosthetic for a below-knee amputation on the left household members: other Smoking Status: Current every day smoker alcohol intake: never Assessment & Plan Assessment and plan (1) Peripheral vascular disease of lower extremity with ulceration: Status: Acute (2) Sepsis: Status: Acute (3) Cellulitis of foot: Status: Acute (4) Diabetes: Status: Acute (5) Smoking addiction: Status: Acute (6) Diabetic foot ulcer: Qualifiers: Diabetes mellitus type: type 2 Diabetic foot ulcer location: unspecified part of foot Laterality: right Non-pressure ulcer stage: with necrosis of bone Qualified Code(s): E11.621 - Type 2 diabetes mellitus with foot ulcer; L97.514 - Non-pressure chronic ulcer of other part of right foot with necrosis of bone Status: Acute Plan He is clinically improving with adequate diabetic control, IV antibiotics and rest with right leg elevation. The erythema in his ibrahim is decreased in comparison to previously. He clearly has necrosis underneath his great toe and MTP joint. His skin is intact on the heel. The skin in the erythema is decreasing also on the anterior ibrahim. Probably needs a right below-knee amputation. He is tentatively scheduled for surgery on Tuesday with Dr. Low. His status is improving with his current hospital treatment. There is some chance that he may be a candidate for an amputation less than a below-knee amputation which would allow him to maintain better ambulation. I told him that I will come and do a repeat wound check tomorrow and I would encourage him to continue to work on elevation and we are going to continue antibiotics and good diabetic control. The status of his skin is improving to the extent that if he requires a below-knee amputation it is likely to be more successful in comparison to his status at the time of admission. Time-Based Coding :: [TOTAL MINUTES] spent with patient and on the chart (including review of chart, obtaining history, exam, reviewing outside data, placing orders, documenting exam and treatment plan, and counseling patient) on [DATE]. Quality VTE Deep Vein Thrombosis/Pulmonary Embolism Present on Admission: No
[2025-03-02 15:38] VITALS: BP 150/77; PULSE 85; RESP 15; O2SAT 98
[2025-03-02] MEDS: SODIUM HYPOCHLORITE 473 ML SOLUTION 200 ML TOP (17:49)
[2025-03-02 20:00] VITALS: BP 146/82; PULSE 88; RESP 19; TEMP 36.6; O2SAT 96
[2025-03-02] MEDS: INSULIN GLARGINE 100 UNIT/ML 3ML PEN 20 UNIT SUBCUT (21:19)
[2025-03-02] MEDS: cefTRIAXone 2,000 MG in SODIUM CHLORIDE 0.9% 100 ML 200 MG IV (21:21)
[2025-03-03] VITALS: BP 136/88; PULSE 74; RESP 19; TEMP 37.1; O2SAT 96
[2025-03-03] MEDS: BUPRENORPHINE/NALOXONE 8MG/2MG 1 TAB SL ×2 (03:58→15:58)
[2025-03-03 04:00] VITALS: BP 138/68; PULSE 94; RESP 19; TEMP 36.7; O2SAT 96
--- NOTE | 2025-03-03 07:50 | P.PN_ITS ---
Subjective Subjective Date Patient Seen: 03/03/25 Time Patient Seen: 07:10 Interval history: This is a 59 M with PMH of DM2, HTN, CHFpEF (EF 42% 09/2023), PAD, prior L BKA (09/2023), opiate use disorder on suboxone who presents for worsening ulceration of his R lower leg for the last severeal months. Orthopedic provider currently plan for BKA next week on 03/06. 03/01: The patient has no new complaints. Blood sugars are in the 200-300 range. 03/02: No new issues. He has no complaints. Blood sugars in the 170s to 200 range. 03/03: No new complaints. Right leg wound cleaned by Orthopedics yesterday. Blood sugars in the 140s to 150s range. Exam Vital Signs (past 8 hours): - 03/03/25 00:00 03/03/25 04:00 Temperature 98.8 F 98.0 F Pulse Rate 74 94 H Respiratory Rate 19 19 Blood Pressure 136/88 138/68 Pulse Oximetry 96 96 Oxygen Flow Rate 0 0 Oxygen Delivery Method Room Air Oxygen Flow Rate 0 Narrative Exam Narrative: General - in no distress GI - not distended Neuro - Rt foot numbness Ext - s/p Lt BKA, right foot bandage in place, Rt 1 st metatarsal diabetic ulcer, Rt foot cellulitis, grade 3 ulcers in toes, odor and discharge Objective ECG Impression: 02/26/2025: Sinus rhythm with 1st degree AV block at 90bpm Nonspecific T wave abnormality Prolonged QTc 486msec Imaging *: Radiologist's impression: 1. Chest xray 02/26/2025: No acute cardiopulmonary abnormality is seen. 2. Right foot xray 02/26/2025: Osteomyelitis of the 1st metatarsal head/neck with intra-articular extension at the MTP joint. 3. Arterial doppler US 02/26/2025: Multifocal areas of high-grade 50-99% stenosis throughout the right lower extremity arterial vasculature. 4. Foot MRI 02/27/2025: 1. Full-thickness ulceration involving plantar aspect of 1st MTP joint with extensive midfoot and forefoot soft tissue cellulitis. No discrete drainable abscess collection. 2. Finding is consistent with osteomyelitis involving 1st metatarsal bone and 1st proximal phalanx as well as medial and lateral sesamoids of 1st metatarsal head with extensive marrow edema and bony erosive changes. Heterogeneous contrast enhancement in the area of edema is seen. 3. No other area of abnormal marrow signal. Susceptibility artifacts are noted in plantar aspect of 3rd toe. No other area of abnormal intraosseous enhancement. 4. No gross full-thickness extensor or flexor tendon rupture. No gross plantar foot muscle signal abnormalities. No enhancing soft tissue mass. 5. Lower extremity CTA 02/27/2025: 1. Severe high-grade stenosis of the bilateral superficial femoral and profunda femoris arteries, with patent but poor opacification of the right lower extremity triple-vessel runoff. The CTA is concordant with the right lower extremity arterial Doppler ultrasound findings. 2. 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 3. Right foot 1st ray osteomyelitis with likely superimposed cellulitis. 4. Cholelithiasis. Labs 02/28/25 06:35 02/28/25 06:35 [facility] Medical History CHF (congestive heart failure) Diabetes Smoking addiction Social History details: Ambulates with a prosthetic for a below-knee amputation on the left household members: other Smoking Status: Current every day smoker alcohol intake: never Assessment & Plan Assessment & Plan narrative: Infected Rt 1st metatarsal diabetic ulcer with osteomyelitis / Sepsis ruled out - Culturing Klebsiella oxytoca and Group g streptococcus - Stopped Cefepime, Vancomycin on 03/01, and continue with IV Ceftriaxone 2g IV q24hr - Plan right BKA. Orthopedic follow-up and management appreciated. Severe PAD/chronic tobacco use/diabetic microvascular disease - Not a candidate for vascular intervention per vascular surgery consultation x 2 - Plan right BKA Diabetes mellitus, type 2 / non-compliance with metformin - increased to 20 U lantus daily on 03/01 and continue 5 U TID AC, will hold home oral agents at this time. - poor long-term control A1C 10.7 %, currently well-controlled Tobacco use disorder - nicotine replacement, prn albuterol Hx of opiate use - continue Suboxone home regimen. Code: Full, surrogate is patient's daughter DVT: Lovenox Dispo: patient admitted under inpatient status. Quality VTE Deep Vein Thrombosis/Pulmonary Embolism Present on Admission: No [facility] [employer] Document charge(s): No Charge Codes Subsequent inpatient/observation care: [id number]
[2025-03-03 08:00] VITALS: BP 144/77; PULSE 75; RESP 14; TEMP 35.6; O2SAT 95
[2025-03-03] MEDS: INSULIN LISPRO 100 UNIT/ML 3ML VIAL SUBCUT ×5 (08:10→17:52)
[2025-03-03] MEDS: SODIUM CHLORIDE 0.9% FLUSH 10 ML IV ×2 (08:13→22:32)
[2025-03-03] MEDS: ENOXAPARIN 40 MG/0.4 ML SYRINGE SUBCUT (08:13)
--- NOTE | 2025-03-03 12:46 | P.PN_ITS ---
Subjective Subjective Interval history: He notes he is doing well. He has minimal pain. Exam Vital Signs (past 8 hours): - 03/03/25 08:00 Temperature 96.0 F L Pulse Rate 75 Respiratory Rate 14 Blood Pressure 144/77 H Pulse Oximetry 95 Oxygen Flow Rate 0 Oxygen Delivery Method Room Air Oxygen Flow Rate 0 Narrative Exam Narrative: persistent drainage from MTP joint and some mild drainage from the midfoot, decreased erythema. foot and leg is gently debrided removing necrotic skin. Objective Labs 02/28/25 06:35 02/28/25 06:35 [facility] Medical History CHF (congestive heart failure) Diabetes Smoking addiction Social History details: Ambulates with a prosthetic for a below-knee amputation on the left household members: other Smoking Status: Current every day smoker alcohol intake: never Assessment & Plan Assessment and plan (1) Peripheral vascular disease of lower extremity with ulceration: Status: Acute (2) Sepsis: Status: Acute (3) Cellulitis of foot: Status: Acute (4) Diabetes: Status: Acute (5) Diabetic foot ulcer: Qualifiers: Diabetes mellitus type: type 2 Diabetic foot ulcer location: u nspecified part of foot Laterality: right Non-pressure ulcer stage: with necrosis of bone Qualified Code(s): E11.621 - Type 2 diabetes mellitus with foot ulcer; L97.514 - Non-pressure chronic ulcer of other part of right foot with necrosis of bone Status: Acute Plan I have recommended we continue iv antibiotics. I told the nurses to put him in the shower, OK to get the leg wet. Plan is for surgery on Wens. His wounds and cellulitis and skin are improving slowly. Time-Based Coding :: [TOTAL MINUTES] spent with patient and on the chart (including review of chart, obtaining history, exam, reviewing outside data, placing orders, documenting exam and treatment plan, and counseling patient) on [DATE]. Quality VTE Deep Vein Thrombosis/Pulmonary Embolism Present on Admission: No
[2025-03-03 16:00] VITALS: BP 145/83; PULSE 90; RESP 17; TEMP 35.9; O2SAT 100
[2025-03-03] MEDS: SODIUM HYPOCHLORITE 473 ML SOLUTION 200 ML TOP (17:55)
[2025-03-03 19:00] VITALS: BP 176/92; PULSE 98; RESP 18; TEMP 36.4; O2SAT 98
[2025-03-03] MEDS: INSULIN GLARGINE 100 UNIT/ML 3ML PEN 20 UNIT SUBCUT (22:10)
[2025-03-03] MEDS: cefTRIAXone 2,000 MG in SODIUM CHLORIDE 0.9% 100 ML 200 MG IV (22:40)
[2025-03-03 23:00] VITALS: BP 122/67; PULSE 87; RESP 18; TEMP 36.1; O2SAT 97
[2025-03-04 03:00] VITALS: BP 133/79; PULSE 94; RESP 18; O2SAT 94
[2025-03-04] MEDS: BUPRENORPHINE/NALOXONE 8MG/2MG 1 TAB SL ×2 (03:32→16:50)
--- NOTE | 2025-03-04 07:37 | PM.PN.1 ---
Subjective Subjective Interval history: Summary: This is a 59 M with PMH of DM2, HTN, CHFpEF (EF 42% 09/2023), PAD, prior L BKA (09/2023), opiate use disorder on suboxone who presents for worsening ulceration of his R lower leg for the last severeal months. Orthopedic provider currently plan for BKA next week on 03/06. Hospital course: 03/01: The patient has no new complaints. Blood sugars are in the 200-300 range. 03/02: No new issues. He has no complaints. Blood sugars in the 170s to 200 range. 03/03: No new complaints. Right leg wound cleaned by Orthopedics yesterday. Blood sugars in the 140s to 150s range. S: He was doing well, denies pain or other concerns. He states he was not aware of any surgical plan at this point. Exam Vital Signs (past 8 hours): - 03/04/25 03:00 Pulse Rate 94 H Respiratory Rate 18 Blood Pressure 133/79 Pulse Oximetry 94 Oxygen Delivery Method Room Air Oxygen Flow Rate 0 Narrative Exam Narrative: NAD, alert and oriented. Fluent speech. Lungs are clear, normal rate and effort. Heart is regular, no murmur gallop or rub. Abdomen is soft, non distended. Extremities: s/p Lt BKA, right foot bandage in place, Rt 1 st metatarsal diabetic ulcer, Rt foot cellulitis, grade 3 ulcers in toes, odor and discharge Objective Labs 02/28/25 06:35 02/28/25 06:35 [facility] Medical History Smoking addiction Diabetes CHF (congestive heart failure) Social History details: Ambulates with a prosthetic for a below-knee amputation on the left household members: other Smoking Status: Current every day smoker alcohol intake: never Assessment & Plan Assessment & Plan narrative: 1. Infected Rt 1st metatarsal diabetic ulcer with osteomyelitis / Sepsis ruled out - Culturing Klebsiella oxytoca and Group g streptococcus - Stopped Cefepime, Vancomycin on 03/01, and continue with IV Ceftriaxone 2g IV q24hr - Plan right BKA. Orthopedic follow-up and management appreciated. 2. Severe PAD/chronic tobacco use/diabetic microvascular disease - Not a candidate for vascular intervention per vascular surgery consultation x 2 - Plan right BKA 3. Diabetes mellitus, type 2 / non-compliance with metformin - increased to 20 U lantus daily on 03/01 and continue 5 U TID AC, will hold home oral agents at this time. - poor long-term control A1C 10.7 %, currently well-controlled 4. Tobacco use disorder - nicotine replacement, prn albuterol 5. Hx of opiate use - continue Suboxone home regimen. PLAN: -Continue current antibiotics. -Request bed orthopedics speaks with the patient again about proposed surgery. -Anesthesia has requested a 2D echo to further assess LV function, last echo was year and a half ago with an EF of 40%. He denies having been on beta blockers in the past. Code: Full, surrogate is patient's daughter DVT: Lovenox Time-Based Coding :: [TOTAL MINUTES] spent with patient and on the chart (including review of chart, obtaining history, exam, reviewing outside data, placing orders, documenting exam and treatment plan, and counseling patient) on [DATE]. Quality VTE Deep Vein Thrombosis/Pulmonary Embolism Present on Admission: No
[2025-03-04 08:00] VITALS: BP 147/77; PULSE 87; RESP 16; TEMP 35.9; O2SAT 98
[2025-03-04] MEDS: ENOXAPARIN 40 MG/0.4 ML SYRINGE SUBCUT (08:27)
[2025-03-04] MEDS: DOCUSATE 100 MG CAPSULE PO ×2 (08:27→21:23)
[2025-03-04] MEDS: INSULIN LISPRO 100 UNIT/ML 3ML VIAL SUBCUT ×6 (08:29→17:05)
--- NOTE | 2025-03-04 09:00 | PC.NURSE ---
Pt has a new area that is red and purple to his r.hip area. Skin is not open and not blanchable, will be turning patient or having him turn every two hours. He is here with an infected r.foot and foot ulcers with necrotic tissue. He states that Dr. Julian came in yesterday and debrided area's and changed the dressing. Pt will also get a dressing change later today. He ate well at breakfast and is resting comfortably. Denies any pain and blood sugar 177. Insulin given.
--- NOTE | 2025-03-04 11:09 | CM.DPC ---
Addendum entered by POPEYE Nesbitt 03/04/25 11:28: ADD: Per [facility], [facility] take [facility] but on a case by case basis and would need review. CHARO secure emailed initial SNF referral with RN notes and MAR to review knowing will need to send updated post surg Wed after PT/OT. [facility] but currently short on beds so would depend on their availability with open beds closer to discharge. Did not send referral yet to review. BF Original Note: DCP Cont: Per MD and Ortho, pt's foot dressing changes made and debrided this weekend with plan still of Right BKA 03/06/25 after IV abx and cellulitis improved and Ortho Surgeon available to perform the surgical intervention. Per RN, pt tolerating diet and doing position changes every 2 hours to reduce the risk of skin breakdown. CHARO sent email to [facility] to inquire if they accept [facility] in case SNF needed after BKA on Tue. Plan: SW to follow closely for post BKA to determine return home with roommate and maybe Dtr assist vs SNF if his [facility] insurance accepted. POPEYE Nesbitt
--- NOTE | 2025-03-04 11:34 | DI.ECHO.S_ITS ---
[facility]+ [facility] : : [address] : : [place] : : [id number] : : Phone: [phone] Echocardiogram Report + + :Name: ALEXANDER FORD Study Date: 03/04/2025 Height: 72 in : :Hospital ReadingLocation: Weight: 175 lb : : Gender: Male BSA: 2.0 m2 : :: 1965 Age: 59 yrs BP: 169/84 mmHg: :Reason For Study: CHF : :Ordering Physician: AMY, : :ALISON Raymundo Performed By: Ilia Colin : :Referring: ALISON REYES : + + Interpretation Summary The study quality was technically difficult. Mild concentric left ventricular hypertrophy with ejection fraction 35%. There is moderate global hypokinesis of the left ventricle. The left atrium is moderately dilated. There is mild to moderate mitral annular calcification. Comparison is made with the echocardiogram of 09/30/2016, LV function has worsen significantly. Procedure: A two-dimensional transthoracic echocardiogram with color flow and Doppler was performed. The study quality was technically difficult. Comparison is made with the echocardiogram of 09/30/2016. A contrast injection of Definity was performed to improve assessment of LV function. The patient was in normal sinus rhythm during the exam. Left Ventricle: The left ventricle is normal in size. There is mild concentric left ventricular hypertrophy. There is no thrombus. Left ventricular ejection fraction is estimated to be 35%. There is moderate global hypokinesis of the left ventricle. Right Ventricle: The right ventricle is normal in size and function. Atria: The left atrium is moderately dilated. The right atrium is normal in size. There is no Doppler evidence for an interatrial shunt. Mitral Valve: There is mild to moderate mitral annular calcification. The mitral valve leaflets appear mildly thickened, but open well. There is no mitral valve stenosis. There is trace mitral regurgitation. Aortic Valve: The aortic valve is trileaflet. The aortic valve opens well. There is no aortic valve stenosis. No aortic regurgitation is present. Tricuspid Valve: The tricuspid valve leaflets are thin and pliable. Pulmonary artery pressures cannot be estimated because of the lack of a measurable TR jet velocity but the IVC suggests a CVP of around 3 mmHg. There is trace tricuspid regurgitation. Pulmonic Valve: The pulmonic valve is not well seen, but is grossly normal. There is a trace or physiologic amount of pulmonic regurgitation. Great Vessels: The aortic root is normal size. The ascending aorta is normal in size. The aortic arch could not be visualized. The IVC is of normal diameter and collapses greater than 50% with a sniff. This suggests a low right atrial pressure of 3 mm Hg. Pericardium/ Pleura There is no pericardial effusion. MMode/2D Measurements & Calculations LVIDd: 5.3 cm LA A2 area: 26.3 cm2 LVIDs: 4.1 cm LA A4 area: 23.8 cm2 FS: 22.5 % LA length (vol): 5.9 cm IVSd: 1.2 cm LA vol: 90.3 ml LVPWd: 1.2 cm LA vol index: 44.9 ml/m2 LV torrez. diameter/BSA (cm/m^2): 2.6 LV sys. diameter/BSA (cm/m^2): 2.1 RA long axis: 5.3 cm RVD1 (basal): 2.8 cm RA area: 13.6 cm2 RVD2 (mid): 2.4 cm RA vol: 29.5 ml TAPSE: 1.9 cm RA : 14.6 ml/m2 IVC diam: 1.4 cm Doppler Measurements & Calculations Ao V2 max: 99.3 cm/sec LVOT Max Albin: 64.5 cm/sec Ao V2 mean: 69.7 cm/sec LV V1 max P.7 mmHg Ao max P.9 mmHg LV V1 VTI: 13.6 cm Ao mean P.2 mmHg sev ratio: 0.72 Ao V2 VTI: 18.9 cm MV E max albin: 41.5 cm/sec PA V2 max: 73.9 cm/sec MV A max albin: 95.5 cm/sec PA V2 mean: 55.2 cm/sec MV E/A: 0.43 PA mean P.3 mmHg Med Peak E' Albin: 4.2 cm/sec PA pr(Accel): 37.9 mmHg E/E' med: 9.9 Lat Peak E' Albin: 5.8 cm/sec E/E' lat: 7.1 E/e' average: 8.5 MV dec time: 0.13 sec Electronically signed by: Sybil Mukherjee on Reading Physician:03/04/2025 02:59 PM
[2025-03-04 12:00] VITALS: BP 169/84; PULSE 81; RESP 14; TEMP 35.8; O2SAT 98
[2025-03-04] MEDS: SODIUM CHLORIDE 0.9% FLUSH 10 ML IV ×2 (12:24→21:29)
--- NOTE | 2025-03-04 15:48 | CM.DPNOTE ---
KARLEE Partida at [facility] accepts patient pending auth from [facility] [employer]. In addition- patient needs to be told that there is no smoking or drug use of any kind. Suboxone can be easily managed at [facility]. CM team following clinical course closely. ELIZABETH
[2025-03-04 16:00] VITALS: BP 136/92; PULSE 77; RESP 15; TEMP 35.7; O2SAT 96
[2025-03-04] MEDS: SODIUM HYPOCHLORITE 473 ML SOLUTION 200 ML TOP (18:41)
[2025-03-04] MEDS: cefTRIAXone 2,000 MG in SODIUM CHLORIDE 0.9% 100 ML 200 MG IV (21:23)
[2025-03-04] MEDS: INSULIN GLARGINE 100 UNIT/ML 3ML PEN 20 UNIT SUBCUT (21:28)
[2025-03-04 21:32] VITALS: BP 132/74; PULSE 87; RESP 16; TEMP 36; O2SAT 96
[2025-03-05] VITALS (8 sets, daily range): BP systolic 113–160; BP diastolic 66–80; PULSE 78–104; RESP 16–18; TEMP 35.7–36; O2SAT 93–99
[2025-03-05] MEDS: BUPRENORPHINE/NALOXONE 8MG/2MG 1 TAB SL ×2 (03:33→16:19)
--- NOTE | 2025-03-05 07:24 | P.PN_ITS ---
Subjective Subjective Date Patient Seen: 03/05/25 Time Patient Seen: 07:24 Interval history: Right lower extremity cellulitis osteomyelitis severe previous drill vascular disease gangrene uncontrolled diabetes --patient resting in bed. Pain controlled. Has been getting Dakin's dressing changes. Patient is aware of plan for below-knee amputation tomorrow. Continues to take Suboxone. Apparently had an echocardiogram yesterday EF 35% Exam Vital Signs (past 8 hours): - 03/05/25 01:28 03/05/25 05:26 Temperature 96.3 F L 96.3 F L Pulse Rate 87 104 H Respiratory Rate 16 16 Blood Pressure 118/66 117/75 Pulse Oximetry 93 96 Oxygen Delivery Method Room Air Oxygen Flow Rate 0 Narrative Exam Narrative: Alert and oriented no acute distress Right lower Kam[place] with full-thickness ulceration 1st MTP joint with purulence and malodor. Additional ulcerations several along the medial arch and at the heel. With deep palpation there is fluctuance and some purulence expressed from the deep arch ulcer. There were no palpable pulses. Cellulitis up on the ibrahim has improved they are still very dry like an ice skin. But good skin around area of planned BKA stump. Knee is benign. Area of poor skin at the ibrahim starts approximately 10 cm below the tibial tubercle which would be at the distal edge of the stump. Again the cellulitis in the area has improved over the course of his IV antibiotics. Objective Labs 02/28/25 06:35 02/28/25 06:35 [facility] Medical History Smoking addiction Diabetes CHF (congestive heart failure) Social History details: Ambulates with a prosthetic for a below-knee amputation on the left household members: other Smoking Status: Current every day smoker alcohol intake: never Assessment & Plan Assessment and plan (1) Peripheral vascular disease of lower extremity with ulceration: Status: Acute (2) Osteomyelitis: Qualifiers: Laterality: right Osteomyelitis location: foot Osteomyelitis type: c hronic, with draining sinus Qualified Code(s): M86.471 - Chronic osteomyelitis with draining sinus, right ankle and foot Status: Acute (3) Diabetic foot ulcer: Qualifiers: Diabetes mellitus type: type 2 Diabetic foot ulcer location: u nspecified part of foot Laterality: right Non-pressure ulcer stage: with necrosis of bone Qualified Code(s): E11.621 - Type 2 diabetes mellitus with foot ulcer; L97.514 - Non-pressure chronic ulcer of other part of right foot with necrosis of bone Status: Acute Plan Multiple right diabetic foot ulcers with osteomyelitis and gangrene and severe peripheral vascular disease. Consultations with vascular surgery have stated no vascular intervention indicated that would allow limb salvage. Patient was indicated for below-knee amputation. With the ulcerations and purulence into the arch and at the heel he has a nonsalvageable extremity. Below-knee amputation would give him the best chance for healing and reduced additional surgeries and hospitalization. Plan for this tomorrow. Patient was on chronic Suboxone may need additional assistance from anesthesia regarding pain control. Had a new echo yesterday with EF 35% apparently had 1 previously with 40% so does not appear to be significantly changed. We will make anesthesia aware. Continue IV antibiotics until after surgery. His dressing was changed today using Dakin's. I inspected the wound myself. I had a thorough discussion with the patient regarding the surgical decision-making for below-knee amputation. We discussed this would provide mobility challenges. Discussed potentially in the future there are ways to use hand controls for driving and we will provide some information from the amputee coalition. The patient is aware of postoperative plans after below-knee amputation he has had a below-knee amputation on the left side there is a period of incision healing and then stump protection and shrinkage before prosthetic fitting. It was a very important the patient establish with a primary care personnel outpatient so that he can maintain diabetic control do aid with stump healing and reduce the risk of recurrent wounds were need for more proximal amputation. Time-Based Coding :: [TOTAL MINUTES] spent with patient and on the chart (including review of chart, obtaining history, exam, reviewing outside data, placing orders, documenting exam and treatment plan, and counseling patient) on [DATE]. Quality VTE Deep Vein Thrombosis/Pulmonary Embolism Present on Admission: No
--- NOTE | 2025-03-05 07:37 | P.PN_ITS ---
Subjective Subjective Interval history: S: Doing well, no pain. Slept well, good appetite. Orthopedics met with him and reiterated plan for right BKA tomorrow, February 04. Exam Vital Signs (past 8 hours): - 03/05/25 01:28 03/05/25 05:26 Temperature 96.3 F L 96.3 F L Pulse Rate 87 104 H Respiratory Rate 16 16 Blood Pressure 118/66 117/75 Pulse Oximetry 93 96 Oxygen Delivery Method Room Air Oxygen Flow Rate 0 Narrative Exam Narrative: NAD, alert and oriented. Fluent speech. Lungs are clear, normal rate and effort. Heart is regular, no murmur gallop or rub. Abdomen is soft, non distended. Extremities: Left BKA and right leg wrapped. Objective Imaging Echo: Radiologist's impression: The study quality was technically difficult. Mild concentric left ventricular hypertrophy with ejection fraction 35%. There is moderate global hypokinesis of the left ventricle. The left atrium is moderately dilated. There is mild to moderate mitral annular calcification. Comparison is made with the echocardiogram of 09/30/2016, LV function has worsen significantly. Labs 02/28/25 06:35 02/28/25 06:35 [facility] Medical History Smoking addiction Diabetes CHF (congestive heart failure) Social History details: Ambulates with a prosthetic for a below-knee amputation on the left household members: other Smoking Status: Current every day smoker alcohol intake: never Assessment & Plan Assessment & Plan narrative: 1. Infected Right 1st metatarsal diabetic ulcer with osteomyelitis, present on admission and active. - Culturing Klebsiella oxytoca and Group g streptococcus - Stopped Cefepime, Vancomycin on 03/01, and continue with IV Ceftriaxone 2g IV q24hr - Plan right BKA. Orthopedic follow-up and management appreciated. 2. Severe PAD/chronic tobacco use/diabetic microvascular disease, present on admission and stable. - Not a candidate for vascular intervention per vascular surgery consultation x 2 - Plan right BKA 3. Diabetes mellitus, type 2 / non-compliance with metformin, present on admission and stable. - increased to 20 U lantus daily on 03/01 and continue 5 U TID AC, will hold home oral agents at this time. - poor long-term control A1C 10.7 %, currently well-controlled 4. Tobacco use disorder, present on admission and stable. - nicotine replacement. 5. Continuous opiate dependence, present on admission and stable. - continue Suboxone home regimen. 6. Chronic systolic heart failure with repeat echo revealed an EF of 35% and no wall motion abnormalities. This is chronic and stable. PLAN: -Continue current antibiotics. -initiate low-dose beta blockade with Coreg 3.125 b.i.d.. We will continue postoperatively and indefinitely. We will add an CATARINA inhibitor after surgery. -NPO midnight with BKA scheduled for tomorrow. -continue glucose control and Nicoderm. Code: Full, surrogate is patient's daughter DVT: Lovenox Time-Based Coding :: [TOTAL MINUTES] spent with patient and on the chart (including review of chart, obtaining history, exam, reviewing outside data, placing orders, documenting exam and treatment plan, and counseling patient) on [DATE]. Quality VTE Deep Vein Thrombosis/Pulmonary Embolism Present on Admission: No
[2025-03-05] MEDS: INSULIN LISPRO 100 UNIT/ML 3ML VIAL SUBCUT ×5 (08:39→17:48)
[2025-03-05] MEDS: ENOXAPARIN 40 MG/0.4 ML SYRINGE SUBCUT (09:12)
[2025-03-05] MEDS: NICOTINE 21 MG PATCH TOP (09:14)
[2025-03-05] MEDS: DOCUSATE 100 MG CAPSULE PO (09:14)
--- NOTE | 2025-03-05 09:55 | PC.NURSE ---
Patient pressure injury to r.side of hip/buttocks remains purple and red. Patient is sitting on a waffle cushion in the chair and he has been turning pretty regularly in the bed. He is thin and frail and has bony prominences that are fragile areas. Please see wound photos under Notes. Blood sugar 148, given insulin and patient ate well at breakfast. His dressing was changed by Dr. Acevedo this morning and he will be going for amputation of that r.leg tomorrow.
--- NOTE | 2025-03-05 10:15 | PC.NURSE ---
Addendum entered by Brunilda Fernandes R.N. 03/10/25 14:23: Late Entry:03/10/25: Note below charted under the wrong patient, will be fixed and placed under patient it was meant for. Brenda Fernandes RN. Addendum entered by POPEYE Larson 03/07/25 10:34: It is very likely this note was meant for another patient's chart. Information listed in this note does not match patient Cy Buchanan 1965's presentation. Original Note: Patient is confused this morning. he is focused on heart burn, and acid reflux. Dr. Garcia into see patient and ordered some protonix and for his quiñones catheter to be d/cd. He is able to move in bed, his bottom is pink but blanchable and not open. Dressing to ML has a medium amount of drainage outlined in black ink. 4 lapsite incisions all covered with allevyn. BS with some wheezes, patient has intersitial lung disease, pulmonary fibrosis, and COPD. He has had a cough for the last couple of weeks. He is pleasant and cooperative with care, resting comfortably and will be here soon to visit.
--- NOTE | 2025-03-05 10:20 | CM.DPC ---
DCP Cont: SW met bedside with pt and he confirms he is aware of plan for surgery BKA tomorrow 03/[address] Acevedo and updated him that [facility] is contracted with his insurance and can accept pending insurance auth if SNF needed at d/c. SW updated that [facility] not contracted and [facility] is contracted but might be full. Pt appreciative of the information and confirms he is still hopeful for d/c home at discharge with assist from his friend/roommate but aware SNF might be needed pending his progress as he will be a bilateral BKA now. Plan: SW to follow closely for PT/OT post BKA tomorrow 03/06 to determine [facility] SNF vs home. If SNF, [facility] needed. POPEYE Nesbitt
[2025-03-05] MEDS: carvediloL 3.125 MG TABLET PO ×2 (10:34→20:08)
[2025-03-05] MEDS: SODIUM CHLORIDE 0.9% FLUSH 10 ML IV ×2 (10:35→20:21)
[2025-03-05] MEDS: SODIUM HYPOCHLORITE 473 ML SOLUTION 200 ML TOP (17:44)
[2025-03-05] MEDS: INSULIN GLARGINE 100 UNIT/ML 3ML PEN 20 UNIT SUBCUT (20:16)
[2025-03-05] MEDS: cefTRIAXone 2,000 MG in SODIUM CHLORIDE 0.9% 100 ML 200 MG IV (21:34)
[2025-03-06] VITALS (18 sets, daily range): BP systolic 111–180; BP diastolic 61–95; PULSE 69–94; RESP 8–18; TEMP 35.8–36.4; O2SAT 93–98; BMI 22.4
--- NOTE | 2025-03-06 | PATH_ITS ---
[facility] Accession Number: [id number] No. of containers..01 Tissue . 01 Material submitted: . limb - RIGHT LOWER EXTREMITY AMPUTATED BELOW THE KNEE . 01 Diagnosis: RIGHT LOWER EXTREMITY, AMPUTATION: Right lower leg and foot with multiple ulcers and underlying acute osteomyelitis. Surgical margins appear viable. [facility] 03/14/2025 1534 Local . 01 Electronically signed: . Carol Vega DO, Pathologist NPI- [id number] . 01 Gross description: . Received packaged in biohazard bags with two identifiers and right lower extremity, is a right below the knee amputation measuring 24.5 cm from the medial malleolus to the most proximal soft tissue margin. The 28.5 cm long foot demonstrates five intact toes with elongated, discolored, and thickened nails. A blackened, ulceration is identified on the distal medial aspect of the first metatarsal extending from the dorsal to the plantar side of the foot and measuring 7.8 x 4.5 cm. Exposed soft tissue is identified at the base of the lesion. Three smaller additional ulcerated lesions ranging from 0.7 x 0.7 cm to 2.0 x 1.9 cm are located on the plantar aspect of the proximal arch of the foot. The remaining skin is diffusely crusted with scab-like lesions located on the anterior ibrahim and lateral aspect of the foot ranging in size from 0.8 x 0.7 cm to 6.5 x 4.4 cm. No additional lesions are identified. Dissecting out the anterior tibial neurovascular bundle reveals patient lumen with a small amount of possible occlusion of less than 20%. . [employer] sections are submitted as follows: A1: Rep soft tissue margin. A2: Rep bone margins. A3: Soft tissue of largest ulcerated lesion. A4: Largest lesion with underlying bone. A5: Additional equal opportunity representative lesions. A6: Cross-section of neurovascular bundle. . Bone decalcified. ([id number]) /MRV 03/07/2025 1817 Local . 01 Pathologist provided ICD-10: M86.171 . 01 CPT . 778236, [id number] Performed at: [address] [id number] MD Raleigh Garcia MD Phone: [phone]
[2025-03-06] MEDS: BUPRENORPHINE/NALOXONE 8MG/2MG 1 TAB SL (03:45)
--- NOTE | 2025-03-06 07:28 | P.PN_ITS ---
Subjective Subjective Interval history: Summary: This is a 59 M with PMH of DM2, HTN, CHFpEF (EF 42% 09/2023), PAD, prior L BKA (09/2023), opiate use disorder on suboxone who presents for worsening ulceration of his R lower leg for the last severeal months. Orthopedic provider currently plan for BKA next week on 03/06. 03/01: The patient has no new complaints. Blood sugars are in the 200-300 range. 03/02: No new issues. He has no complaints. Blood sugars in the 170s to 200 range. 03/03: No new complaints. Right leg wound cleaned by Orthopedics yesterday. Blood sugars in the 140s to 150s range. 03/04-: Stable, on IV antibiotics, awaiting BKA. S: Doing well, no complaints. He was scheduled to go to the operating room at around 3:00 p.m.. He has no other concerns. He continues on IV antibiotics. Exam Vital Signs (past 8 hours): - 03/06/25 01:00 03/06/25 06:00 Temperature 96.4 F L 97.4 F L Pulse Rate 74 90 Respiratory Rate 18 18 Blood Pressure 133/70 130/68 Pulse Oximetry 94 93 Oxygen Flow Rate 0 Oxygen Delivery Method Room Air Oxygen Flow Rate 0 Narrative Exam Narrative: NAD, alert and oriented. Fluent speech. Lungs are clear, normal rate and effort. Heart is regular, no murmur gallop or rub. Abdomen is soft, non distended. Extremities: Left BKA and right leg wrapped. Malodorous. Objective ECG Impression: 02/26/2025: Sinus rhythm with 1st degree AV block at 90bpm Nonspecific T wave abnormality Prolonged QTc 486msec Imaging Multiple studies: : Radiologist's impression: 1. Chest xray 02/26/2025: No acute cardiopulmonary abnormality is seen. 2. Right foot xray 02/26/2025: Osteomyelitis of the 1st metatarsal head/neck with intra-articular extension at the MTP joint. 3. Arterial doppler US 02/26/2025: Multifocal areas of high-grade 50-99% stenosis throughout the right lower extremity arterial vasculature. 4. Foot MRI 02/27/2025: 1. Full-thickness ulceration involving plantar aspect of 1st MTP joint with extensive midfoot and forefoot soft tissue cellulitis. No discrete drainable abscess collection. 2. Finding is consistent with osteomyelitis involving 1st metatarsal bone and 1st proximal phalanx as well as medial and lateral sesamoids of 1st metatarsal head with extensive marrow edema and bony erosive changes. Heterogeneous contrast enhancement in the area of edema is seen. 3. No other area of abnormal marrow signal. Susceptibility artifacts are noted in plantar aspect of 3rd toe. No other area of abnormal intraosseous enhancement. 4. No gross full-thickness extensor or flexor tendon rupture. No gross plantar foot muscle signal abnormalities. No enhancing soft tissue mass. 5. Lower extremity CTA 02/27/2025: 1. Severe high-grade stenosis of the bilateral superficial femoral and profunda femoris arteries, with patent but poor opacification of the right lower extremity triple-vessel runoff. The CTA is concordant with the right lower extremity arterial Doppler ultrasound findings. 2. 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 3. Right foot 1st ray osteomyelitis with likely superimposed cellulitis. 4. Cholelithiasis. Labs 02/28/25 06:35 02/28/25 06:35 [facility] Medical History Smoking addiction Diabetes CHF (congestive heart failure) Social History details: Ambulates with a prosthetic for a below-knee amputation on the left household members: other Smoking Status: Current every day smoker alcohol intake: never Assessment & Plan Assessment & Plan narrative: 1. Infected Right 1st metatarsal diabetic ulcer with osteomyelitis, present on admission and active. - Culturing Klebsiella oxytoca and Group g streptococcus - Stopped Cefepime, Vancomycin on 03/01, and continue with IV Ceftriaxone 2g IV q24hr - Plan right BKA 03/06. 2. Severe PAD/chronic tobacco use/diabetic microvascular disease, present on admission and stable. - Not a candidate for vascular intervention per vascular surgery consultation x 2 - Plan right BKA 3. Diabetes mellitus, type 2 / non-compliance with metformin, present on admission and stable. - increased to 20 U lantus daily on 03/01 and continue 5 U TID AC, will hold home oral agents at this time. - poor long-term control A1C 10.7 %, currently well-controlled 4. Tobacco use disorder, present on admission and stable. - nicotine replacement. 5. Continuous opiate dependence, present on admission and stable. - continue Suboxone home regimen. 6. Chronic systolic heart failure with repeat echo revealed an EF of 35% and no wall motion abnormalities. This is chronic and stable. PLAN: -Continue current antibiotics. -initiate low-dose beta blockade with Coreg 3.125 b.i.d.. We will continue postoperatively and indefinitely. We will add an CATARINA inhibitor after surgery. -BKA today at 15:00. -continue glucose control and Nicoderm. Code: Full, surrogate is patient's daughter DVT: Lovenox Time-Based Coding :: [TOTAL MINUTES] spent with patient and on the chart (including review of chart, obtaining history, exam, reviewing outside data, placing orders, documenting exam and treatment plan, and counseling patient) on [DATE]. Quality VTE Deep Vein Thrombosis/Pulmonary Embolism Present on Admission: No
--- NOTE | 2025-03-06 07:50 | PM.PREOP ---
Pre-operative Note Interval Note History & Physical reviewed/Exam performed by Physician: Yes Changes to H&P: No
[2025-03-06] MEDS: INSULIN LISPRO 100 UNIT/ML 3ML VIAL SUBCUT ×2 (08:07)
[2025-03-06] MEDS: carvediloL 3.125 MG TABLET PO ×2 (08:08→21:54)
[2025-03-06] MEDS: SODIUM CHLORIDE 0.9% 1,000 ML 100 ML IV (08:08)
[2025-03-06] MEDS: NICOTINE 21 MG PATCH TOP (08:08)
[2025-03-06] MEDS: SODIUM CHLORIDE 0.9% FLUSH 10 ML IV ×2 (08:10→21:56)
--- NOTE | 2025-03-06 15:45 | SUR.HOLD ---
Right radial arterial line placed by Benjamin Orlando, DO at bedside. Pt connected to bedside tele monitor. VSS on 2L NC. Once a-line placed, transducer set at phlebostatic axis, zeroed per policy, good waveform.
[2025-03-06] MEDS: LACTATED RINGERS 1,000 ML 42 ML IV (16:00)
--- NOTE | 2025-03-06 16:14 | P.OP_ITS ---
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 He had a previous left below-knee amputation for gangrene at an outside hospital several years ago. He presented with osteomyelitis cellulitis and gangrene of the right foot. States he has not taken his diabetic medication 6 months or a year and has not seen a primary care doctor. He came to the emergency room when he saw maggots on his right foot. Previous to this he drove with the right leg and ambulated with a prosthetic on the left. He had IV antibiotics for his cellulitis up to his mid ibrahim he had a CTA and arterial Doppler and vascular consultations that demonstrated no intervention indicated to help with limb salvage. He had ulcers with purulence at the 1st metatarsal phalangeal joint, arch and heel and was diagnosed with a nonsalvageable limb. He was indicated for below-knee amputation. The risks benefits and alternatives to this procedure were thoroughly explained to the patient. The risks and benefits of the procedure have been discussed with the patient and given the opportunity to ask questions. The risks of surgery include but are not limited to infection, phantom limb pain, wound healing problems, need for additional procedures or more proximally amputation, persistence of pain, damage to nerves and blood vessels, , DVT, PE, cardiopulmonary complications and . The patient expressed a thorough understanding of the risks and benefits of surgery and has elected to proceed. Consent was signed. We further discussed the importance of diabetic glycemic control for wound healing prevention of additional problems. We discussed the importance of smoking cessation. We also discussed possible amputee modifications or hand controls and additional time that were required for stump healing prosthetic fitting and other recovery protocol discussion. Surgeon: Joi Acevedo Click Yes if Unassisted: Yes Anesthesia Type: Spinal and Local Operative Notes Findings: Right foot gangrene osteomyelitis open wounds, malodor and purulence at 1st MTP, arch and heel ulcerations. Cellulitis to the level of the ankle somewhat improved from mid ibrahim after several days of IV antibiotics. Distal have dry skin over the anterior ankle and foot and a area of scabbing mid ibrahim just distal to the area of the planned stump. preop knee flexion contracture about 10 degrees Closure Type: primary Specimen(s): other (Amputated extremity sent for pathology) Estimated Blood Loss (mL): 75 Blood products transfused: none Tourniquet time (min): 54 Procedure in detail: Patient was seen in the preoperative area the site of surgery was marked and informed consent confirmed this was the right lower extremity. The patient was brought to the operating room by the anesthesia team and spinal anesthesia was administered. The patient was prepped and draped in standard sterile fashion formal time-out procedure was performed confirming the patient's side and site of surgery administration of appropriate antibiotic. The patient was on scheduled IV antibiotics. The right lower extremity was exposed and marked. And a well-padded nonsterile thigh tourniquet was applied previous to draping. Attention was turned to the right lower extremity gravity exsanguination was utilized and then the tourniquet raised on the thigh to 250 mmHg. The planned flaps were drawn out a level a little over a hand's breath below the tibial tubercle was marked on the anterior ibrahim then the a to P diameter of the leg was measured at this level and the medial and lateral flaps were taken to this measurement +1 cm and marked out on the skin. Next the skin incision was made and a decisive fashion through the skin subcutaneous tissue and muscle to the level of the anterior tibia next the medial and lateral flaps were incised through the skin and the posterior connecting flaps drawn out. Dissection was started. Medially the saphenous nerve and vein were isolated. The nerve was transected pulled distally and allowed to retract and was cut. The vein was ligated. The anterior tibia was exposed and the periosteal elevator used to expose the tibia. The Pride elevator was used to dissect posterior to the tibia and then the oscillating saw was used to transect the tibial bone using cooling. Next the Pride was used to identify the fibula laterally and this was transected shorter than the tibia. Next the bone hook was utilized to bend the leg up and then the amputation knife was used to remove the bone just anterior to the posterior deep fascia distally the transection was completed with a scalpel. The amputated part was then taken to the back table and sent to pathology. Next the oscillating saw was used to finish fashioning the bone at a 45 degree angle from medullary canal the anterior prominence of the tibia was smoothed with the oscillating saw to make sure there were no rough edges. Same procedure was performed on the fibula. Anterior neurovascular bundle was identified the deep peroneal nerve was isolated dissected free and cut and allowed to retract. Then the anterior tibial artery and vein were double ligated 1st with a stick tie then a suture ligation. 2-0 silk Then the deep compartment muscles were dissected off of the posterior flap. The deep posterior tibial artery and vein and the tibial nerve were isolated off the back of the posterior musculature these were then identified. Posterior musculature from the posterior compartment was excised. The posterior neurovascular bundle including the posterior tibial artery and vein were double ligated. The tibial nerve was dissected free from this and allowed to be cut and retract proximally. Then attention was turned to the lateral compartment musculature the remainder of the this was excised. The superficial peroneal nerve was identified dissected cut and allowed to retract proximally. The peroneal vasculature was ligated. The posterior flap perforating vessels were identified and cauterized or ligated with 2-0 Vicryl. The sural nerve was identified cut and allowed to retract proximally, small saphenous vein was ligated with a 2-0 Vicryl. The flap was fashioned and plann ed. Excess Achilles was excised. A medium Hemovac drain was placed from the lateral just above the fibula out exiting proximal and lateral. Then the tourniquet was released and hemostasis was achieved. Next the posterior flap was fashioned this was brought anterior to the tibia periosteum and sutured in place with 1. Vicryl. This was carried out medially and laterally. Next 2-0 Vicryl were used in the subcutaneous tissue followed by 4-0 Monocryl as we work to the edges of the dog ears these were cut and removed. Skin was closed with 3-0 nylon suture. Wound came together nicely. Sterile dressing was placed with Xeroform gauze fluffs Webril a posterior splint around the stump with medial and lateral slats was placed for protection of the stump. Complications: none Post-operative Condition: stable Disposition: PACU Plan for aftercare: Nonweightbearing on the right lower extremity. Hemovac drain will stay in place 2 days or until output less than 30 a shift. We will stay in splint and dressing until follow up in Orthopedic Clinic in 3-4 weeks then we will be transitioned to a stump lockstitch binder with prosthetics. Follow up with Dr. Acevedo in Orthopedic Clinic in 3-4 weeks. We will use gabapentin and Dilaudid for pain management in addition to the patient's baseline Suboxone. Gabapentin will be used with the 1st month and then wean as tolerated to help treat and or prevent phantom pain.
[2025-03-06] MEDS: ACETAMINOPHEN IV 1,000 MG/100 ML VIAL 400 MG IV (16:42)
--- NOTE | 2025-03-06 16:57 | SUR.OPER ---
Supine on padded OR bed, head on pillow, arms secured on padded arm boards at <90 degrees abduction, legs uncrossed, safety belt across torso, tape over blanket over non operative leg. Left lower thigh placed on pillow. All pressure points padded.
--- NOTE | 2025-03-06 17:38 | SUR.OPER ---
Pre op skin assessment - multiple wounds to right lower extremity, redness and weeping in groin. Would on sacrum/buttock also noted.
[2025-03-06] MEDS: BUPIVACAINE 0.25% W/ EPI 30 ML VIAL INJ (18:43)
[2025-03-06] MEDS: OXYCODONE IR 5 MG TABLET PO ×2 (19:54→20:21)
[2025-03-06] MEDS: hydrOXYzine HCL 25 MG TABLET 50 MG PO (19:56)
[2025-03-06] MEDS: cefTRIAXone 2,000 MG in SODIUM CHLORIDE 0.9% 100 ML 200 MG IV (21:54)
[2025-03-06] MEDS: GABAPENTIN 300 MG CAPSULE PO (21:55)
[2025-03-06] MEDS: LACTATED RINGERS 1,000 ML 100 ML IV (21:55)
[2025-03-06] MEDS: HYDROMORPHONE 2 MG TABLET PO (21:57)
[2025-03-07] VITALS: BP 121/51; PULSE 69; O2SAT 96
[2025-03-07 04:00] VITALS: BP 136/82; PULSE 96; RESP 18; TEMP 36.4; O2SAT 97
[2025-03-07] MEDS: BUPRENORPHINE/NALOXONE 8MG/2MG 1 TAB SL ×2 (04:00→16:07)
[2025-03-07 06:13] LABS: BUN Creatinine Ratio 25.4 (6-22); Blood Urea Nitrogen 15 mg/dL (9-20); Calcium 8.4 mg/dL (8.4-10.2); Carbon Dioxide 28 mmol/L (22-32); Chloride 103 mmol/L (98-107); Estimated Glomerular Filt Rate > 60 mL/min (>60); Glucose 166 mg/dL (70-99); HEMOLYSIS < 15 (0-50); Potassium 4.5 mmol/L (3.4-5.1); Sodium 135 mmol/L (137-145)
[2025-03-07 06:16] LABS: Add Manual Diff / Slide Review NO; Basophils Absolute Auto 100 /uL (0-100); Eosinophils Absolute Auto 300 /uL (0-450); Eosinophils Percent Auto 2.4 % (2-4); Hematocrit 35.5 % (41-53); Lymphocytes Absolute Auto 1600 /uL (1100-4500); Lymphocytes Percent Auto 14.5 % (25-40); Mean Corpuscular HGB Conc 33.8 % (30-36); Mean Corpuscular Hemoglobin 26.3 PG (26-34); Monocytes Absolute Auto 1100 /uL (0-900); Monocytes Percent Auto 9.6 % (3-14); Neutrophils Absolute Auto 8100 /uL (1500-7000); Neutrophils Percent Auto 72.5 % (50-75); Platelet Count 278 X10^3/uL (150-400); Red Blood Cell Count 4.56 X10^6/uL (4.5-5.9); Red Cell Distribution Width 14.7 % (11.6-14.8); White Blood Cell Count 11.1 X10^3/uL (4.5-11.0)
--- NOTE | 2025-03-07 07:47 | PM.PNPO.1 ---
Subjective Subjective Interval history: Minimal pain overnight, he would like to mobilize out of bed Exam Vital Signs (past 8 hours): - 03/07/25 00:00 03/07/25 04:00 Temperature 97.5 F L Pulse Rate 69 96 H Respiratory Rate 18 Blood Pressure 121/51 L 136/82 Pulse Oximetry 96 97 Oxygen Flow Rate 0 0 Oxygen Delivery Method Room Air Oxygen Flow Rate 0 Narrative Exam Narrative: Dressing intact and dry, adequate pain control, minimal drainage Objective Labs 03/07/25 05:40 03/07/25 05:40 Labs: Laboratory Results - last 24 hr 03/07/25 05:40 WBC 11.1 H RBC 4.56 Hgb 12.0 L Hct 35.5 L MCV 78.0 L MCH 26.3 MCHC 33.8 RDW 14.7 Plt Count 278 Neut % (Auto) 72.5 Lymph % (Auto) 14.5 L [place] % (Auto) 9.6 Eos % (Auto) 2.4 Baso % (Auto) 1.0 Neut # (Auto) 8100 H Lymph # (Auto) 1600 [place] # (Auto) 1100 H Eos # (Auto) 300 Baso # (Auto) 100 Sodium 135 L Potassium 4.5 Chloride 103 Carbon Dioxide 28 BUN 15 Creatinine 0.59 L Estimated GFR > 60 BUN/Creatinine Ratio 25.4 H Glucose 166 H Calcium 8.4 PFSH Medical History Smoking addiction Diabetes CHF (congestive heart failure) Social History details: Ambulates with a prosthetic for a below-knee amputation on the left household members: none Smoking Status: Current every day smoker alcohol intake: never Assessment & Plan Post-op Postoperative Procedures: Procedures Operation Date: 03/06/25 15:15 Actual Procedure Side Surgeon p Below knee amputation Right Joi Acevedo MD Postoperative day: 1 Postoperative status: doing well Postoperative plan narrative: Mobilize out of bed with physical therapy. He can use his prosthesis on the left and a walker to work on transfer training. Leave the drain in until tomorrow. Anticipate need for rehab. Quality VTE Deep Vein Thrombosis/Pulmonary Embolism Present on Admission: No
[2025-03-07] MEDS: INSULIN LISPRO 100 UNIT/ML 3ML VIAL SUBCUT ×5 (07:59→17:14)
[2025-03-07] MEDS: ENOXAPARIN 40 MG/0.4 ML SYRINGE SUBCUT (08:01)
[2025-03-07] MEDS: NICOTINE 21 MG PATCH TOP (08:01)
[2025-03-07 08:02] VITALS: BP 119/79; PULSE 95
[2025-03-07] MEDS: GABAPENTIN 300 MG CAPSULE PO ×3 (08:02→21:08)
[2025-03-07] MEDS: ACETAMINOPHEN 325 MG TABLET 650 MG PO ×2 (08:02→14:36)
[2025-03-07] MEDS: SODIUM CHLORIDE 0.9% FLUSH 10 ML IV (08:02)
[2025-03-07] MEDS: carvediloL 3.125 MG TABLET PO ×2 (08:02→21:09)
[2025-03-07] MEDS: HYDROMORPHONE 2 MG TABLET PO ×2 (08:17→14:35)
--- NOTE | 2025-03-07 10:40 | DIET.PN1 ---
Dietary Progress Note Assessment: f/u after BKA. Met with pt at bedside. Reports continued good appetite eating all of breakfast tray this morning. Ht: 187.96 cm Wt: 79 kg BMI: 25.7* (bilateral BKA- Adjusted DBW is: 75.9 kg) Last BM: 03/02/25 (03/06/25 15:51) MNA: 8 Tawanda Score: 18 Diet: 03/07/25 Breakfast Carbohydrate Consistent Diet Diet Modifications: Carbohydrate level: Medium (3 CHO) Bedtime snack: Yes Reflex DM orders: No Food Texture: Level 7 - Regular Liquid Consistency: Level 0 - Thin Labs: RBC 4.56 X10^6/uL (4.5-5.9) 03/07/25 05:40 Hgb 12.0 g/dL (13.5-17.5) L 03/07/25 05:40 Hct 35.5 % (41-53) L 03/07/25 05:40 Creatinine 0.59 mg/dL (0.66-1.25) L 03/07/25 05:40 Hemoglobin A1c 10.7 % (4.0-6.0) H 02/26/25 20:14 Lactate 1.1 mmol/L (0.7-2.1) 02/26/25 20:14 Nutrition Diagnosis: Increased nutrient needs (protein) r/t healing aeb recent BKA Interventions: -Discussed increased protein needs d/t healing and good protein food sources -1-2 extra protein based foods on tray or double serving of breakfast protein source EER: 90 g protein (1.25 g/kg of Adjusted DBW per post BKA) Monitoring/Evaluations: PO intakes Electronically Signed by: Latoya Alvares 03/07/25 10:40 Clinical Dietitian [address] [id number]
--- NOTE | 2025-03-07 11:59 | OT.IP.EVAL ---
Current Diagnoses Sepsis, unspecified organism (02/26/25) Type 2 diabetes mellitus with foot ulcer (02/26/25) Type 2 diabetes mellitus without complications (02/26/25) Nicotine dependence, unspecified, uncomplicated (02/26/25) Peripheral vascular disease, unspecified (02/26/25) Cellulitis of unspecified part of limb (02/26/25) Non-pressure chronic ulcer of other part of unspecified foot with unspecified severity (02/26/25) Non-pressure chronic ulcer of other part of right foot with necrosis of bone (02/26/25) Non-pressure chronic ulcer of unspecified part of unspecified lower leg with unspecified severity (02/26/25) Chronic osteomyelitis with draining sinus, right ankle and foot (02/26/25) Osteomyelitis, unspecified (02/26/25) Surgery Performed Operation Date: 03/06/25 15:15 Actual Procedures p Below knee amputation(Right) - Joi Acevedo MD Past Medical History CHF (congestive heart failure) Diabetes Smoking addiction Occupational Therapy Inpatient Evaluation/Re-Eval M1 PT/OT-IP Prior Functional Status Start: 03/07/25 13:53 Freq: NEEDED Status: Active Protocol: Document 03/07/25 14:35 [facility] (Rec: 03/07/25 14:57 [facility] Desktop) Medical Review Prior Functional Status Communication I Mobility and Gait Pt used left prosthesis and cane, but at times use of wc to wheel to the bathroom door. Activities of Daily Living and IADL's Pt able to do all ADL and IADL needs. Pt was able to drive prior. Social History Household Members none Living Arrangements Mobile home Home Environment Standard Height Toilet,Tub/ Shower,Ramp Home Equipment Front Wheel Walker,Manual Wheelchair,Bedside Commode,Tub Transfer Bench,Hand Held Shower,Grab Bars In Shower Additional Social History Comment Pt states has a commode over the toilet but no bucket. Pt sleep on a sectional with his dogs. M2 OT-IP Current Condition Start: 03/07/25 14:34 Freq: Status: Active Protocol: Document 03/07/25 14:35 [facility] (Rec: 03/07/25 14:57 [facility] Desktop) Occupational Therapy Current Condition Current Condition Evaluation Date 03/07/25 Treatment Diagnosis S/P R BKA Weight Bearing Status Weight Bearing Status Non-Weight Bearing Allowed Weight Bearing Amount (enter % Nwb to RLE or #) (%) M3 OT- IP Subjective and Pain Start: 03/07/25 14:34 Freq: Status: Active Protocol: Document 03/07/25 14:35 [facility] (Rec: 03/07/25 14:57 [facility] Desktop) OT- Subjective Occupational Therapy Visit Type Type Initial Evaluation Visit Start Time 11:59 Visit Stop Time 11:26 Occupational Therapy Visit Comments Patient Comments Pt agreed to get up. Patient/Caregiver Goals Pt wanting to go home. OT Pain Assessment Pain When Pain Assessed At Rest Pain Present Pain Present Pain Reported Location Right Leg Intensity 3 Scale Used Numeric (0 - 10) M4 OT- IP ADL's Start: 03/07/25 14:34 Freq: Status: Active Protocol: Document 03/07/25 14:35 [facility] (Rec: 03/07/25 14:57 [facility] Desktop) OT GPN-Fknd-Brkyiva Comments OT Self-Feeding Comments Not at meal time. OT ADL-Grooming Comments OT Grooming Comments Not performed. OT ADL-Oral Care Comments Oral Care Comments Not performed. OT ADL-Dressing General Eval Lower Body Dressing Ability Standby Assistance Areas Needing Assistance Retrieving/Set-up of Clothing Comments OT Dressing Comments Pt able to leeann/doff his left prothesis independently after set-up Pt did not have a shoe on the lef LE prothesis and asked pt to have his daughter bring in a shoe for it. Able to place non skip sock on it so able to assess his mobility for lateral scooting to the BSC .Suggested to pt, best to get dress while in bed and roll side to side for pants/brief. OT ADL-Toileting Comments OT Toileting Comments Not performed. At this time best to use drop arm BSC to scoot over to with MARIZA. OT ADL-Bathing Comments OT Bathing Comments Not at this time. M5 OT- IP IADL's Start: 03/07/25 14:34 Freq: Status: Active Protocol: Document 03/07/25 14:35 [facility] (Rec: 03/07/25 14:57 [facility] Desktop) OT-Instrumental Activities of Daily Living Home Safety Awareness Awareness of Need for Assistance at Home Good Awareness Meal Preparation Meal Preparation Comments Pt will need assist. 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 M6 OT- IP Functional Cognition Start: 03/07/25 14:34 Freq: Status: Active Protocol: Document 03/07/25 14:35 [facility] (Rec: 03/07/25 14:57 [facility] Desktop) Cognitive Factors Limiting Selfcare Function Cognitive Ability Level of Alertness Alert Patient Orientation Name,Place,Situation Attention Span Ability Capable of Focused Attention, Capable of Sustained Attention Ability to Follow Commands Able to Follow Multi-Step Commands Cognitive Comments Cognitive Assessment Comments Pt able to follow commands commands for ADL and mobility needs. OT- Vision and Hearing OT- Hearing Assessment OT- Hearing Assessment WFL M7 OT- IP Mobility and Balance Start: 03/07/25 14:34 Freq: Status: Active Protocol: Document 03/07/25 14:35 [facility] (Rec: 03/07/25 14:57 [facility] Desktop) OT- Bed Mobility Assessment Supine to Sit Supine to Sit Assist Standby Assistance Sit to Supine Sit to Supine Assist Independent OT-Transfer Assessment Sit to and From Stand Sit to and from Stand Minimal Assistance Transfers Transfer Ability Minimal Assistance Technique Transfer Technique Forward/Backward Scoot Comments Mobility Comments Pt able to scoot to the [facility] with MARIZA for safety and balance with left prothesis on . Pt also to back up to the BSC without his left prothesis if having to use the bathroom and not having his prothesis on. Suggested to have his daughter bring in a left shoe for the prothesis. OT- Balance Assessment Sitting Balance and Reactions Static Sitting Balance Ability Fair Dynamic Sitting Balance Ability Fair M8 OT- IP Objective Assessments Start: 03/07/25 14:34 Freq: Status: Active Protocol: Document 03/07/25 14:35 [facility] (Rec: 03/07/25 14:57 [facility] Desktop) OT Gross Range of Motion Upper Extremity Range of Motion Assessment Within Functional Limits OT Strength Upper Extremity Strength Assessment Within Functional Limits M9 OT- IP Assessment and Plan Start: 03/07/25 14:34 Freq: Status: Active Protocol: Document 03/07/25 14:35 [facility] (Rec: 03/07/25 14:57 [facility] Desktop) OT Summary Assessment and Plan Potential Rehabilitation Potential Good Analytic Complexity at Evaluation Moderate Summary OT Impairments Pain,Strength,Balance, Functional Mobility,Dressing, Toileting,Bathing,Toilet Transfers,Shower Transfers Progress Towards Goals Progressing Toward Goals Assessment Summary Pt MOD complexity and main barriers are pain, NWB for RLE , and decreased balance. Pt needing MARIZA to scoot for transfer to BSC at this time. Unable to try pt standing due to not have a shoe for his left prothesis. Therefore to assess transfer with [facility]WW when able to get his shoe. Pt would benefit from skilled rehab at this time. Goals Self-Feeding Goal Independent Grooming Goal Independent Dressing Goal Independent Toileting Goal Independent Bathing Goal Standby Assistance Toilet Transfer Goal Independent Shower Transfer Goal Independent Days to Meet Goals 15 Frequency of Treatment Other frequency 5x/week Treatment Plan OT Treatment Plan ADL Training,Functional Mobility,Patient/Family Education,Discharge Planning Other Treatment Recommendations and Next When able to get his left shoe Treatment Focus , transfer with [facility] to [facility] with [facility]. Discharge Recommendations OT Discharge Recommendations SNF Rehab Transportation Needs at Discharge Wheelchair/Cabulance
--- NOTE | 2025-03-07 12:27 | PT.IIE ---
Current Diagnoses Sepsis, unspecified organism (02/26/25) Type 2 diabetes mellitus with foot ulcer (02/26/25) Type 2 diabetes mellitus without complications (02/26/25) Nicotine dependence, unspecified, uncomplicated (02/26/25) Peripheral vascular disease, unspecified (02/26/25) Cellulitis of unspecified part of limb (02/26/25) Non-pressure chronic ulcer of other part of unspecified foot with unspecified severity (02/26/25) Non-pressure chronic ulcer of other part of right foot with necrosis of bone (02/26/25) Non-pressure chronic ulcer of unspecified part of unspecified lower leg with unspecified severity (02/26/25) Chronic osteomyelitis with draining sinus, right ankle and foot (02/26/25) Osteomyelitis, unspecified (02/26/25) Surgery Performed Operation Date: 03/06/25 15:15 Actual Procedures p Below knee amputation(Right) - Joi Acevedo MD Medical History CHF (congestive heart failure) Diabetes Smoking addiction Physical Therapy Inpatient Evaluation/Re-Eval M1 PT/OT-IP Prior Functional Status Start: 03/07/25 13:53 Freq: NEEDED Status: Active Protocol: Document 03/07/25 12:27 DLM (Rec: 03/07/25 14:41 DLM Desktop) Medical Review Prior Functional Status Medical History Reviewed Yes Diet/Fluid Consistency Regular Communication WFL Mobility and Gait Independent gait with left LE prosthesis and cane. He uses his wheelchair when he is not wearing prosthesis. His wheelchair does not fit in the bathroom so he has to ambulate to the toilet. He can push his wheelchair but his shoulder pain limits his distances. Activities of Daily Living and IADL's Independent with basic ADL's. He drives. His roommate/friend helps with tissue inserter. Social History Household Members none Living Arrangements Mobile home Number of Floors (Floors) One Floor Number of Stairs To Enter/Railing? ramp Home Environment Standard Height Toilet,Tub/ Shower Home Equipment Front Wheel Walker,Straight Cane,Manual Wheelchair,Bedside Commode,Tub Transfer Bench Additional Social History Comment unclear if pt has a bucket for his commode since he uses it over the toilet. He sleeps on the couch with his dogs. Owns left below knee prosthesis which is at the hospital, unfortunately he does not have a shoe to use on his prosthesis at this time M2 PT-IP Current Condition Start: 03/07/25 13:53 Freq: NEEDED Status: Active Protocol: Document 03/07/25 12:27 DLM (Rec: 03/07/25 14:41 DLM Desktop) Physical Therapy Current Condition Current Condition Evaluation Date 03/07/25 Treatment Diagnosis right BKA, impaired mobility/ gait Onset Date 03/06/25 M3 PT-IP Subjective Start: 03/07/25 13:53 Freq: NEEDED Status: Active Protocol: Document 03/07/25 12:27 DLM (Rec: 03/07/25 14:41 DLM Desktop) Subjective Physical Therapy Visit Type Type Initial Evaluation Visit Start Time 12:00 Visit Stop Time 12:27 Notes 27 min Number of PHLEBOTOMY COORDINATOR Visits 0 Co-Eval with OT for pt safety due to his high fall risk Physical Therapy Visit Comments Patient Comments He reports his Daughter should be able to bring a shoe in for his left prosthesis. Patient Goals He wants to go home Therapy Pain Assessment Pain When Pain Assessed After Treatment Pain Present Pain Present Pain Reported Location Right Leg Intensity 3 Scale Used Numeric (0 - 10) Description Aching,Tender Pain Management Techniques Elevation M4 PT-IP Mobility and Gait Start: 03/07/25 13:53 Freq: NEEDED Status: Active Protocol: Document 03/07/25 12:27 DLM (Rec: 03/07/25 14:41 DLM Desktop) PT-Bed Mobility Assessment Rolling Type of Rolling Bilateral Level of Assist Independent Supine to Sit Supine to Sit Standby Assistance Sit to Supine Sit to Supine Independent Scooting Scooting to Edge of Bed Standby Assistance Scooting Up and Down in Bed Independent PT-Transfer Assessment Comments Mobility Comments He describes itching of right LE under splint and general itching everywhere today. He has left BKA prosthesis in his room but it only has a sock. Hospital sock applied to it for safety. Pt able to sit on edge of bed and participate in transfer training. No slide board use this visit. Beside commode used with drop arm for lateral scooting with min assist and scooting backwards/forwards with commode against the bed with armrest in place bilaterally with min assist. He needs stand by assist for sitting edge of bed without prosthesis due to decreased balance without LE support. It is not safe to attempt standing with his left prosthesis without a shoe. Will be able to progress to standing training once his family brings him a shoe. Gait Assessment Comments Gait Comments unable Stair Climbing Assessment Comments Stair Climbing Comments ramp to enter house PT-Balance Assessment Sitting Balance and Reactions Static Sitting Balance Ability Fair Dynamic Sitting Balance Ability Fair M5 PT-IP Objective Assessments Start: 03/07/25 13:53 Freq: NEEDED Status: Active Protocol: Document 03/07/25 12:27 DLM (Rec: 03/07/25 14:41 DLM Desktop) Orientation Orientation/Cognition Level of Alertness Alert Orientation Name,Age,Birthday,Month,Date, Year,Day of Week,Place, Situation Language Function Ability No Deficits Noted Safety Awareness Understands Safety Issues Memory Description No Deficits Noted Gross Range of Motion Upper Extremity ROM Assessment Within Functional Limits Lower Extremity ROM Assessment Within Functional Limits Impairments mild hamstring tightness left LE but can fully extend his knee in supine right knee in post-op splint so can not flex Strength Upper Extremity Strength Assessment Within Functional Limits Lower Extremity Strength Assessment Right Impaired Knee unable due to post-op splint Ankle NA bilaterally Comments Strength Comments pt moving right LE functionally Coordination Assessment Gross Coordination Gross Coordination WNL Sensation Assessment Comments Sensation Comments 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 with numbness, he denies numbness in hands Muscle Tone Muscle Tone WNL Yes M6 PT-IP Treatment Start: 03/07/25 13:53 Freq: NEEDED Status: Active Protocol: Document 03/07/25 12:27 DLM (Rec: 03/07/25 14:41 DLM Desktop) Physical Therapy Treatment Education Education Provided Safety Other Treatments Other Treatment Performed educated pt in high fall risk falling off side of bed due to new decreased balance without LE support M7 PT-IP Assessment and Plan Start: 03/07/25 13:53 Freq: NEEDED Status: Active Protocol: Document 03/07/25 12:27 DLM (Rec: 03/07/25 14:41 DLM Desktop) PT Summary Assessment and Plan Potential Rehabilitation Potential Good Status of Condition at Evaluation Evolving Summary Impairments Pain,Strength,Balance, Transfers,Gait,Activity Tolerance Assessment Summary Cy is alert and resting in bed post-op right below amputation 03/06/25. He was admitted to the hospital on and failed conservative management of right LE infection. He has a hx of left BKA and has a prosthesis. He was able to sit up without light-headedness. He progressed to sitting balance training sitting edge of bed and transfer training using lateral scooting with his prosthesis on and anterior/ posterior scooting without his prosthesis. He is not safe to progress to standing with his prosthesis since he does not have a shoe for the left. He was assisted during lateral scooting with the prosthesis by the therapist blocking his foot to prevent sliding out. Pt left in bed for lunch in upright position. Pt reports he will have family bring him a shoe for left prosthesis. His wheelchair does not fit into his bathroom at home. Will work towards his goal of discharge home. At this time he is not safe to return home. Recommend SNF rehab to assist with his functional recovery after right BKA. Goals Bed Mobility Goal Independent Transfer Goal Standby Assistance Other Goals pt will be able to transfer with scooting techniques bed- commode and bed-wheelchair without prosthesis Transfer bed-commode/chair with left LE prosthesis with SBA Pt will stand with FWW and left LE prosthesis with SBA Days to Meet Goals 5 Frequency of Treatment Frequency Of Treatment Once a Day Treatment Plan Physical Therapy Treatment Plan Bed Mobility Training,Transfer Training,Therapeutic Exercise ,Balance Retraining,Post Op Education,Discharge Planning, Neuromuscular Re-ed Other Recommendations and Next Treatment focus on standing and Focus transfers Precautions Other Precautions high fall risk due to new bilateral BKA Weight Bearing Status Weight Bearing Status Non-Weight Bearing Allowed Weight Bearing Amount (enter % right LE stump with new or #) (%) amputation below knee Recommendations To Nursing Amount of Assist Needed 1 Person Assist Discharge Recommendations PT Discharge Recommendations SNF Rehab Other Discharge Recommendations his wheelchair does not fit into his bathroom at home Transportation Needs at Discharge Wheelchair/Cabulance - PT assist 1
--- NOTE | 2025-03-07 15:27 | CM.DPNOTE ---
DCP Cont [facility] is in stop placement. Emailed this referral to Petrona at [facility]; patient accepted pending auth from [facility]. Emailed therapy notes to Petrona once available. CM team following closely for coordination. Review discharge plan with patient 03/08. ELIZABETH
[2025-03-07] MEDS: HYDROMORPHONE 2 MG TABLET 4 MG PO ×2 (16:07→21:08)
[2025-03-07] MEDS: methocarbamoL 500 MG TABLET PO ×2 (17:48→21:07)
[2025-03-07 18:00] VITALS: BP 143/75; PULSE 101; RESP 18; TEMP 36.5; O2SAT 99
--- NOTE | 2025-03-07 18:08 | PC.NURSE ---
Day shift: Patient calm and cooperative with all care. Uses call light appropriately. OOB x1 with PT/OT today. Patient's chief complaint today was pain and muscle stiffness in RLE. PO dilaudid and PO robaxin provided relief. Tolerating general diet. Reminded and aided patient in turning every 2 hours, patient continues to have non-open pressure sores on K buttocks and R hip. Will continue to monitor.
[2025-03-07 21:00] VITALS: BP 134/69; PULSE 91; RESP 18; TEMP 36.6; O2SAT 95
[2025-03-07] MEDS: diphenhydrAMINE 25 MG TABLET 50 MG PO (21:08)
[2025-03-07 21:09] VITALS: BP 143/75; PULSE 101
[2025-03-07] MEDS: cefTRIAXone 2,000 MG in SODIUM CHLORIDE 0.9% 100 ML 200 MG IV (21:10)
[2025-03-07] MEDS: INSULIN GLARGINE 100 UNIT/ML 3ML PEN 22 UNIT SUBCUT (21:51)
[2025-03-08] MEDS: ACETAMINOPHEN 325 MG TABLET 650 MG PO ×4 (01:47→21:45)
[2025-03-08] MEDS: HYDROMORPHONE 2 MG TABLET 4 MG PO ×3 (01:47→12:40)
[2025-03-08] MEDS: diphenhydrAMINE 25 MG TABLET 50 MG PO (03:54)
[2025-03-08] MEDS: BUPRENORPHINE/NALOXONE 8MG/2MG 1 TAB SL ×2 (03:54→16:46)
[2025-03-08] MEDS: methocarbamoL 500 MG TABLET PO ×3 (03:54→14:29)
[2025-03-08 05:08] LABS: Mean Corpuscular HGB Conc 33.2 % (30-36); Mean Corpuscular Hemoglobin 25.9 PG (26-34); Platelet Count 274 X10^3/uL (150-400); Red Blood Cell Count 4.24 X10^6/uL (4.5-5.9); Red Cell Distribution Width 14.7 % (11.6-14.8); White Blood Cell Count 12.8 X10^3/uL (4.5-11.0)
[2025-03-08 05:24] LABS: BUN Creatinine Ratio 32.8 (6-22); Blood Urea Nitrogen 22 mg/dL (9-20); Calcium 8.2 mg/dL (8.4-10.2); Carbon Dioxide 26 mmol/L (22-32); Chloride 100 mmol/L (98-107); Estimated Glomerular Filt Rate > 60 mL/min (>60); Glucose 264 mg/dL (70-99); HEMOLYSIS < 15 (0-50); Potassium 4.2 mmol/L (3.4-5.1); Sodium 131 mmol/L (137-145)
[2025-03-08] MEDS: INSULIN LISPRO 100 UNIT/ML 3ML VIAL SUBCUT ×6 (08:07→17:13)
[2025-03-08] MEDS: ENOXAPARIN 40 MG/0.4 ML SYRINGE SUBCUT (08:10)
[2025-03-08 08:12] VITALS: BP 160/81; PULSE 86
[2025-03-08] MEDS: carvediloL 3.125 MG TABLET PO ×2 (08:12→21:34)
[2025-03-08] MEDS: SODIUM CHLORIDE 0.9% FLUSH 10 ML IV ×2 (08:12→23:01)
[2025-03-08] MEDS: GABAPENTIN 300 MG CAPSULE PO ×3 (08:12→21:34)
[2025-03-08 08:26] VITALS: BP 160/81; PULSE 86; RESP 19; TEMP 37; O2SAT 99
--- NOTE | 2025-03-08 08:33 | PM.PNPO.1 ---
Subjective Subjective Interval history: He notes he is doing okay. He is still having problems with pain control. He is on Suboxone and has been on Suboxone for several years. He was getting some benefit from gabapentin and Dilaudid. Exam Vital Signs (past 8 hours): - 03/08/25 08:12 03/08/25 08:26 Temperature 98.6 F Pulse Rate 86 86 Respiratory Rate 19 Blood Pressure 160/81 H 160/81 H Pulse Oximetry 99 Oxygen Flow Rate 0 Oxygen Delivery Method Room Air Oxygen Flow Rate 0 Narrative Exam Narrative: Resting comfortably in bed, dressing is dry. Minimal drainage Objective Labs 03/08/25 04:37 03/08/25 04:37 Labs: Laboratory Results - last 24 hr 03/08/25 04:37 WBC 12.8 H RBC 4.24 L Hgb 11.0 L Hct 33.0 L MCV 78.0 L MCH 25.9 L MCHC 33.2 RDW 14.7 Plt Count 274 Sodium 131 L Potassium 4.2 Chloride 100 Carbon Dioxide 26 BUN 22 H Creatinine 0.67 Estimated GFR > 60 BUN/Creatinine Ratio 32.8 H Glucose 264 H Calcium 8.2 L PFSH Medical History Smoking addiction Diabetes CHF (congestive heart failure) Social History details: Ambulates with a prosthetic for a below-knee amputation on the left household members: none Smoking Status: Current every day smoker alcohol intake: never Assessment & Plan Post-op Postoperative Procedures: Procedures Operation Date: 03/06/25 15:15 Actual Procedure Side Surgeon p Below knee amputation Right Joi Acevedo MD Postoperative day: 2 Postoperative status: marginal pain control Postoperative plan narrative: He is stable postoperatively. I recommended that we remove his drain. Scheduled follow up a [facility] orthopedics in 3 weeks. Gabapentin 300 mg t.i.d. for 1 month. Dilaudid for breakthrough pain. Okay to DC to rehab from an ortho standpoint. Quality VTE Deep Vein Thrombosis/Pulmonary Embolism Present on Admission: No
[2025-03-08] MEDS: HYDROMORPHONE 0.5 MG INJ IV (09:09)
--- NOTE | 2025-03-08 09:25 | OT.IPNOTE ---
Pt states in too much pain at this time to get up, however pt did get pain meds earlier. Pt wanting to get some rest as did not sleep well last night.
[2025-03-08] MEDS: HYDROMORPHONE 0.5 MG INJ 1 MG IV ×6 (11:14→23:53)
--- NOTE | 2025-03-08 12:30 | CM.DPNOTE ---
DCP Cont Reviewed chart. Patient discussed in multidisciplinary rounds. Therapy continues, current recommendation is SNF. Met w/patient to review discharge plan. Updated that [facility] is not accepting admissions currently. Explained that it is likely that [facility] will be able to admit pending insurance authorization. Patient calmly considered and stated he would rather return home. Patient reports that he could go home w/help from his roommate. Patient's home wheelchair is small enough for his mobile home and has leg rests. Patient already has a shower chair. Patient remains optimistic that if he uses his left prosthetic during therapy evals, he can learn how to navigate with his new right BKA. Patient asks about his friend/roommate becoming a paid caregiver. Discussed [employer] headgate operator care; will plan to bring patient an application. This [employer]RY MANAGER explained SW team will follow along closely and patient appreciative. Patient has the right to return home instead of SNF. Patient understands that SNF is being recommended currently. Discharge plan: Home w/HH vs [facility] SNF, pending patient's agreement to a plan; therapies continue to recommend SNF. If SNF, auth needed from [facility]. PASRR completed. CM team following clinical course closely. ELIZABETH
--- NOTE | 2025-03-08 13:28 | OT.IPNOTE ---
Attempted to see pt again for OT , pt refusing as states in too much pain and just wanting to sleep.
[2025-03-08] MEDS: OXYCODONE IR 10 MG TABLET PO ×3 (14:18→21:35)
[2025-03-08] MEDS: ONDANSETRON 4 MG ODT PO (15:00)
--- NOTE | 2025-03-08 16:00 | PT.IPTN ---
Current Diagnoses Sepsis, unspecified organism (02/26/25) Type 2 diabetes mellitus with foot ulcer (02/26/25) Type 2 diabetes mellitus without complications (02/26/25) Nicotine dependence, unspecified, uncomplicated (02/26/25) Peripheral vascular disease, unspecified (02/26/25) Cellulitis of unspecified part of limb (02/26/25) Non-pressure chronic ulcer of other part of unspecified foot with unspecified severity (02/26/25) Non-pressure chronic ulcer of other part of right foot with necrosis of bone (02/26/25) Non-pressure chronic ulcer of unspecified part of unspecified lower leg with unspecified severity (02/26/25) Chronic osteomyelitis with draining sinus, right ankle and foot (02/26/25) Osteomyelitis, unspecified (02/26/25) Surgery Performed Operation Date: 03/06/25 15:15 Actual Procedures p Below knee amputation(Right) - Joi Acevedo MD Physical Therapy Treatment Note M2 PT-IP Current Condition Start: 03/07/25 13:53 Freq: NEEDED Status: Active Protocol: Document 03/07/25 12:27 DLM (Rec: 03/07/25 14:41 DLM Desktop) Physical Therapy Current Condition Current Condition Evaluation Date 03/07/25 Treatment Diagnosis right BKA, impaired mobility/ gait Onset Date 03/06/25 M3 PT-IP Subjective Start: 03/07/25 13:53 Freq: NEEDED Status: Active Protocol: Document 03/08/25 16:00 AB (Rec: 03/08/25 17:14 AB [id number]) Subjective Physical Therapy Visit Type Type Treatment Note Visit Start Time 16:00 Visit Stop Time 16:20 Number of ASSEMBLER CAMPER Visits 0 Therapy Pain Assessment Pain When Pain Assessed At Rest Pain Present Pain Present Pain Reported Location Right Leg Intensity 8 Scale Used Numeric (0 - 10) Pain Management Techniques Distraction,Modification of Treatment,Re-positioning, Timing of Activity with Medications M4 PT-IP Mobility and Gait Start: 03/07/25 13:53 Freq: NEEDED Status: Active Protocol: Document 03/08/25 16:00 AB (Rec: 03/08/25 17:14 AB [id number]) PT-Transfer Assessment Sit to and From Stand Sit to and from Stand Maximum Assistance,2 Person Assistance,Use of Upper Extremities Equipment Transfer Assistive Device Gait Belt,Front Wheeled Walker Orthotic/Prosthetic Devices or Brace: No Transfers Transfer Destination Chair Transfer Technique Squat Pivot Transfer Ability Level of Assist Maximum Assistance,2 Person Assistance,Use of Upper Extremities Comments Mobility Comments checked on pt x 2. pt initially refusing to do PT and wants to sleep but agreed for PT to checked again. checked on pt after and agreed to do PT. pt already sitting on the EOB. c/o 8/10 RLE pain . pt was able to leeann L prosthesis. completed sit <> stand x 3 attempts: max A x 2 and max cues. able to stand max A x 2 using FWW for support ~ 30 sec. pt with stooped posture and increase L knee flexion. pt stated he cannot stand upright even before and has difficulty with straightening L knee. pt agreed to transfer to chair. completed squat pivot transfer to chair max A x 2 and max cues. positioned pt on the chair. call light and table placed within reach. M5 PT-IP Objective Assessments Start: 03/07/25 13:53 Freq: NEEDED Status: Active Protocol: Document 03/07/25 12:27 DLM (Rec: 03/07/25 14:41 DLM Desktop) Orientation Orientation/Cognition Level of Alertness Alert Orientation Name,Age,Birthday,Month,Date, Year,Day of Week,Place, Situation Language Function Ability No Deficits Noted Safety Awareness Understands Safety Issues Memory Description No Deficits Noted Gross Range of Motion Upper Extremity ROM Assessment Within Functional Limits Lower Extremity ROM Assessment Within Functional Limits Impairments mild hamstring tightness left LE but can fully extend his knee in supine right knee in post-op splint so can not flex Strength Upper Extremity Strength Assessment Within Functional Limits Lower Extremity Strength Assessment Right Impaired Knee unable due to post-op splint Ankle NA bilaterally Comments Strength Comments pt moving right LE functionally Coordination Assessment Gross Coordination Gross Coordination WNL Sensation Assessment Comments Sensation Comments 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 with numbness, he denies numbness in hands Muscle Tone Muscle Tone WNL Yes M6 PT-IP Treatment Start: 03/07/25 13:53 Freq: NEEDED Status: Active Protocol: Document 03/08/25 16:00 AB (Rec: 03/08/25 17:14 AB [id number]) Physical Therapy Treatment Education Education Provided Safety M7 PT-IP Assessment and Plan Start: 03/07/25 13:53 Freq: NEEDED Status: Active Protocol: Document 03/08/25 16:00 AB (Rec: 03/08/25 17:14 AB [id number]) PT Summary Assessment and Plan Potential Rehabilitation Potential Fair Summary Impairments Pain,ROM,Strength,Balance, Coordination,Sensation,Tone, Cognition,Bed Mobility, Transfers,Gait,Activity Tolerance Progress Towards Goals Slow Progress due to Pain,Slow Progress - Other Assessment Summary pt requiring max A x 2 for squat pivot transfer to chair. pt able to stand with L prosthesis and FWW requiring max A x 2 and max cues. pt will benefit from SNF rehab to improve overall strength and function. Goals Bed Mobility Goal Independent Transfer Goal Standby Assistance Other Goals pt will be able to transfer with scooting techniques bed- commode and bed-wheelchair without prosthesis Transfer bed-commode/chair with left LE prosthesis with SBA Pt will stand with FWW and left LE prosthesis with SBA Days to Meet Goals 5 Frequency of Treatment Frequency Of Treatment Once a Day Treatment Plan Physical Therapy Treatment Plan Bed Mobility Training,Transfer Training,Therapeutic Exercise ,Balance Retraining,Post Op Education,Discharge Planning, Neuromuscular Re-ed Precautions Other Precautions high fall risk due to new bilateral BKA Weight Bearing Status Weight Bearing Status Non-Weight Bearing Allowed Weight Bearing Amount (enter % right LE stump with new or #) (%) amputation below knee Recommendations To Nursing Amount of Assist Needed 2 Person Assist Discharge Recommendations PT Discharge Recommendations SNF Rehab Transportation Needs at Discharge Wheelchair/Cabulance - PT assist 2
--- NOTE | 2025-03-08 17:39 | PM.PN.1 ---
Subjective Subjective Date Patient Seen: 03/08/25 Interval history: Chief complaint: Right lower leg gangrene osteomyelitis with pain History of present illness: 59 M with PMH of DM2, HTN, CHFpEF (EF 42% 09/2023), PAD, prior L BKA (09/2023), opiate use disorder on suboxone who presents for worsening ulceration of his R lower leg for the last severeal months. Orthopedic provider currently plan for BKA next week on 03/06. Hospital course: 03/01: The patient has no new complaints. Blood sugars are in the 200-300 range. 03/02: No new issues. He has no complaints. Blood sugars in the 170s to 200 range. 03/03: No new complaints. Right leg wound cleaned by Orthopedics yesterday. Blood sugars in the 140s to 150s range. 03/04-: Stable, on IV antibiotics, awaiting BKA. 03/06: Underwent right BKA without any postoperative complications 03/07: No fevers or chills pain medicines being adjusted for adequate analgesia 03/08: Patient responding better to oxycodone orally then Dilaudid orally for pain no fevers or chills Objective findings: Imaging Multiple studies: : Radiologist's impression: 1. Chest xray 02/26/2025: No acute cardiopulmonary abnormality is seen. 2. Right foot xray 02/26/2025: Osteomyelitis of the 1st metatarsal head/neck with intra-articular extension at the MTP joint. 3. Arterial doppler US 02/26/2025: Multifocal areas of high-grade 50-99% stenosis throughout the right lower extremity arterial vasculature. 4. Foot MRI 02/27/2025: 1. Full-thickness ulceration involving plantar aspect of 1st MTP joint with extensive midfoot and forefoot soft tissue cellulitis. No discrete drainable abscess collection. 2. Finding is consistent with osteomyelitis involving 1st metatarsal bone and 1st proximal phalanx as well as medial and lateral sesamoids of 1st metatarsal head with extensive marrow edema and bony erosive changes. Heterogeneous contrast enhancement in the area of edema is seen. 3. No other area of abnormal marrow signal. Susceptibility artifacts are noted in plantar aspect of 3rd toe. No other area of abnormal intraosseous enhancement. 4. No gross full-thickness extensor or flexor tendon rupture. No gross plantar foot muscle signal abnormalities. No enhancing soft tissue mass. 5. Lower extremity CTA 02/27/2025: 1. Severe high-grade stenosis of the bilateral superficial femoral and profunda femoris arteries, with patent but poor opacification of the right lower extremity triple-vessel runoff. The CTA is concordant with the right lower extremity arterial Doppler ultrasound findings. 2. 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 3. Right foot 1st ray osteomyelitis with likely superimposed cellulitis. Review of systems: No fever chills or changes in appetite No chest pains or palpitation No cough or shortness a breath No nausea vomiting diarrhea No urinary symptoms Physical exam: No acute distress HEENT unremarkable Heart and lungs clear Abdomen benign Right lower extremity bandaged Assessment and plan: 1. Infected Right 1st metatarsal diabetic ulcer with osteomyelitis, present on admission and active status post BKA 03/07 - Culturing Klebsiella oxytoca and Group g streptococcus - Stopped Cefepime, Vancomycin on 03/01, and continue with IV Ceftriaxone 2g IV q24hr 2. Severe PAD/chronic tobacco use/diabetic microvascular disease, present on admission and stable. - Not a candidate for vascular intervention per vascular surgery consultation x 2 - Plan right BKA 3. Diabetes mellitus, type 2 / non-compliance with metformin, present on admission and stable. - increased to 20 U lantus daily on 03/01 and continue 5 U TID AC, will hold home oral agents at this time. - poor long-term control A1C 10.7 %, currently well-controlled 4. Tobacco use disorder, present on admission and stable. - nicotine replacement. 5. Continuous opiate dependence, present on admission and stable. - continue Suboxone home regimen. 6. Chronic systolic heart failure with repeat echo revealed an EF of 35% and no wall motion abnormalities. -This is chronic and stable. PLAN: Code: Full, surrogate is patient's daughter DVT: Lovenox Time-Based Coding :: 35 minutes spent with patient and on the chart (including review of chart, obtaining history, exam, reviewing outside data, placing orders, documenting exam and treatment plan, and counseling patient). Exam Vital Signs (past 8 hours): Oxygen Delivery Method Room Air Oxygen Flow Rate 0 Objective Labs 03/08/25 04:37 03/08/25 04:37 Labs: Laboratory Results - last 24 hr 03/08/25 04:37 WBC 12.8 H RBC 4.24 L Hgb 11.0 L Hct 33.0 L MCV 78.0 L MCH 25.9 L MCHC 33.2 RDW 14.7 Plt Count 274 Sodium 131 L Potassium 4.2 Chloride 100 Carbon Dioxide 26 BUN 22 H Creatinine 0.67 Estimated GFR > 60 BUN/Creatinine Ratio 32.8 H Glucose 264 H Calcium 8.2 L PFSH Medical History Smoking addiction Diabetes CHF (congestive heart failure) Social History details: Ambulates with a prosthetic for a below-knee amputation on the left household members: none Smoking Status: Current every day smoker alcohol intake: never Assessment & Plan Time-Based Coding :: [TOTAL MINUTES] spent with patient and on the chart (including review of chart, obtaining history, exam, reviewing outside data, placing orders, documenting exam and treatment plan, and counseling patient) on [DATE]. Quality VTE Deep Vein Thrombosis/Pulmonary Embolism Present on Admission: No
[2025-03-08] MEDS: OXYCODONE IR 5 MG TABLET PO (18:09)
[2025-03-08 20:00] VITALS: BP 130/66; PULSE 62; RESP 12; TEMP 36.1; O2SAT 95
[2025-03-08 21:34] VITALS: BP 130/78; PULSE 62
[2025-03-08] MEDS: SENNOSIDES 8.6 MG TABLET 17.2 MG PO (21:36)
[2025-03-08] MEDS: INSULIN GLARGINE 100 UNIT/ML 3ML PEN 26 UNIT SUBCUT (21:42)
[2025-03-08] MEDS: cefTRIAXone 2,000 MG in SODIUM CHLORIDE 0.9% 100 ML 200 MG IV (21:46)
[2025-03-09] MEDS: HYDROMORPHONE 0.5 MG INJ 1 MG IV ×2 (04:17→20:12)
[2025-03-09] MEDS: BUPRENORPHINE/NALOXONE 8MG/2MG 1 TAB SL ×2 (04:27→16:18)
[2025-03-09 08:00] VITALS: BP 130/67; PULSE 82; RESP 20; TEMP 36.4; O2SAT 100
[2025-03-09] MEDS: methocarbamoL 500 MG TABLET PO ×2 (08:11→16:18)
[2025-03-09] MEDS: GABAPENTIN 300 MG CAPSULE PO ×3 (08:11→20:11)
[2025-03-09] MEDS: ACETAMINOPHEN 325 MG TABLET 650 MG PO ×3 (08:12→21:20)
[2025-03-09 08:13] VITALS: BP 130/67; PULSE 82
[2025-03-09] MEDS: carvediloL 3.125 MG TABLET PO ×2 (08:13→20:11)
[2025-03-09] MEDS: NICOTINE 21 MG PATCH TOP (08:14)
[2025-03-09] MEDS: ENOXAPARIN 40 MG/0.4 ML SYRINGE SUBCUT (08:15)
[2025-03-09] MEDS: INSULIN LISPRO 100 UNIT/ML 3ML VIAL SUBCUT ×6 (08:22→16:56)
--- NOTE | 2025-03-09 09:50 | PC.NURSE ---
Received verbal order from MD Heard to d/c cont. IVF; stated no need for contact precations.
[2025-03-09 09:54] VITALS: BMI 22.4
[2025-03-09] MEDS: SODIUM CHLORIDE 0.9% FLUSH 10 ML IV ×2 (09:57→20:12)
[2025-03-09] MEDS: OXYCODONE IR 5 MG TABLET PO (12:27)
--- NOTE | 2025-03-09 12:54 | PM.PNPO.1 ---
Subjective Subjective Interval history: Pain is much better controlled today. He worked some with physical therapy. Exam Vital Signs (past 8 hours): - 03/09/25 08:00 03/09/25 08:13 Temperature 97.6 F Pulse Rate 82 82 Respiratory Rate 20 Blood Pressure 130/67 130/67 Pulse Oximetry 100 Oxygen Flow Rate 0 Oxygen Delivery Method Room Air Oxygen Flow Rate 0 Narrative Exam Narrative: Dressing dry and intact, alert oriented appears comfortable mobilizing well in bed Objective Labs 03/08/25 04:37 03/08/25 04:37 [facility] Medical History Smoking addiction Diabetes CHF (congestive heart failure) Social History details: Ambulates with a prosthetic for a below-knee amputation on the left household members: none Smoking Status: Current every day smoker alcohol intake: never Assessment & Plan Post-op Postoperative Procedures: Procedures Operation Date: 03/06/25 15:15 Actual Procedure Side Surgeon p Below knee amputation Right Joi Acevedo MD Postoperative day: 3 Postoperative status: doing well Postoperative status narrative: He is doing well with therapy. Postoperative plan narrative: Doing well with postoperative treatment. He is not independent for discharge to home. They are working on authorization and placement at rehab. We are recommending 4 weeks of Lovenox 40 mg subQ q.d. for DVT prophylaxis. He was stable to be discharged from an orthopedic standpoint. We will sign off for now. Quality VTE Deep Vein Thrombosis/Pulmonary Embolism Present on Admission: No
--- NOTE | 2025-03-09 14:50 | PT.IPTN ---
Current Diagnoses Sepsis, unspecified organism (02/26/25) Type 2 diabetes mellitus with foot ulcer (02/26/25) Type 2 diabetes mellitus without complications (02/26/25) Nicotine dependence, unspecified, uncomplicated (02/26/25) Peripheral vascular disease, unspecified (02/26/25) Cellulitis of unspecified part of limb (02/26/25) Non-pressure chronic ulcer of other part of unspecified foot with unspecified severity (02/26/25) Non-pressure chronic ulcer of other part of right foot with necrosis of bone (02/26/25) Non-pressure chronic ulcer of unspecified part of unspecified lower leg with unspecified severity (02/26/25) Chronic osteomyelitis with draining sinus, right ankle and foot (02/26/25) Osteomyelitis, unspecified (02/26/25) Surgery Performed Operation Date: 03/06/25 15:15 Actual Procedures p Below knee amputation(Right) - Joi Acevedo MD Physical Therapy Treatment Note M2 PT-IP Current Condition Start: 03/07/25 13:53 Freq: NEEDED Status: Active Protocol: Document 03/07/25 12:27 DLM (Rec: 03/07/25 14:41 DLM Desktop) Physical Therapy Current Condition Current Condition Evaluation Date 03/07/25 Treatment Diagnosis right BKA, impaired mobility/ gait Onset Date 03/06/25 M3 PT-IP Subjective Start: 03/07/25 13:53 Freq: NEEDED Status: Active Protocol: Document 03/09/25 14:50 AB (Rec: 03/09/25 16:19 AB Desktop) Subjective Physical Therapy Visit Type Type Treatment Note Visit Start Time 14:50 Visit Stop Time 15:20 Number of PHYSICAL THERAPY ASST Visits 0 Physical Therapy Visit Comments Patient Comments agreeable to do PT Therapy Pain Assessment Pain When Pain Assessed At Rest Pain Present Pain Present Pain Reported Location Right Leg Intensity 6 Scale Used Numeric (0 - 10) Pain Management Techniques Distraction,Elevation, Modification of Treatment,Re- positioning,Timing of Activity with Medications M4 PT-IP Mobility and Gait Start: 03/07/25 13:53 Freq: NEEDED Status: Active Protocol: Document 03/09/25 14:50 AB (Rec: 03/09/25 16:19 AB Desktop) PT-Bed Mobility Assessment Supine to Sit Supine to Sit Standby Assistance PT-Transfer Assessment Sit to and From Stand Sit to and from Stand Maximum Assistance,2 Person Assistance,Use of Upper Extremities Equipment Transfer Assistive Device None Orthotic/Prosthetic Devices or Brace: Yes Transfers Transfer Technique Squat Pivot Transfer Ability Level of Assist Moderate Assistance,Maximum Assistance,2 Person Assistance ,Use of Upper Extremities Comments Mobility Comments pt in bed and agreeable to do PT. stated that pt is better today. completed supine to sit SBA. able to sit on EOB SBA and donned his L prosthesis by himself. pt does not want shoe on L prosthesis as this makes it hard for him to pivot . pt just wants non skid sock on L prosthesis during transfer but agreed to do standing fist with shoe on for safety. pt completed sit to stand max A and max cues. max A x 2 for standing balance using fWW for support. unable to stand upright. pt stated that he has not been able to stand upright due to back issues. pt tolerated 2 min 20 sec of standing. pt refused slide board transfer and stated that he has pressure sores on his buttocks and is painful for him to sit on a hard surface and does not want to use slide board for transfers. positioned chair next to pt. changed shoe to nonskid sock per pt's request. pt completed squat pivot transfer from bed to chair mod x 2 to max x 2 . positioned pt on the chair. call light and table placed within reach. nurse in room and assisted PT. educated pt on exercises: L knee extension when seated and supine. pt with splint on R knee and unable to do extension, L hip extension in sidelying on BLE. M5 PT-IP Objective Assessments Start: 03/07/25 13:53 Freq: NEEDED Status: Active Protocol: Document 03/07/25 12:27 DLM (Rec: 03/07/25 14:41 DLM Desktop) Orientation Orientation/Cognition Level of Alertness Alert Orientation Name,Age,Birthday,Month,Date, Year,Day of Week,Place, Situation Language Function Ability No Deficits Noted Safety Awareness Understands Safety Issues Memory Description No Deficits Noted Gross Range of Motion Upper Extremity ROM Assessment Within Functional Limits Lower Extremity ROM Assessment Within Functional Limits Impairments mild hamstring tightness left LE but can fully extend his knee in supine right knee in post-op splint so can not flex Strength Upper Extremity Strength Assessment Within Functional Limits Lower Extremity Strength Assessment Right Impaired Knee unable due to post-op splint Ankle NA bilaterally Comments Strength Comments pt moving right LE functionally Coordination Assessment Gross Coordination Gross Coordination WNL Sensation Assessment Comments Sensation Comments 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 with numbness, he denies numbness in hands Muscle Tone Muscle Tone WNL Yes M6 PT-IP Treatment Start: 03/07/25 13:53 Freq: NEEDED Status: Active Protocol: Document 03/09/25 14:50 AB (Rec: 03/09/25 16:19 AB Desktop) Physical Therapy Treatment Education Education Provided Safety M7 PT-IP Assessment and Plan Start: 03/07/25 13:53 Freq: NEEDED Status: Active Protocol: Document 03/09/25 14:50 AB (Rec: 03/09/25 16:19 AB Desktop) PT Summary Assessment and Plan Potential Rehabilitation Potential Fair Summary Impairments Pain,ROM,Strength,Balance, Coordination,Sensation,Tone, Cognition,Bed Mobility, Transfers,Gait,Activity Tolerance Progress Towards Goals Slow Progress due to Pain,Slow Progress due to Medical Issues,Slow Progress due to Activity Tolerance Assessment Summary pt requiring max A x 2 for sit to stand and mod x 2 to max A x 2 for squat pivot transfer. pt will benefit from SNF rehab to improve overall strength and mobility independence. Goals Bed Mobility Goal Independent Transfer Goal Standby Assistance Other Goals pt will be able to transfer with scooting techniques bed- commode and bed-wheelchair without prosthesis Transfer bed-commode/chair with left LE prosthesis with SBA Pt will stand with FWW and left LE prosthesis with SBA Days to Meet Goals 5 Frequency of Treatment Frequency Of Treatment Once a Day Treatment Plan Physical Therapy Treatment Plan Bed Mobility Training,Transfer Training,Gait Training, Therapeutic Exercise,Balance Retraining,Post Op Education, Discharge Planning,Hot or Cold Pack,Neuromuscular Re-ed, Coordination Retraining,Manual Therapy Precautions Other Precautions high fall risk due to new bilateral BKA Weight Bearing Status Weight Bearing Status Non-Weight Bearing Allowed Weight Bearing Amount (enter % right LE stump with new or #) (%) amputation below knee Recommendations To Nursing Amount of Assist Needed 2 Person Assist Discharge Recommendations PT Discharge Recommendations SNF Rehab Transportation Needs at Discharge Wheelchair/Cabulance - PT assist 2
[2025-03-09] MEDS: OXYCODONE IR 10 MG TABLET PO ×2 (16:55→21:24)
[2025-03-09 20:00] VITALS: BP 132/71; PULSE 87; RESP 19; TEMP 36.4; O2SAT 96
[2025-03-09] MEDS: diphenhydrAMINE 25 MG TABLET 50 MG PO (20:11)
[2025-03-09] MEDS: INSULIN GLARGINE 100 UNIT/ML 3ML PEN 26 UNIT SUBCUT (21:19)
[2025-03-09] MEDS: cefTRIAXone 2,000 MG in SODIUM CHLORIDE 0.9% 100 ML 200 MG IV (21:20)
[2025-03-10] MEDS: HYDROMORPHONE 0.5 MG INJ 1 MG IV ×5 (01:49→20:45)
[2025-03-10] MEDS: ACETAMINOPHEN 325 MG TABLET 650 MG PO ×4 (01:52→20:50)
[2025-03-10] MEDS: BUPRENORPHINE/NALOXONE 8MG/2MG 1 TAB SL ×2 (04:07→16:26)
[2025-03-10 08:00] VITALS: BP 144/80; PULSE 76; RESP 20; TEMP 36.3; O2SAT 99
[2025-03-10] MEDS: INSULIN LISPRO 100 UNIT/ML 3ML VIAL SUBCUT ×7 (08:08→20:52)
--- NOTE | 2025-03-10 09:27 | PT.IPTN ---
Current Diagnoses Sepsis, unspecified organism (02/26/25) Type 2 diabetes mellitus with foot ulcer (02/26/25) Type 2 diabetes mellitus without complications (02/26/25) Nicotine dependence, unspecified, uncomplicated (02/26/25) Peripheral vascular disease, unspecified (02/26/25) Cellulitis of unspecified part of limb (02/26/25) Non-pressure chronic ulcer of other part of unspecified foot with unspecified severity (02/26/25) Non-pressure chronic ulcer of other part of right foot with necrosis of bone (02/26/25) Non-pressure chronic ulcer of unspecified part of unspecified lower leg with unspecified severity (02/26/25) Chronic osteomyelitis with draining sinus, right ankle and foot (02/26/25) Osteomyelitis, unspecified (02/26/25) Surgery Performed Operation Date: 03/06/25 15:15 Actual Procedures p Below knee amputation(Right) - Joi Acevedo MD Physical Therapy Treatment Note M2 PT-IP Current Condition Start: 03/07/25 13:53 Freq: NEEDED Status: Active Protocol: Document 03/07/25 12:27 DLM (Rec: 03/07/25 14:41 DLM Desktop) Physical Therapy Current Condition Current Condition Evaluation Date 03/07/25 Treatment Diagnosis right BKA, impaired mobility/ gait Onset Date 03/06/25 M3 PT-IP Subjective Start: 03/07/25 13:53 Freq: NEEDED Status: Active Protocol: Document 03/10/25 09:09 MB (Rec: 03/10/25 09:27 MB Desktop) Subjective Physical Therapy Visit Type Type Treatment Note Visit Start Time 09:09 Visit Stop Time 09:19 Number of SURVEY OPERATIONS DIRECTOR Visits 0 Physical Therapy Visit Comments Patient Comments Agreeable to PT for transfer practice. Therapy Pain Assessment Pain When Pain Assessed At Rest Pain Present Pain Present Denied Pain M4 PT-IP Mobility and Gait Start: 03/07/25 13:53 Freq: NEEDED Status: Active Protocol: Document 03/10/25 09:09 MB (Rec: 03/10/25 09:27 MB Desktop) PT-Transfer Assessment Comments Mobility Comments SPT to the left, towards prosthetic leg x2: PT moves chair around for first transfer and he takes a sitting rest break on arm rest before fully pivoting to bed first attempt, CGA, gait belt donned. PT moves chair back around and ed pt to transfer without boosting self on arm rest and CGA and fully completes SPT without boosting second attempt. Pt declines further PT. PT ed him in benefits of having roommate bring in his w/c for more mobility practice to BR, w/c mobility. PT-Balance Assessment Sitting Balance and Reactions Static Sitting Balance Ability Good Dynamic Sitting Balance Ability Fair M5 PT-IP Objective Assessments Start: 03/07/25 13:53 Freq: NEEDED Status: Active Protocol: Document 03/07/25 12:27 DLM (Rec: 03/07/25 14:41 DLM Desktop) Orientation Orientation/Cognition Level of Alertness Alert Orientation Name,Age,Birthday,Month,Date, Year,Day of Week,Place, Situation Language Function Ability No Deficits Noted Safety Awareness Understands Safety Issues Memory Description No Deficits Noted Gross Range of Motion Upper Extremity ROM Assessment Within Functional Limits Lower Extremity ROM Assessment Within Functional Limits Impairments mild hamstring tightness left LE but can fully extend his knee in supine right knee in post-op splint so can not flex Strength Upper Extremity Strength Assessment Within Functional Limits Lower Extremity Strength Assessment Right Impaired Knee unable due to post-op splint Ankle NA bilaterally Comments Strength Comments pt moving right LE functionally Coordination Assessment Gross Coordination Gross Coordination WNL Sensation Assessment Comments Sensation Comments 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 with numbness, he denies numbness in hands Muscle Tone Muscle Tone WNL Yes M6 PT-IP Treatment Start: 03/07/25 13:53 Freq: NEEDED Status: Active Protocol: Document 03/10/25 09:09 MB (Rec: 03/10/25 09:27 MB Desktop) Physical Therapy Treatment Education Education Provided Safety M7 PT-IP Assessment and Plan Start: 03/07/25 13:53 Freq: NEEDED Status: Active Protocol: Document 03/10/25 09:09 MB (Rec: 03/10/25 09:27 MB Desktop) PT Summary Assessment and Plan Potential Rehabilitation Potential Fair Status of Condition at Evaluation Evolving Summary Impairments Pain,ROM,Strength,Balance, Coordination,Sensation,Bed Mobility,Transfers,Gait, Activity Tolerance Progress Towards Goals Progressing Toward Goals Assessment Summary CGA for SPT training to the left x2 today. Ed pt in benefits of having his roommate bring in his w/c from home to practice BR transfer and w/c mobility now that he is s/p B BKA at this time. Goals Bed Mobility Goal Independent Transfer Goal Standby Assistance Other Goals SPT to the left Pt will transfer to and from bed, chair, w/c and w/c to toilet with no more than SBA. PT asks pt to have his roommate bring in his w/c from home. Pt will mobilize at least 50' with I in his w/c. Days to Meet Goals 5 Frequency of Treatment Frequency Of Treatment Once a Day Treatment Plan Physical Therapy Treatment Plan Bed Mobility Training,Transfer Training,Therapeutic Exercise ,Balance Retraining,Post Op Education,Discharge Planning, Hot or Cold Pack,Neuromuscular Re-ed,Coordination Retraining ,Manual Therapy Other Recommendations and Next Treatment Follow-up about getting his w/ Focus c in to hospital for better mobility practice, w/c mobility Precautions Other Precautions Fall risk, left prosthesis Weight Bearing Status Allowed Weight Bearing Amount (enter % NWB on RLE s/p BKA or #) (%) Recommendations To Nursing Amount of Assist Needed 1 Person Assist Discharge Recommendations PT Discharge Recommendations Home with 16/05 Assist Available,Home Health,Home vs SNF Transportation Needs at Discharge Private Vehicle - PT assist x1
[2025-03-10] MEDS: GABAPENTIN 300 MG CAPSULE PO ×3 (09:55→20:45)
[2025-03-10] MEDS: carvediloL 3.125 MG TABLET PO ×2 (09:59→20:44)
[2025-03-10] MEDS: ENOXAPARIN 40 MG/0.4 ML SYRINGE SUBCUT (10:00)
[2025-03-10] MEDS: SODIUM CHLORIDE 0.9% FLUSH 10 ML IV ×2 (10:04→20:45)
[2025-03-10] MEDS: OXYCODONE IR 10 MG TABLET PO ×2 (11:45→19:04)
[2025-03-10] MEDS: NICOTINE 21 MG PATCH TOP (11:47)
[2025-03-10] MEDS: methocarbamoL 500 MG TABLET PO ×3 (11:48→20:44)
[2025-03-10] MEDS: polyethylene glycoL 3350 17 GM POWD.PACK PO (12:00)
--- NOTE | 2025-03-10 17:14 | PM.PN.1 ---
Subjective Subjective Date Patient Seen: 03/10/25 Interval history: Chief complaint: Right lower leg gangrene osteomyelitis with pain History of present illness: 59 M with PMH of DM2, HTN, CHFpEF (EF 42% 09/2023), PAD, prior L BKA (09/2023), opiate use disorder on suboxone who presents for worsening ulceration of his R lower leg for the last severeal months. Orthopedic provider currently plan for BKA next week on 03/06. Hospital course: 03/01: The patient has no new complaints. Blood sugars are in the 200-300 range. 03/02: No new issues. He has no complaints. Blood sugars in the 170s to 200 range. 03/03: No new complaints. Right leg wound cleaned by Orthopedics yesterday. Blood sugars in the 140s to 150s range. 03/04-: Stable, on IV antibiotics, awaiting BKA. 03/06: Underwent right BKA without any postoperative complications 03/07: No fevers or chills pain medicines being adjusted for adequate analgesia 03/08: Patient responding better to oxycodone orally then Dilaudid orally for pain no fevers or chills 03/09: Pain is significantly better patient requires 2 person assist per physical therapy yesterday had discussion patient is reluctantly agreeing that rehab is necessary preparations made for discharge and planning for 10 days of oral cefdinir after discharge 03/10: Penicillin difficulty better patient is working with PT awaiting insurance authorization to discharge to rehab Objective findings: Imaging Multiple studies: : Radiologist's impression: 1. Chest xray 02/26/2025: No acute cardiopulmonary abnormality is seen. 2. Right foot xray 02/26/2025: Osteomyelitis of the 1st metatarsal head/neck with intra-articular extension at the MTP joint. 3. Arterial doppler US 02/26/2025: Multifocal areas of high-grade 50-99% stenosis throughout the right lower extremity arterial vasculature. 4. Foot MRI 02/27/2025: 1. Full-thickness ulceration involving plantar aspect of 1st MTP joint with extensive midfoot and forefoot soft tissue cellulitis. No discrete drainable abscess collection. 2. Finding is consistent with osteomyelitis involving 1st metatarsal bone and 1st proximal phalanx as well as medial and lateral sesamoids of 1st metatarsal head with extensive marrow edema and bony erosive changes. Heterogeneous contrast enhancement in the area of edema is seen. 3. No other area of abnormal marrow signal. Susceptibility artifacts are noted in plantar aspect of 3rd toe. No other area of abnormal intraosseous enhancement. 4. No gross full-thickness extensor or flexor tendon rupture. No gross plantar foot muscle signal abnormalities. No enhancing soft tissue mass. 5. Lower extremity CTA 02/27/2025: 1. Severe high-grade stenosis of the bilateral superficial femoral and profunda femoris arteries, with patent but poor opacification of the right lower extremity triple-vessel runoff. The CTA is concordant with the right lower extremity arterial Doppler ultrasound findings. 2. 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 3. Right foot 1st ray osteomyelitis with likely superimposed cellulitis. Review of systems: No fever chills or changes in appetite No chest pains or palpitation No cough or shortness a breath No nausea vomiting diarrhea No urinary symptoms Physical exam: No acute distress HEENT unremarkable Heart and lungs clear Abdomen benign Right lower extremity bandaged Assessment and plan: 1. Infected Right 1st metatarsal diabetic ulcer with osteomyelitis, present on admission and active status post BKA 03/07 - Culturing Klebsiella oxytoca and Group g streptococcus - Stopped Cefepime, Vancomycin on 03/01, and continue with IV Ceftriaxone 2g IV q24hr -10 days of cefdinir after discharge p.o. 2. Severe PAD/chronic tobacco use/diabetic microvascular disease, present on admission and stable. - Not a candidate for vascular intervention per vascular surgery consultation x 2 -status post right BKA 3. Diabetes mellitus, type 2 / non-compliance with metformin, present on admission and stable. - increased to 26 U lantus daily on 03/01 and continue 5 U TID AC, will hold home oral agents at this time. - poor long-term control A1C 10.7 %, currently well-controlled in hospital with 4. Tobacco use disorder, present on admission and stable. - nicotine replacement. 5. Continuous opiate dependence, present on admission and stable. - continue Suboxone home regimen. 6. Chronic systolic heart failure with repeat echo revealed an EF of 35% and no wall motion abnormalities. -This is chronic and stable. PLAN: Code: Full, surrogate is patient's daughter DVT: Lovenox Time-Based Coding :: 35 minutes spent with patient and on the chart (including review of chart, obtaining history, exam, reviewing outside data, placing orders, documenting exam and treatment plan, and counseling patient). Exam Vital Signs (past 8 hours): Oxygen Delivery Method Room Air Oxygen Flow Rate 0 Objective Labs 03/08/25 04:37 03/08/25 04:37 [facility] Medical History Smoking addiction Diabetes CHF (congestive heart failure) Social History details: Ambulates with a prosthetic for a below-knee amputation on the left household members: none Smoking Status: Current every day smoker alcohol intake: never Assessment & Plan Time-Based Coding :: [TOTAL MINUTES] spent with patient and on the chart (including review of chart, obtaining history, exam, reviewing outside data, placing orders, documenting exam and treatment plan, and counseling patient) on [DATE]. Quality VTE Deep Vein Thrombosis/Pulmonary Embolism Present on Admission: No
[2025-03-10 20:00] VITALS: BP 131/60; PULSE 69; RESP 19; TEMP 35.7; O2SAT 97
[2025-03-10 20:44] VITALS: BP 131/60; PULSE 69
[2025-03-10] MEDS: diphenhydrAMINE 25 MG TABLET 50 MG PO (20:45)
[2025-03-10] MEDS: INSULIN GLARGINE 100 UNIT/ML 3ML PEN 26 UNIT SUBCUT (20:50)
[2025-03-10] MEDS: cefTRIAXone 2,000 MG in SODIUM CHLORIDE 0.9% 100 ML 200 MG IV (22:43)
[2025-03-11] MEDS: BUPRENORPHINE/NALOXONE 8MG/2MG 1 TAB SL ×2 (04:03→15:43)
[2025-03-11] MEDS: ENOXAPARIN 40 MG/0.4 ML SYRINGE SUBCUT (08:16)
[2025-03-11] MEDS: GABAPENTIN 300 MG CAPSULE PO ×3 (08:17→21:46)
[2025-03-11] MEDS: methocarbamoL 500 MG TABLET PO ×2 (08:17→12:25)
[2025-03-11] MEDS: HYDROMORPHONE 0.5 MG INJ 1 MG IV ×4 (08:17→19:42)
[2025-03-11 08:18] VITALS: PULSE 80
[2025-03-11] MEDS: carvediloL 3.125 MG TABLET PO ×2 (08:18→21:45)
[2025-03-11] MEDS: ACETAMINOPHEN 325 MG TABLET 650 MG PO ×2 (08:19→15:43)
[2025-03-11] MEDS: INSULIN LISPRO 100 UNIT/ML 3ML VIAL SUBCUT ×4 (08:50→17:12)
[2025-03-11] MEDS: SODIUM CHLORIDE 0.9% FLUSH 10 ML IV ×2 (08:50→19:47)
--- NOTE | 2025-03-11 10:36 | OT.IP.TRT ---
Current Diagnoses Sepsis, unspecified organism (02/26/25) Type 2 diabetes mellitus with foot ulcer (02/26/25) Type 2 diabetes mellitus without complications (02/26/25) Nicotine dependence, unspecified, uncomplicated (02/26/25) Peripheral vascular disease, unspecified (02/26/25) Cellulitis of unspecified part of limb (02/26/25) Non-pressure chronic ulcer of other part of unspecified foot with unspecified severity (02/26/25) Non-pressure chronic ulcer of other part of right foot with necrosis of bone (02/26/25) Non-pressure chronic ulcer of unspecified part of unspecified lower leg with unspecified severity (02/26/25) Chronic osteomyelitis with draining sinus, right ankle and foot (02/26/25) Osteomyelitis, unspecified (02/26/25) Surgery Performed Operation Date: 03/06/25 15:15 Actual Procedures p Below knee amputation(Right) - Joi Acevedo MD Occupational Therapy Treatment Note M2 OT-IP Current Condition Start: 03/07/25 14:34 Freq: Status: Active Protocol: Document 03/07/25 14:35 CCC (Rec: 03/07/25 14:57 [facility] Desktop) Occupational Therapy Current Condition Current Condition Evaluation Date 03/07/25 Treatment Diagnosis S/P R BKA Weight Bearing Status Weight Bearing Status Non-Weight Bearing Allowed Weight Bearing Amount (enter % Nwb to RLE or #) (%) M3 OT- IP Subjective and Pain Start: 03/07/25 14:34 Freq: Status: Active Protocol: Document 03/11/25 12:25 CGR (Rec: 03/11/25 12:34 [facility] Desktop) OT- Subjective Occupational Therapy Visit Type Type Initial Evaluation Visit Start Time 10:13 Visit Stop Time 10:36 OT Pain Assessment Pain When Pain Assessed At Rest Pain Present Pain Present Pain Reported Location Right Leg Intensity 6 Scale Used Numeric (0 - 10) Management Techniques Modification of Treatment,Re- positioning M4 OT- IP ADL's Start: 03/07/25 14:34 Freq: Status: Active Protocol: Document 03/11/25 12:25 CGR (Rec: 03/11/25 12:34 CGR Desktop) OT [id number] Comments OT Self-Feeding Comments not meal time OT ADL-Grooming General Evaluation Grooming Ability Independent Areas Needing Assistance Retrieving/Set-up of Grooming Items,Face Washing Comments OT Grooming Comments seated at sink OT ADL-Oral Care General Eval Oral Care Ability Independent Areas of Assistance Brushing Teeth Comments Oral Care Comments seated at sink OT ADL-Dressing General Eval Upper Body Dressing Ability Independent Comments OT Dressing Comments hospital gown donned seated in chair. OT ADL-Toileting Comments OT Toileting Comments not performed OT ADL-Bathing Bathing Type Bathing Type Sponge Bath General Evaluation Bathing Ability Independent Areas Needing Assistance Wash/Dry Back Comments OT Bathing Comments seated in chair at sink M5 OT- IP IADL's Start: 03/07/25 14:34 Freq: Status: Active Protocol: Document 03/07/25 14:35 CCC (Rec: 03/07/25 14:57 [facility] Desktop) OT-Instrumental Activities of Daily Living Home Safety Awareness Awareness of Need for Assistance at Home Good Awareness Meal Preparation Meal Preparation Comments Pt will need assist. Regional Clinical Director Regional Clinical Director Comments Pt will benefit from asisst. M6 OT- IP Functional Cognition Start: 03/07/25 14:34 Freq: Status: Active Protocol: Document 03/07/25 14:35 CCC (Rec: 03/07/25 14:57 [facility] Desktop) Cognitive Factors Limiting Selfcare Function Cognitive Ability Level of Alertness Alert Patient Orientation Name,Place,Situation Attention Span Ability Capable of Focused Attention, Capable of Sustained Attention Ability to Follow Commands Able to Follow Multi-Step Commands Cognitive Comments Cognitive Assessment Comments Pt able to follow commands commands for ADL and mobility needs. OT- Vision and Hearing OT- Hearing Assessment OT- Hearing Assessment WFL M7 OT- IP Mobility and Balance Start: 03/07/25 14:34 Freq: Status: Active Protocol: Document 03/11/25 12:25 CGR (Rec: 03/11/25 12:34 CGR Desktop) OT-Transfer Assessment Sit to and From Stand Sit to and from Stand Contact Guard Assistance Technique Transfer Destination Chair Transfer Technique Stand Step Pivot Comments Mobility Comments Pt stood at chair for ~30 seconds. OT- Gait Assessment Comments Gait Ability Comments not performed OT- Balance Assessment Sitting Balance and Reactions Static Sitting Balance Ability Good M8 OT- IP Objective Assessments Start: 03/07/25 14:34 Freq: Status: Active Protocol: Document 03/07/25 14:35 CCC (Rec: 03/07/25 14:57 CCC Desktop) OT Gross Range of Motion Upper Extremity Range of Motion Assessment Within Functional Limits OT Strength Upper Extremity Strength Assessment Within Functional Limits M9 OT- IP Assessment and Plan Start: 03/07/25 14:34 Freq: Status: Active Protocol: Document 03/11/25 12:25 CGR (Rec: 03/11/25 12:34 [facility] Desktop) OT Summary Assessment and Plan Potential Rehabilitation Potential Good Analytic Complexity at Evaluation Moderate Summary OT Impairments Pain,Strength,Balance, Functional Mobility,Dressing, Toileting,Bathing,Toilet Transfers,Shower Transfers Progress Towards Goals Progressing Toward Goals Assessment Summary Pt MOD complexity and main barriers are pain, NWB for RLE , and decreased balance. Pt with good participation on this date with seated ADLs at sink and then sit to stand at chair. Pt is currently requesting to go home with support from pt's roommate. Pt would likely still benefit from SNF. Goals Self-Feeding Goal Independent Grooming Goal Independent Dressing Goal Independent Toileting Goal Independent Bathing Goal Standby Assistance Toilet Transfer Goal Independent Shower Transfer Goal Independent Days to Meet Goals 15 Frequency of Treatment Other frequency 5x/week Treatment Plan OT Treatment Plan ADL Training,Functional Mobility,Patient/Family Education,Discharge Planning Other Treatment Recommendations and Next When able to get his left shoe Treatment Focus , transfer with FWW to C with CGA. Discharge Recommendations OT Discharge Recommendations SNF Rehab Transportation Needs at Discharge Wheelchair/Cabulance
--- NOTE | 2025-03-11 12:47 | CM.DPNOTE ---
DCP note DOMESTIC LAUNDRY WORKER reviewed EMR DOMESTIC LAUNDRY WORKER emailed Petrona at [facility] with ins auth updates, no response as of 1245. will continue to follow closely/send updated clinicals as completed in EMR. OT continues to rec SNF. DOMESTIC LAUNDRY WORKER met with pt in room. DOMESTIC LAUNDRY WORKER answered questions about HAO topher to best of ability, pt will complete it and let this DOMESTIC LAUNDRY WORKER know when finished to fax it in for him. DOMESTIC LAUNDRY WORKER updated him on ins auth pending for [facility]. pt may change mind for home. open to HH if ins would auth (only contracted HH in [place] is [facility]?). if HH, referral needed. pt would be open to coming here for OP wound care appts. roommate could transport. DOMESTIC LAUNDRY WORKER answered other questions to best of abiltiy. P: pending ins auth/pt preference. CSV pending auth, PASRR previously completed. will fax HAO topher when completed. may change mind for home with HH- send ref to [facility] for review. will continue to follow closely for DCP coordination POPEYE Sanchez
--- NOTE | 2025-03-11 13:12 | PM.PN.1 ---
Subjective Subjective Date Patient Seen: 03/11/25 Interval history: Chief complaint: Right lower leg gangrene osteomyelitis with pain History of present illness: 59 M with PMH of DM2, HTN, CHFpEF (EF 42% 09/2023), PAD, prior L BKA (09/2023), opiate use disorder on suboxone who presents for worsening ulceration of his R lower leg for the last severeal months. Orthopedic provider currently plan for BKA next week on 03/06. Hospital course: 03/01: The patient has no new complaints. Blood sugars are in the 200-300 range. 03/02: No new issues. He has no complaints. Blood sugars in the 170s to 200 range. 03/03: No new complaints. Right leg wound cleaned by Orthopedics yesterday. Blood sugars in the 140s to 150s range. 03/04-: Stable, on IV antibiotics, awaiting BKA. 03/06: Underwent right BKA without any postoperative complications 03/07: No fevers or chills pain medicines being adjusted for adequate analgesia 03/08: Patient responding better to oxycodone orally then Dilaudid orally for pain no fevers or chills 03/09: Pain is significantly better patient requires 2 person assist per physical therapy yesterday had discussion patient is reluctantly agreeing that rehab is necessary preparations made for discharge and planning for 10 days of oral cefdinir after discharge 03/10: Penicillin difficulty better patient is working with PT awaiting insurance authorization to discharge to rehab Objective findings: Imaging Multiple studies: : Radiologist's impression: 1. Chest xray 02/26/2025: No acute cardiopulmonary abnormality is seen. 2. Right foot xray 02/26/2025: Osteomyelitis of the 1st metatarsal head/neck with intra-articular extension at the MTP joint. 3. Arterial doppler US 02/26/2025: Multifocal areas of high-grade 50-99% stenosis throughout the right lower extremity arterial vasculature. 4. Foot MRI 02/27/2025: 1. Full-thickness ulceration involving plantar aspect of 1st MTP joint with extensive midfoot and forefoot soft tissue cellulitis. No discrete drainable abscess collection. 2. Finding is consistent with osteomyelitis involving 1st metatarsal bone and 1st proximal phalanx as well as medial and lateral sesamoids of 1st metatarsal head with extensive marrow edema and bony erosive changes. Heterogeneous contrast enhancement in the area of edema is seen. 3. No other area of abnormal marrow signal. Susceptibility artifacts are noted in plantar aspect of 3rd toe. No other area of abnormal intraosseous enhancement. 4. No gross full-thickness extensor or flexor tendon rupture. No gross plantar foot muscle signal abnormalities. No enhancing soft tissue mass. 5. Lower extremity CTA 02/27/2025: 1. Severe high-grade stenosis of the bilateral superficial femoral and profunda femoris arteries, with patent but poor opacification of the right lower extremity triple-vessel runoff. The CTA is concordant with the right lower extremity arterial Doppler ultrasound findings. 2. 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 3. Right foot 1st ray osteomyelitis with likely superimposed cellulitis. Review of systems: No fever chills or changes in appetite No chest pains or palpitation No cough or shortness a breath No nausea vomiting diarrhea No urinary symptoms Physical exam: No acute distress HEENT unremarkable Heart and lungs clear Abdomen benign Right lower extremity bandaged Assessment and plan: 1. Infected Right 1st metatarsal diabetic ulcer with osteomyelitis, present on admission and active status post BKA 03/07 - Culturing Klebsiella oxytoca and Group g streptococcus -discontinue IV antibiotics -10 days of cefdinir after discharge p.o. 2. Severe PAD/chronic tobacco use/diabetic microvascular disease, present on admission and stable. - Not a candidate for vascular intervention per vascular surgery consultation x 2 -status post right BKA 3. Diabetes mellitus, type 2 / non-compliance with metformin, present on admission and stable. - increased to 26 U lantus daily on 03/01 and continue 5 U TID AC, will hold home oral agents at this time. - poor long-term control A1C 10.7 %, currently well-controlled in hospital with 4. Tobacco use disorder, present on admission and stable. - nicotine replacement. 5. Continuous opiate dependence, present on admission and stable. - continue Suboxone home regimen. 6. Chronic systolic heart failure with repeat echo revealed an EF of 35% and no wall motion abnormalities. -This is chronic and stable. PLAN: Code: Full, surrogate is patient's daughter DVT: Lovenox Time-Based Coding :: 35 minutes spent with patient and on the chart (including review of chart, obtaining history, exam, reviewing outside data, placing orders, documenting exam and treatment plan, and counseling patient). Exam Vital Signs (past 8 hours): - 03/11/25 08:18 Pulse Rate 80 Oxygen Delivery Method Room Air Oxygen Flow Rate 0 Objective Labs 03/08/25 04:37 03/08/25 04:37 [facility] Medical History Smoking addiction Diabetes CHF (congestive heart failure) Social History details: Ambulates with a prosthetic for a below-knee amputation on the left household members: none Smoking Status: Current every day smoker alcohol intake: never Assessment & Plan Time-Based Coding :: [TOTAL MINUTES] spent with patient and on the chart (including review of chart, obtaining history, exam, reviewing outside data, placing orders, documenting exam and treatment plan, and counseling patient) on [DATE]. Quality VTE Deep Vein Thrombosis/Pulmonary Embolism Present on Admission: No
--- NOTE | 2025-03-11 13:30 | PT.IPTN ---
Current Diagnoses Sepsis, unspecified organism (02/26/25) Type 2 diabetes mellitus with foot ulcer (02/26/25) Type 2 diabetes mellitus without complications (02/26/25) Nicotine dependence, unspecified, uncomplicated (02/26/25) Peripheral vascular disease, unspecified (02/26/25) Cellulitis of unspecified part of limb (02/26/25) Non-pressure chronic ulcer of other part of unspecified foot with unspecified severity (02/26/25) Non-pressure chronic ulcer of other part of right foot with necrosis of bone (02/26/25) Non-pressure chronic ulcer of unspecified part of unspecified lower leg with unspecified severity (02/26/25) Chronic osteomyelitis with draining sinus, right ankle and foot (02/26/25) Osteomyelitis, unspecified (02/26/25) Surgery Performed Operation Date: 03/06/25 15:15 Actual Procedures p Below knee amputation(Right) - Joi Acevedo MD Physical Therapy Treatment Note M2 PT-IP Current Condition Start: 03/07/25 13:53 Freq: NEEDED Status: Active Protocol: Document 03/11/25 13:10 SP (Rec: 03/11/25 14:23 SP [id number]) Physical Therapy Current Condition Current Condition Evaluation Date 03/07/25 Treatment Diagnosis right BKA, impaired mobility/ gait Onset Date 03/06/25 M3 PT-IP Subjective Start: 03/07/25 13:53 Freq: NEEDED Status: Active Protocol: Document 03/11/25 13:10 SP (Rec: 03/11/25 14:23 SP [id number]) Subjective Physical Therapy Visit Type Type Treatment Note Visit Start Time 13:10 Visit Stop Time 13:30 Notes NAKUL Harrell assisted with physical support during tx as 2nd person needed with permission of pt and under direction supervision of NGHIA Oconnor. Number of INCIDENT HANDLER Visits 1 Physical Therapy Visit Comments Patient Comments Pt agreeable to working with PT. Therapy Pain Assessment Pain When Pain Assessed During Mobility Pain Present Pain Present Pain Reported Location L leg Scale Used medial L knee during WB- no scale rating given Description With Movement Pain Behaviors Facial Grimacing Pain Management Techniques Distraction,Modification of Treatment,Re-positioning, Timing of Activity with Medications Right Leg Intensity 6 Scale Used Numeric (0 - 10)-reports mainly dangling R knee flexion between transfers. Description Aching,Pressure,Throbbing,With Movement Pain Behaviors Facial Grimacing,Holding Area Pain Management Techniques Distraction,Elevation, Modification of Treatment,Re- positioning,Timing of Activity with Medications back Intensity 0 Scale Used low level pain (no scale rate given) in standing with FWW Description With Movement Pain Behaviors Facial Grimacing Pain Management Techniques Distraction,Modification of Treatment,Re-positioning, Timing of Activity with Medications M4 PT-IP Mobility and Gait Start: 03/07/25 13:53 Freq: NEEDED Status: Active Protocol: Document 03/11/25 13:10 SP (Rec: 03/11/25 14:23 SP [id number]) PT-Transfer Assessment Sit to and From Stand Sit to and from Stand Moderate Assistance,Maximum Assistance,2 Person Assistance ,Use of Upper Extremities Equipment Transfer Assistive Device Gait Belt,Front Wheeled Walker Orthotic/Prosthetic Devices or Brace: Yes Transfers Transfer Destination Chair,Wheelchair Transfer Technique Stand Pivot & Squat Pivot Transfers Transfer Ability Level of Assist Moderate Assistance,Maximum Assistance,2 Person Assistance ,Use of Upper Extremities Comments Mobility Comments Pt up in chair B BKA supported R on pillow when arrived. Pt self donned his L prosthetic seated in chair. Heavy UE WB on chair arms sit to stand to FWW, successful 2nd attempt Mod & Max A x2, static stand for about 15 sec before need sit due to L medial knee discomfort and weak, noted L knee shifts medially in standing, cues for lateral shift and TKE quad contraction . Cues for upright posture, but challenge due to tight L knee flexion, reports limited back extension due to pain. INCIDENT HANDLER education for L prosthetic knee flexion with foot little closer to chair, pushes from chair arms then R and L arms to FWW, stand pivot L to w/c with prosthetic foot pivot on nonskid sock best (sneaker doesn't pivot well), Mod A x1- 2 during pivot and slow sit chair<> w/c with support at trunk gait belt. Pt was able to complete squat pivot transfer, mode usually does home, Min/Mod A x1 with cues and support as needed for L prosthetic foot positioning before standing best. Pt was able to reclined self in chair fully, instructed LLE quad set, SLR with prosthetic and SL bridge to progress strengthening due to noted L knee medial pain tends to vier medially during transfer. He improved L knee midline and muscle contraction decrease pain. Pt had all knees, call light in reach before left. Gait Assessment Comments Gait Comments Transfers only. Stair Climbing Assessment Comments Stair Climbing Comments no stairs, ramp to mobile home . PT-Balance Assessment Sitting Balance and Reactions Static Sitting Balance Ability Normal Dynamic Sitting Balance Ability Good Standing Balance and Reactions Static Standing Balance Ability Poor Dynamic Standing Balance Ability Poor Device Used FWW M5 PT-IP Objective Assessments Start: 03/07/25 13:53 Freq: NEEDED Status: Active Protocol: Document 03/07/25 12:27 [facility] (Rec: 03/07/25 14:41 [facility] Desktop) Orientation Orientation/Cognition Level of Alertness Alert Orientation Name,Age,Birthday,Month,Date, Year,Day of Week,Place, Situation Language Function Ability No Deficits Noted Safety Awareness Understands Safety Issues Memory Description No Deficits Noted Gross Range of Motion Upper Extremity ROM Assessment Within Functional Limits Lower Extremity ROM Assessment Within Functional Limits Impairments mild hamstring tightness left LE but can fully extend his knee in supine right knee in post-op splint so can not flex Strength Upper Extremity Strength Assessment Within Functional Limits Lower Extremity Strength Assessment Right Impaired Knee unable due to post-op splint Ankle NA bilaterally Comments Strength Comments pt moving right LE functionally Coordination Assessment Gross Coordination Gross Coordination WNL Sensation Assessment Comments Sensation Comments 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 with numbness, he denies numbness in hands Muscle Tone Muscle Tone WNL Yes M6 PT-IP Treatment Start: 03/07/25 13:53 Freq: NEEDED Status: Active Protocol: Document 03/11/25 13:10 SP (Rec: 03/11/25 14:23 SP [id number]) Physical Therapy Treatment Other Treatments Other Treatment Performed see ther ex instruction mobility comments for LLE strength, support transfers. M7 PT-IP Assessment and Plan Start: 03/07/25 13:53 Freq: NEEDED Status: Active Protocol: Document 03/11/25 13:10 SP (Rec: 03/11/25 14:23 SP [id number]) PT Summary Assessment and Plan Potential Rehabilitation Potential Fair Status of Condition at Evaluation Evolving Summary Impairments Pain,ROM,Strength,Balance, Coordination,Sensation,Bed Mobility,Transfers,Gait, Activity Tolerance Progress Towards Goals Progressing Toward Goals Assessment Summary Mod/Max A 2 persons stand pivot transfer with FWW, Min/ Mod A squat pivot transfer with no AD chair<> w/c tx today. INCIDENT HANDLER discusseion with pt benefits of SNF for progress strength increased time daily vs HHPT at home. Pt states will do what his insurance will cover. Pt would benefit continued skilled therapy for LLE strength , R LE AROM for transfers SNF vs HHPT with 24/ 7 assist of roomate hoping to become paid caregiver when medically cleared to DC. Goals Bed Mobility Goal Independent Transfer Goal Standby Assistance Other Goals SPT to the left Pt will transfer to and from bed, chair, w/c and w/c to toilet with no more than SBA. PT asks pt to have his roommate bring in his w/c from home. Pt will mobilize at least 50' with I in his w/c. Days to Meet Goals 5 Frequency of Treatment Frequency Of Treatment Once a Day Treatment Plan Physical Therapy Treatment Plan Bed Mobility Training,Transfer Training,Therapeutic Exercise ,Balance Retraining,Post Op Education,Discharge Planning, Hot or Cold Pack,Neuromuscular Re-ed,Coordination Retraining ,Manual Therapy Other Recommendations and Next Treatment Follow-up about getting his w/ Focus c in to hospital for better mobility practice, w/c mobility, continue use IH w/c during transfer if home not here. Precautions Other Precautions Fall risk, left prosthesis Weight Bearing Status Allowed Weight Bearing Amount (enter % NWB on RLE s/p BKA or #) (%) Recommendations To Nursing Amount of Assist Needed 1 Person Assist Discharge Recommendations PT Discharge Recommendations Home with 24/ Assist Available,Home Health,Home vs SNF Transportation Needs at Discharge Private Vehicle - PT assist x1
[2025-03-11 19:00] VITALS: BP 118/65; PULSE 73; RESP 18; TEMP 36.1; O2SAT 97
[2025-03-11] MEDS: diphenhydrAMINE 25 MG TABLET 50 MG PO (19:45)
--- NOTE | 2025-03-11 19:59 | PC.NURSE ---
Pt currently seating in the recliner chair with a waffle cushion in place. pt instructed to shift his possition while in the chair. pt not sure wether he would sleep in the chair or bed tonight.
[2025-03-11] MEDS: cefTRIAXone 2,000 MG in SODIUM CHLORIDE 0.9% 100 ML 200 MG IV (21:46)
[2025-03-11] MEDS: INSULIN GLARGINE 100 UNIT/ML 3ML PEN 26 UNIT SUBCUT (21:47)
[2025-03-12] MEDS: ACETAMINOPHEN 325 MG TABLET 650 MG PO ×3 (02:35→21:34)
[2025-03-12] MEDS: HYDROMORPHONE 0.5 MG INJ 1 MG IV ×5 (02:35→21:33)
[2025-03-12] MEDS: methocarbamoL 500 MG TABLET PO ×3 (02:35→21:34)
[2025-03-12] MEDS: BUPRENORPHINE/NALOXONE 8MG/2MG 1 TAB SL ×2 (03:46→16:25)
[2025-03-12 08:17] VITALS: BP 119/64; PULSE 69; RESP 16; TEMP 36.9; O2SAT 95
--- NOTE | 2025-03-12 08:30 | PM.PN.1 ---
Subjective Subjective Date Patient Seen: 03/12/25 Interval history: Chief complaint: Right lower leg gangrene osteomyelitis with pain History of present illness: 59 M with PMH of DM2, HTN, CHFpEF (EF 42% 09/2023), PAD, prior L BKA (09/2023), opiate use disorder on suboxone who presents for worsening ulceration of his R lower leg for the last severeal months. Orthopedic provider currently plan for BKA next week on 03/06. Hospital course: 03/01: The patient has no new complaints. Blood sugars are in the 200-300 range. 03/02: No new issues. He has no complaints. Blood sugars in the 170s to 200 range. 03/03: No new complaints. Right leg wound cleaned by Orthopedics yesterday. Blood sugars in the 140s to 150s range. 03/04-: Stable, on IV antibiotics, awaiting BKA. 03/06: Underwent right BKA without any postoperative complications 03/07: No fevers or chills pain medicines being adjusted for adequate analgesia 03/08: Patient responding better to oxycodone orally then Dilaudid orally for pain no fevers or chills 03/09: Pain is significantly better patient requires 2 person assist per physical therapy yesterday had discussion patient is reluctantly agreeing that rehab is necessary preparations made for discharge and planning for 10 days of oral cefdinir after discharge 03/10: Pain control is better patient is working with PT awaiting insurance authorization to discharge to rehab 03/11: Pain control is better patient is working with PT awaiting insurance authorization to discharge to rehab 03/12: Pain control is better patient is working with PT awaiting insurance authorization to discharge to rehab Objective findings: Imaging Multiple studies: : Radiologist's impression: 1. Chest xray 02/26/2025: No acute cardiopulmonary abnormality is seen. 2. Right foot xray 02/26/2025: Osteomyelitis of the 1st metatarsal head/neck with intra-articular extension at the MTP joint. 3. Arterial doppler US 02/26/2025: Multifocal areas of high-grade 50-99% stenosis throughout the right lower extremity arterial vasculature. 4. Foot MRI 02/27/2025: 1. Full-thickness ulceration involving plantar aspect of 1st MTP joint with extensive midfoot and forefoot soft tissue cellulitis. No discrete drainable abscess collection. 2. Finding is consistent with osteomyelitis involving 1st metatarsal bone and 1st proximal phalanx as well as medial and lateral sesamoids of 1st metatarsal head with extensive marrow edema and bony erosive changes. Heterogeneous contrast enhancement in the area of edema is seen. 3. No other area of abnormal marrow signal. Susceptibility artifacts are noted in plantar aspect of 3rd toe. No other area of abnormal intraosseous enhancement. 4. No gross full-thickness extensor or flexor tendon rupture. No gross plantar foot muscle signal abnormalities. No enhancing soft tissue mass. 5. Lower extremity CTA 02/27/2025: 1. Severe high-grade stenosis of the bilateral superficial femoral and profunda femoris arteries, with patent but poor opacification of the right lower extremity triple-vessel runoff. The CTA is concordant with the right lower extremity arterial Doppler ultrasound findings. 2. 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 3. Right foot 1st ray osteomyelitis with likely superimposed cellulitis. Review of systems: No fever chills or changes in appetite No chest pains or palpitation No cough or shortness a breath No nausea vomiting diarrhea No urinary symptoms Physical exam: No acute distress HEENT unremarkable Heart and lungs clear Abdomen benign Right lower extremity bandaged Assessment and plan: 1. Infected Right 1st metatarsal diabetic ulcer with osteomyelitis, present on admission and active status post BKA 03/07 - Culturing Klebsiella oxytoca and Group g streptococcus -discontinued IV antibiotics -5 days of cefdinir after discharge p.o. 2. Severe PAD/chronic tobacco use/diabetic microvascular disease, present on admission and stable. - Not a candidate for vascular intervention per vascular surgery consultation x 2 -status post right BKA 3. Diabetes mellitus, type 2 / non-compliance with metformin, present on admission and stable. - increased to 26 U lantus daily on 03/01 and continue 5 U TID AC, will hold home oral agents at this time. - poor long-term control A1C 10.7 %, currently well-controlled in hospital with 4. Tobacco use disorder, present on admission and stable. - nicotine replacement. 5. Continuous opiate dependence, present on admission and stable. - continue Suboxone home regimen. 6. Chronic systolic heart failure with repeat echo revealed an EF of 35% and no wall motion abnormalities. -This is chronic and stable. PLAN: Code: Full, surrogate is patient's daughter DVT: Lovenox Time-Based Coding :: 25 minutes spent with patient and on the chart (including review of chart, obtaining history, exam, reviewing outside data, placing orders, documenting exam and treatment plan, and counseling patient). Exam Vital Signs (past 8 hours): - 03/12/25 08:17 Temperature 98.4 F Pulse Rate 69 Respiratory Rate 16 Blood Pressure 119/64 Pulse Oximetry 95 Oxygen Delivery Method Room Air Oxygen Flow Rate 0 Objective Labs 03/08/25 04:37 03/08/25 04:37 [facility] Medical History Smoking addiction Diabetes CHF (congestive heart failure) Social History details: Ambulates with a prosthetic for a below-knee amputation on the left household members: none Smoking Status: Current every day smoker alcohol intake: never Assessment & Plan Time-Based Coding :: [TOTAL MINUTES] spent with patient and on the chart (including review of chart, obtaining history, exam, reviewing outside data, placing orders, documenting exam and treatment plan, and counseling patient) on [DATE]. Quality VTE Deep Vein Thrombosis/Pulmonary Embolism Present on Admission: No
[2025-03-12] MEDS: INSULIN LISPRO 100 UNIT/ML 3ML VIAL SUBCUT ×7 (08:45→21:35)
[2025-03-12] MEDS: GABAPENTIN 300 MG CAPSULE PO ×3 (08:58→21:33)
[2025-03-12 08:59] VITALS: BP 119/64; PULSE 67
[2025-03-12] MEDS: carvediloL 3.125 MG TABLET PO ×2 (08:59→21:34)
[2025-03-12] MEDS: ENOXAPARIN 40 MG/0.4 ML SYRINGE SUBCUT (09:00)
[2025-03-12] MEDS: SODIUM CHLORIDE 0.9% FLUSH 10 ML IV (09:04)
--- NOTE | 2025-03-12 10:32 | OT.IP.TRT ---
Current Diagnoses Sepsis, unspecified organism (02/26/25) Type 2 diabetes mellitus with foot ulcer (02/26/25) Type 2 diabetes mellitus without complications (02/26/25) Nicotine dependence, unspecified, uncomplicated (02/26/25) Peripheral vascular disease, unspecified (02/26/25) Cellulitis of unspecified part of limb (02/26/25) Non-pressure chronic ulcer of other part of unspecified foot with unspecified severity (02/26/25) Non-pressure chronic ulcer of other part of right foot with necrosis of bone (02/26/25) Non-pressure chronic ulcer of unspecified part of unspecified lower leg with unspecified severity (02/26/25) Chronic osteomyelitis with draining sinus, right ankle and foot (02/26/25) Osteomyelitis, unspecified (02/26/25) Surgery Performed Operation Date: 03/06/25 15:15 Actual Procedures p Below knee amputation(Right) - Joi Aecvedo MD Occupational Therapy Treatment Note M2 OT-IP Current Condition Start: 03/07/25 14:34 Freq: Status: Active Protocol: Document 03/07/25 14:35 [facility] (Rec: 03/07/25 14:57 [facility] Desktop) Occupational Therapy Current Condition Current Condition Evaluation Date 03/07/25 Treatment Diagnosis S/P R BKA Weight Bearing Status Weight Bearing Status Non-Weight Bearing Allowed Weight Bearing Amount (enter % Nwb to RLE or #) (%) M3 OT- IP Subjective and Pain Start: 03/07/25 14:34 Freq: Status: Active Protocol: Document 03/12/25 10:48 [facility] (Rec: 03/12/25 10:56 [facility] Desktop) OT- Subjective Occupational Therapy Visit Type Type Treatment Note Visit Start Time 10:32 Visit Stop Time 10:40 Occupational Therapy Visit Comments Patient Comments Pt states just got up earlier and state is concerned that no one has looked at his tight leg after his surgery. Notified pt's nurse and she states will take down his dressing and look at his leg today. Patient/Caregiver Goals Pt feels that he could possibly be able to go home. OT Pain Assessment Pain When Pain Assessed During Mobility Pain Present Pain Present Pain Reported Location L leg Pain Behaviors Holding Area M4 OT- IP ADL's Start: 03/07/25 14:34 Freq: Status: Active Protocol: Document 03/12/25 10:48 [facility] (Rec: 03/12/25 10:56 [facility] Desktop) OT [id number] Comments OT Self-Feeding Comments Not at meal time. OT ADL-Grooming Comments OT Grooming Comments Pt states did prior. OT ADL-Oral Care Comments Oral Care Comments Pt states did prior. OT ADL-Dressing Comments OT Dressing Comments Pt has been able to leeann/doff his prosthesis on his own. Pt is aware easier to dress while supine in bed. OT ADL-Toileting Comments OT Toileting Comments Pt looking to get a BSC to home use as wc will not fit into his bathroom and that he does not feel comfortable to walk on his left prosthesis as it does not fit properly per pt. Suggested pt contact his vendor. M5 OT- IP IADL's Start: 03/07/25 14:34 Freq: Status: Active Protocol: Document 03/07/25 14:35 [facility] (Rec: 03/07/25 14:57 [facility] Desktop) OT-Instrumental Activities of Daily Living Home Safety Awareness Awareness of Need for Assistance at Home Good Awareness Meal Preparation Meal Preparation Comments Pt will need assist. Specialty Food Products Supervisor Specialty Food Products Supervisor Comments Pt will benefit from asisst. M6 OT- IP Functional Cognition Start: 03/07/25 14:34 Freq: Status: Active Protocol: Document 03/07/25 14:35 [facility] (Rec: 03/07/25 14:57 [facility] Desktop) Cognitive Factors Limiting Selfcare Function Cognitive Ability Level of Alertness Alert Patient Orientation Name,Place,Situation Attention Span Ability Capable of Focused Attention, Capable of Sustained Attention Ability to Follow Commands Able to Follow Multi-Step Commands Cognitive Comments Cognitive Assessment Comments Pt able to follow commands commands for ADL and mobility needs. OT- Vision and Hearing OT- Hearing Assessment OT- Hearing Assessment WFL M7 OT- IP Mobility and Balance Start: 03/07/25 14:34 Freq: Status: Active Protocol: Document 03/11/25 12:25 [facility] (Rec: 03/11/25 12:34 [facility] Desktop) OT-Transfer Assessment Sit to and From Stand Sit to and from Stand Contact Guard Assistance Technique Transfer Destination Chair Transfer Technique Stand Step Pivot Comments Mobility Comments Pt stood at chair for ~30 seconds. OT- Gait Assessment Comments Gait Ability Comments not performed OT- Balance Assessment Sitting Balance and Reactions Static Sitting Balance Ability Good M8 OT- IP Objective Assessments Start: 03/07/25 14:34 Freq: Status: Active Protocol: Document 03/07/25 14:35 [facility] (Rec: 03/07/25 14:57 [facility] Desktop) OT Gross Range of Motion Upper Extremity Range of Motion Assessment Within Functional Limits OT Strength Upper Extremity Strength Assessment Within Functional Limits M9 OT- IP Assessment and Plan Start: 03/07/25 14:34 Freq: Status: Active Protocol: Document 03/12/25 10:48 [facility] (Rec: 03/12/25 10:56 [facility] Desktop) OT Summary Assessment and Plan Potential Rehabilitation Potential Good Analytic Complexity at Evaluation Moderate Summary Progress Towards Goals Progressing Toward Goals Assessment Summary Pt feels that he can make do at home with assist and mainly will need to get a [facility] for home use. Pt's states left prosthesis does not fit properly and would benefit from pt to contact the vendor to seek out adjustments. Pt to go to skilled rehab versus home with assist. Goals Self-Feeding Goal Independent Grooming Goal Independent Dressing Goal Independent Toileting Goal Independent Bathing Goal Standby Assistance Toilet Transfer Goal Independent Shower Transfer Goal Independent Days to Meet Goals 10 Frequency of Treatment Other frequency 5x/week Treatment Plan OT Treatment Plan ADL Training,Functional Mobility,Patient/Family Education,Discharge Planning Other Treatment Recommendations and Next Transfer to [facility] indepently. Treatment Focus Discharge Recommendations OT Discharge Recommendations Home with Assistance,Home Health,SNF Rehab,Home vs SNF Transportation Needs at Discharge Private Vehicle,Wheelchair/ Cabulance
--- NOTE | 2025-03-12 12:20 | PT-IP ANOTE ---
checked on pt and refused PT this morning and stated that he is in the middle of taking care of stuffs for d/c for him. agreed to do PT this afternoon.
--- NOTE | 2025-03-12 14:10 | PT.IPTN ---
Current Diagnoses Sepsis, unspecified organism (02/26/25) Type 2 diabetes mellitus with foot ulcer (02/26/25) Type 2 diabetes mellitus without complications (02/26/25) Nicotine dependence, unspecified, uncomplicated (02/26/25) Peripheral vascular disease, unspecified (02/26/25) Cellulitis of unspecified part of limb (02/26/25) Non-pressure chronic ulcer of other part of unspecified foot with unspecified severity (02/26/25) Non-pressure chronic ulcer of other part of right foot with necrosis of bone (02/26/25) Non-pressure chronic ulcer of unspecified part of unspecified lower leg with unspecified severity (02/26/25) Chronic osteomyelitis with draining sinus, right ankle and foot (02/26/25) Osteomyelitis, unspecified (02/26/25) Surgery Performed Operation Date: 03/06/25 15:15 Actual Procedures p Below knee amputation(Right) - Joi Acevedo MD Physical Therapy Treatment Note M2 PT-IP Current Condition Start: 03/07/25 13:53 Freq: NEEDED Status: Active Protocol: Document 03/11/25 13:10 SP (Rec: 03/11/25 14:23 SP [id number]) Physical Therapy Current Condition Current Condition Evaluation Date 03/07/25 Treatment Diagnosis right BKA, impaired mobility/ gait Onset Date 03/06/25 M3 PT-IP Subjective Start: 03/07/25 13:53 Freq: NEEDED Status: Active Protocol: Document 03/12/25 14:10 AB (Rec: 03/12/25 15:00 AB [id number]) Subjective Physical Therapy Visit Type Type Treatment Note Visit Start Time 14:10 Visit Stop Time 14:40 Number of WINDOW MACHINE OPERATOR Visits 0 Physical Therapy Visit Comments Patient Comments agreeable to do PT M4 PT-IP Mobility and Gait Start: 03/07/25 13:53 Freq: NEEDED Status: Active Protocol: Document 03/12/25 14:10 AB (Rec: 03/12/25 15:00 AB [id number]) PT-Transfer Assessment Equipment Transfer Assistive Device None,Gait Belt Orthotic/Prosthetic Devices or Brace: Yes Transfers Transfer Destination Bed,Chair,Wheelchair Transfer Technique Squat Pivot Transfer Ability Level of Assist Maximum Assistance,1 Person Assistance,2 Person Assistance ,Use of Upper Extremities Comments Mobility Comments pt sitting on the chair and agreeable to do PT. transfer training: educated on removing armrests of w/c and legrest positioning. chair to w/c max A and max cues. w/ c <>EOB x 2 reps going towards LLE and then towards RLE: max A x 1-2 and max cues. pt does not want to use shoes on prosthesis and prefers just the sock during transfers. pt required cues to be aware of L prosthesis sliding forward too much during transfers. pt understood. pt completed transfer from w/c to chair max A x 1-2 and cues. positioned pt on the chair. call light and table placed within reach. M5 PT-IP Objective Assessments Start: 03/07/25 13:53 Freq: NEEDED Status: Active Protocol: Document 03/07/25 12:27 DLM (Rec: 03/07/25 14:41 DLM Desktop) Orientation Orientation/Cognition Level of Alertness Alert Orientation Name,Age,Birthday,Month,Date, Year,Day of Week,Place, Situation Language Function Ability No Deficits Noted Safety Awareness Understands Safety Issues Memory Description No Deficits Noted Gross Range of Motion Upper Extremity ROM Assessment Within Functional Limits Lower Extremity ROM Assessment Within Functional Limits Impairments mild hamstring tightness left LE but can fully extend his knee in supine right knee in post-op splint so can not flex Strength Upper Extremity Strength Assessment Within Functional Limits Lower Extremity Strength Assessment Right Impaired Knee unable due to post-op splint Ankle NA bilaterally Comments Strength Comments pt moving right LE functionally Coordination Assessment Gross Coordination Gross Coordination WNL Sensation Assessment Comments Sensation Comments 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 with numbness, he denies numbness in hands Muscle Tone Muscle Tone WNL Yes M6 PT-IP Treatment Start: 03/07/25 13:53 Freq: NEEDED Status: Active Protocol: Document 03/12/25 14:10 AB (Rec: 03/12/25 15:00 AB [id number]) Physical Therapy Treatment Education Education Provided Safety M7 PT-IP Assessment and Plan Start: 03/07/25 13:53 Freq: NEEDED Status: Active Protocol: Document 03/12/25 14:10 AB (Rec: 03/12/25 15:00 AB [id number]) PT Summary Assessment and Plan Potential Rehabilitation Potential Fair Summary Impairments Pain,ROM,Strength,Balance, Coordination,Sensation,Bed Mobility,Transfers,Gait, Activity Tolerance Progress Towards Goals Slow Progress due to Medical Issues,Slow Progress due to Activity Tolerance,Slow Progress - Other Assessment Summary pt requiring max A x 1-2 and max cues for squat transfer. pt will require 24/7 assist and will benefit from SNF rehab. pt stated that his friend can assist him at home and prefers to go home. will continue to assess progress and if appropriate, will conduct caregiver training. Goals Bed Mobility Goal Independent Transfer Goal Standby Assistance Other Goals SPT to the left Pt will transfer to and from bed, chair, w/c and w/c to toilet with no more than SBA. PT asks pt to have his roommate bring in his w/c from home. Pt will mobilize at least 50' with I in his w/c. Days to Meet Goals 5 Frequency of Treatment Frequency Of Treatment Once a Day Treatment Plan Physical Therapy Treatment Plan Bed Mobility Training,Transfer Training,Therapeutic Exercise ,Balance Retraining,Post Op Education,Discharge Planning, Hot or Cold Pack,Neuromuscular Re-ed,Coordination Retraining ,Manual Therapy Precautions Other Precautions Fall risk, left prosthesis Weight Bearing Status Allowed Weight Bearing Amount (enter % NWB on RLE s/p BKA or #) (%) Recommendations To Nursing Amount of Assist Needed 1 Person Assist Discharge Recommendations PT Discharge Recommendations Home with 24/7 Assist Available,Home Health,Home vs SNF Transportation Needs at Discharge Private Vehicle - PT assist 1-2
--- NOTE | 2025-03-12 15:02 | CM.DPNOTE ---
DCP Note ENGINEERING MANAGER reviewed EMR Finally able to connect with Petrona from [facility] this morning, Petrona states she was not tracking on referral nor submitted for auth. per our previous CM note from 03/07, our CM team documents that Petrona accepted pt and planned to submit for auth. When this ENGINEERING MANAGER inquired about what happened since last , Petrona maintains she was not tracking on referral. would submit for auth today. Per Pam , contracted with pt's coordinated care ins just needs review from clinical team. Carin kindly agreed to fax over initial referral. Per Marianna from Pam , acceptance pending. f2f/orders needed if home with HH. ENGINEERING MANAGER updated team in morning rounds. provider reports pt medically cleared to dc once safe dc plan secured. ENGINEERING MANAGER met with pt in room. updated on SNF ins auth vs home with HH. at this point, pt wants to wait one more day for auth and if no auth by tomorrow, pt plans to refuse SNF placement and Dc home with roommate an HH. still working on HAO topher. roommate can come tomorrow to shrimp picker pt and maybe do some caregiver training. pt concerned about OP F/u appts, ENGINEERING MANAGER told pt that is arranged at dc. pt expressed understanding. P: SNF at [facility] pending ins auth vs home with Pam ( pending acceptance) and roommate support. will continue to follow closely for DCP coordination/HAO topher. POPEYE Sanchez
[2025-03-12 21:00] VITALS: BP 136/62; PULSE 66; RESP 16; TEMP 35.9; O2SAT 96
[2025-03-12] MEDS: cefTRIAXone 2,000 MG in SODIUM CHLORIDE 0.9% 100 ML 200 MG IV (21:34)
[2025-03-12] MEDS: INSULIN GLARGINE 100 UNIT/ML 3ML PEN 14 UNIT SUBCUT (21:36)
[2025-03-13] MEDS: SODIUM CHLORIDE 0.9% FLUSH 10 ML IV ×2 (01:03→08:06)
[2025-03-13] MEDS: ACETAMINOPHEN 325 MG TABLET 650 MG PO ×3 (03:41→14:36)
[2025-03-13] MEDS: BUPRENORPHINE/NALOXONE 8MG/2MG 1 TAB SL (03:41)
[2025-03-13] MEDS: HYDROMORPHONE 0.5 MG INJ 1 MG IV ×2 (06:14→09:29)
[2025-03-13] MEDS: methocarbamoL 500 MG TABLET PO ×2 (06:14→14:37)
--- NOTE | 2025-03-13 06:58 | PC.NURSE ---
Pt has been sleeping in his recliner all night, pt declining to turn in the recliner or sleep in the bed, pt does have a waffle cushion. pt also c/o pain 7 to right foot [place] pain, pt requesting IVP dilaudid, declining to take oxydone for pain.
[2025-03-13] MEDS: INSULIN LISPRO 100 UNIT/ML 3ML VIAL SUBCUT ×4 (07:59→12:04)
[2025-03-13 08:00] VITALS: BP 147/92; PULSE 60; RESP 16; TEMP 35.7; O2SAT 97
[2025-03-13] MEDS: INSULIN GLARGINE 100 UNIT/ML 3ML PEN 14 UNIT SUBCUT (08:00)
[2025-03-13 08:04] VITALS: BP 147/92; PULSE 60
[2025-03-13] MEDS: carvediloL 3.125 MG TABLET PO (08:04)
[2025-03-13] MEDS: GABAPENTIN 300 MG CAPSULE PO ×2 (08:04→14:37)
[2025-03-13] MEDS: ENOXAPARIN 40 MG/0.4 ML SYRINGE SUBCUT (08:05)
[2025-03-13] MEDS: HYDROMORPHONE 2 MG TABLET PO (14:37)
--- NOTE | 2025-03-13 14:38 | PT.IPTN ---
Current Diagnoses Sepsis, unspecified organism (02/26/25) Type 2 diabetes mellitus with foot ulcer (02/26/25) Type 2 diabetes mellitus without complications (02/26/25) Nicotine dependence, unspecified, uncomplicated (02/26/25) Peripheral vascular disease, unspecified (02/26/25) Cellulitis of unspecified part of limb (02/26/25) Non-pressure chronic ulcer of other part of unspecified foot with unspecified severity (02/26/25) Non-pressure chronic ulcer of other part of right foot with necrosis of bone (02/26/25) Non-pressure chronic ulcer of unspecified part of unspecified lower leg with unspecified severity (02/26/25) Chronic osteomyelitis with draining sinus, right ankle and foot (02/26/25) Osteomyelitis, unspecified (02/26/25) Surgery Performed Operation Date: 03/06/25 15:15 Actual Procedures p Below knee amputation(Right) - Joi Acevedo MD Physical Therapy Treatment Note M2 PT-IP Current Condition Start: 03/07/25 13:53 Freq: NEEDED Status: Active Protocol: Document 03/11/25 13:10 SP (Rec: 03/11/25 14:23 SP [id number]) Physical Therapy Current Condition Current Condition Evaluation Date 03/07/25 Treatment Diagnosis right BKA, impaired mobility/ gait Onset Date 03/06/25 M3 PT-IP Subjective Start: 03/07/25 13:53 Freq: NEEDED Status: Active Protocol: Document 03/13/25 14:38 DLM (Rec: 03/13/25 15:01 DLM Desktop) Subjective Physical Therapy Visit Type Type Treatment Note Visit Start Time 13:55 Visit Stop Time 14:38 Notes 42 min co-treat with OT for part of visit, will bill for 30 min Number of DRUM SAW OPERATOR Visits 0 Physical Therapy Visit Comments Patient Comments He feels safe going home with his roommate helping him Patient Goals He wants to discharge home Therapy Pain Assessment Pain When Pain Assessed After Treatment Pain Present Pain Present Pain Reported Location Right Leg Intensity 7 Scale Used Numeric (0 - 10) Description Aching,Tender,Throbbing Pain Management Techniques Elevation,Re-positioning M4 PT-IP Mobility and Gait Start: 03/07/25 13:53 Freq: NEEDED Status: Active Protocol: Document 03/13/25 14:38 DLM (Rec: 03/13/25 15:01 DLM Desktop) PT-Bed Mobility Assessment Scooting Scooting to Edge of Bed Independent PT-Transfer Assessment Transfers Transfer Destination Chair,Wheelchair Transfer Technique Lateral Scoot Transfer Ability Level of Assist Minimal Assistance,1 Person Assistance Comments Mobility Comments Pt has hospital sock on left LE prosthesis which slips on floor and needs caregiver to block his foot during transfer . Pt wearing left LE prosthesis for all transfers this visit. He was trained in lateral scooting to and from wheelchair/recliner (pillow used to cushion break and wheel of chair to protect buttock wounds), wheelchair armrest removed. Pt needed physical cues to keep his weight back towards buttocks and focus on lateral scoot to prevent sliding too far forward off of the chair. His caregiver was trained in lateral scoot transfer and demonstrated his ability to help him complete one transfer . Verbally educated pt and caregiver in backwards/forward scoot transfers that pt can do when he is not wearing his prosthesis. Gait Assessment Comments Gait Comments Pt used bilateral UE's to propel his wheelchair in the rust with left LE prosthesis on footrest x 300 feet. Pt is independent propelling wheelchair. He verbalizes good understanding of how to manage his home wheelchair. Stair Climbing Assessment Comments Stair Climbing Comments ramp to enter house PT-Balance Assessment Sitting Balance and Reactions Static Sitting Balance Ability Good Dynamic Sitting Balance Ability Good M5 PT-IP Objective Assessments Start: 03/07/25 13:53 Freq: NEEDED Status: Active Protocol: Document 03/07/25 12:27 DLM (Rec: 03/07/25 14:41 DLM Desktop) Orientation Orientation/Cognition Level of Alertness Alert Orientation Name,Age,Birthday,Month,Date, Year,Day of Week,Place, Situation Language Function Ability No Deficits Noted Safety Awareness Understands Safety Issues Memory Description No Deficits Noted Gross Range of Motion Upper Extremity ROM Assessment Within Functional Limits Lower Extremity ROM Assessment Within Functional Limits Impairments mild hamstring tightness left LE but can fully extend his knee in supine right knee in post-op splint so can not flex Strength Upper Extremity Strength Assessment Within Functional Limits Lower Extremity Strength Assessment Right Impaired Knee unable due to post-op splint Ankle NA bilaterally Comments Strength Comments pt moving right LE functionally Coordination Assessment Gross Coordination Gross Coordination WNL Sensation Assessment Comments Sensation Comments 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 with numbness, he denies numbness in hands Muscle Tone Muscle Tone WNL Yes M6 PT-IP Treatment Start: 03/07/25 13:53 Freq: NEEDED Status: Active Protocol: Document 03/13/25 14:38 DLM (Rec: 03/13/25 15:01 DLM Desktop) Physical Therapy Treatment Education Education Provided Safety Other Treatments Other Treatment Performed safety training with caregiver to decrease patient's fall risks M7 PT-IP Assessment and Plan Start: 03/07/25 13:53 Freq: NEEDED Status: Active Protocol: Document 03/13/25 14:38 DLM (Rec: 03/13/25 15:01 DLM Desktop) PT Summary Assessment and Plan Summary Impairments Pain,ROM,Strength,Balance, Coordination,Sensation,Bed Mobility,Transfers,Gait, Activity Tolerance Progress Towards Goals Progressing Toward Goals Assessment Summary Cy shows good progress in therapy. He wears left LE prosthesis for his mobility this visit. Caregiver training performed with his roommate in anticipation of discharging home. Cy shows improved ability to safely complete lateral scoot transfers with prosthesis on left. His roommate is able to assist him with these transfers. Pt shows good ability to propel his wheelchair with his UE's for mobility. Discharge plan changed go home with assist of roommate and home health services. Pt will need a drop arm bedside commode at home for toileting since his wheelchair does not fit into the bathroom. Goals Bed Mobility Goal Independent Transfer Goal Standby Assistance Other Goals SPT to the left Pt will transfer to and from bed, chair, w/c and w/c to toilet with no more than SBA. PT asks pt to have his roommate bring in his w/c from home. Pt will mobilize at least 50' with I in his w/c. Days to Meet Goals 5 Frequency of Treatment Frequency Of Treatment Once a Day Treatment Plan Physical Therapy Treatment Plan Bed Mobility Training,Transfer Training,Gait Training, Therapeutic Exercise,Balance Retraining,Post Op Education, Discharge Planning,Hot or Cold Pack,Neuromuscular Re-ed Other Recommendations and Next Treatment stopped stand-pivot transfers Focus since pt can not pivot safely on prosthesis at this time, prosthesis gets loose and he moves within it. Will focus on lateral scooting transfers Precautions Other Precautions pt is bilateral below knee amputation, fall risk left LE prosthesis Weight Bearing Status Weight Bearing Status Non-Weight Bearing Allowed Weight Bearing Amount (enter % right LE s/p below knee or #) (%) amputation Recommendations To Nursing Amount of Assist Needed 1 Person Assist Discharge Recommendations PT Discharge Recommendations Home with Assistance,Home Health Other Discharge Recommendations His Roommate plans to assist him Transportation Needs at Discharge Private Vehicle,Wheelchair/ Cabulance - PT assist 1
--- NOTE | 2025-03-13 14:38 | OT.IP.TRT ---
Current Diagnoses Sepsis, unspecified organism (02/26/25) Type 2 diabetes mellitus with foot ulcer (02/26/25) Type 2 diabetes mellitus without complications (02/26/25) Nicotine dependence, unspecified, uncomplicated (02/26/25) Peripheral vascular disease, unspecified (02/26/25) Cellulitis of unspecified part of limb (02/26/25) Non-pressure chronic ulcer of other part of unspecified foot with unspecified severity (02/26/25) Non-pressure chronic ulcer of other part of right foot with necrosis of bone (02/26/25) Non-pressure chronic ulcer of unspecified part of unspecified lower leg with unspecified severity (02/26/25) Chronic osteomyelitis with draining sinus, right ankle and foot (02/26/25) Osteomyelitis, unspecified (02/26/25) Surgery Performed Operation Date: 03/06/25 15:15 Actual Procedures p Below knee amputation(Right) - Joi Acevedo MD Occupational Therapy Treatment Note M2 OT-IP Current Condition Start: 03/07/25 14:34 Freq: Status: Active Protocol: Document 03/07/25 14:35 [facility] (Rec: 03/07/25 14:57 [facility] Desktop) Occupational Therapy Current Condition Current Condition Evaluation Date 03/07/25 Treatment Diagnosis S/P R BKA Weight Bearing Status Weight Bearing Status Non-Weight Bearing Allowed Weight Bearing Amount (enter % Nwb to RLE or #) (%) M3 OT- IP Subjective and Pain Start: 03/07/25 14:34 Freq: Status: Active Protocol: Document 03/13/25 14:43 [facility] (Rec: 03/13/25 14:53 [facility] Desktop) OT- Subjective Occupational Therapy Visit Type Type Treatment Note Visit Start Time 13:49 Visit Stop Time 14:44 Occupational Therapy Visit Comments Patient Comments Pt agreed to get dressed and his friend there for caregiver training for ADL and mobility needs. PT present for caregiver training as well. Patient/Caregiver Goals TO get better. OT Pain Assessment Pain When Pain Assessed During Mobility Pain Present Pain Present Pain Reported Location L leg Intensity 7 Scale Used Numeric (0 - 10) M4 OT- IP ADL's Start: 03/07/25 14:34 Freq: Status: Active Protocol: Document 03/13/25 14:43 [facility] (Rec: 03/13/25 14:53 [facility] Desktop) OT ADL-Dressing General Eval Lower Body Dressing Ability Moderate Assistance Comments OT Dressing Comments Pt able to leeann/doff the prosthesis on his own. Pt educated to lean side to side to leeann sweat pants over his hips. Pt however opting to stand and needing to block his left prosthesis from siding forwards and assist to get pants over his hips. OT ADL-Toileting Comments OT Toileting Comments Pt's friend still looking for a drop arm commode for pt to use. After much discussion, the door frame can be modified so able to get his wc into the bathroom. At this time a drop arm commode will be much safer to use. Pt's friend aware will have to assist pt at home . Suggested pt to take the urinal home. M5 OT- IP IADL's Start: 03/07/25 14:34 Freq: Status: Active Protocol: Document 03/07/25 14:35 [facility] (Rec: 03/07/25 14:57 [facility] Desktop) OT-Instrumental Activities of Daily Living Home Safety Awareness Awareness of Need for Assistance at Home Good Awareness Meal Preparation Meal Preparation Comments Pt will need assist. Peanut Vendor Peanut Vendor Comments Pt will benefit from asisst. M6 OT- IP Functional Cognition Start: 03/07/25 14:34 Freq: Status: Active Protocol: Document 03/13/25 14:43 [facility] (Rec: 03/13/25 14:53 [facility] Desktop) Cognitive Factors Limiting Selfcare Function Cognitive Comments Cognitive Assessment Comments Pt needing vc for safety of left prosthesis positioning during transfers. VC to do small scoots. M7 OT- IP Mobility and Balance Start: 03/07/25 14:34 Freq: Status: Active Protocol: Document 03/13/25 14:43 [facility] (Rec: 03/13/25 14:53 [facility] Desktop) OT-Transfer Assessment Transfers Transfer Ability Minimal Assistance Technique Transfer Destination Chair,Wheelchair Transfer Technique Squat Pivot Comments Mobility Comments Pt able to scoot to the WC with MARIZA. Mainly assist to help block his left prosthesis and for guidance of his hips as pt tends to lean forwards too much. Pt's friend able to safely assist pt to recliner. Pt's friend has a truck and states will be able to just lift into and out of the truck . OT- Balance Assessment Sitting Balance and Reactions Static Sitting Balance Ability Normal Dynamic Sitting Balance Ability Good M8 OT- IP Objective Assessments Start: 03/07/25 14:34 Freq: Status: Active Protocol: Document 03/07/25 14:35 [facility] (Rec: 03/07/25 14:57 [facility] Desktop) OT Gross Range of Motion Upper Extremity Range of Motion Assessment Within Functional Limits OT Strength Upper Extremity Strength Assessment Within Functional Limits M9 OT- IP Assessment and Plan Start: 03/07/25 14:34 Freq: Status: Active Protocol: Document 03/13/25 14:43 [facility] (Rec: 03/13/25 14:53 [facility] Desktop) OT Summary Assessment and Plan Potential Rehabilitation Potential Good Analytic Complexity at Evaluation Moderate Summary Progress Towards Goals Progressing Toward Goals Assessment Summary Pt's friend able to participate in caregiver training for ADL and mobility needs with good safety and understanding. Pt feeling good to go home with 24/7 available assist and home health. Goals Dressing Goal Independent Toileting Goal Independent Bathing Goal Standby Assistance Toilet Transfer Goal Independent Shower Transfer Goal Independent Days to Meet Goals 10 Frequency of Treatment Other frequency 5x/week Treatment Plan OT Treatment Plan ADL Training,Functional Mobility,Patient/Family Education,Discharge Planning Other Treatment Recommendations and Next Transfer to [facility] indepently. Treatment Focus Discharge Recommendations OT Discharge Recommendations Home with 24/7 Assist Available,Home Health,Home vs SNF Transportation Needs at Discharge Private Vehicle
--- NOTE | 2025-03-13 15:52 | PM.DS.1 ---
History of Present Illness History of Present Illness Chief complaint: R leg infection Narrative: From H&P: Chief complaint: Right lower leg gangrene osteomyelitis with pain History of present illness: 59 M with PMH of DM2, HTN, CHFpEF (EF 42% 09/2023), PAD, prior L BKA (09/2023), opiate use disorder on suboxone who presents for worsening ulceration of his R lower leg for the last severeal months. Orthopedic provider currently plan for BKA next week on 03/06. Discharge Providers Provider Date of admission: 02/26/25 23:57 Discharge Date: 03/13/25 Primary care physician: Agnieszka Billy MD Consults: 02/27/25 02:06 Consult to Dietitian, Adult Routine Comment: Reason For Exam: non compliant DM2 w/ multiple wounds Consult to Wound Care Routine Comment: Consulting Provider: [facility] 02/27/25 03:10 Consult to Dietitian, Adult Routine Comment: Reason For Exam: diabetic Consult to Occupational Therapy Evaluate & Treat Comment: Physician Instructions: Evaluate and treat Consult to Physical Therapy Evaluate & Treat Comment: Physician Instructions: Evaluate and Treat 03/06/25 20:51 Consult to Discharge Planning Routine Comment: Consult to Occupational Therapy Evaluate & Treat Comment: Physician Instructions: Evaluate and treat Consult to Physical Therapy Evaluate & Treat Comment: esperanza oconnell Physician Instructions: Evaluate and Treat Discharge provider: Royce Carbajal MD Summary Hospital Course Discharge Diagnosis: 1. Infected Right 1st metatarsal diabetic ulcer with osteomyelitis, present on admission and active status post BKA 03/07 - Culturing Klebsiella oxytoca and Group g streptococcus 2. Severe PAD/chronic tobacco use/diabetic microvascular disease, present on admission and stable. - Not a candidate for vascular intervention per vascular surgery consultation x 2 -status post right BKA 3. Diabetes mellitus, type 2 / non-compliance with metformin, present on admission and stable. - increased to 26 U lantus daily on 03/01 and continue 5 U TID AC, will hold home oral agents at this time. - poor long-term control A1C 10.7 %, currently well-controlled in hospital with 4. Tobacco use disorder, present on admission and stable. - nicotine replacement. 5. Continuous opiate dependence, present on admission and stable. - continue Suboxone home regimen. 6. Chronic systolic heart failure with repeat echo revealed an EF of 35% and no wall motion abnormalities. -This is chronic and stable. Hospital Course: Hospital course: 03/01: The patient has no new complaints. Blood sugars are in the 200-300 range. 03/02: No new issues. He has no complaints. Blood sugars in the 170s to 200 range. 03/03: No new complaints. Right leg wound cleaned by Orthopedics yesterday. Blood sugars in the 140s to 150s range. 03/04-: Stable, on IV antibiotics, awaiting BKA. 03/06: Underwent right BKA without any postoperative complications 03/07: No fevers or chills pain medicines being adjusted for adequate analgesia 03/08: Patient responding better to oxycodone orally then Dilaudid orally for pain no fevers or chills 03/09: Pain is significantly better patient requires 2 person assist per physical therapy yesterday had discussion patient is reluctantly agreeing that rehab is necessary preparations made for discharge and planning for 10 days of oral cefdinir after discharge 03/10: Pain control is better patient is working with PT awaiting insurance authorization to discharge to rehab 03/11: Pain control is better patient is working with PT awaiting insurance authorization to discharge to rehab 03/12: Pain control is better patient is working with PT awaiting insurance authorization to discharge to rehab 03/13: Stable for discharge home. The patient will be on oral antibiotics for an additional 7 days. He will see Dr. Julian of Orthopedics in about 3 weeks in his advised not to remove any of his BKA site dressings until that time. Home health has also been an active. He will continue to get his Suboxone from the Suboxone clinic in [place]. [N], the patient has documentation of a left ventricle ejection fracture less than or equal to 40%, or moderately or severely reduced left ventricle systolic function. [N], the patient has a history of heart transplant or left ventricular assist device (LVAD). [N], the patient was prescribed an CATARINA inhibitor at discharge or is already being taken. [N], the patient was prescribed a beta elena at discharge. Status at Discharge Functional status at discharge: wheelchair bound Overall status at discharge: patient is progressing back to baseline Time Spent with Patient Time spent: Greater than 30 minutes Exam Vital Signs (past 8 hours): - 03/13/25 08:00 03/13/25 08:04 Temperature 96.3 F L Pulse Rate 60 60 Respiratory Rate 16 Blood Pressure 147/92 H 147/92 H Pulse Oximetry 97 Oxygen Flow Rate 0 Oxygen Delivery Method Room Air Oxygen Flow Rate 0 Narrative Exam Narrative: NAD, alert and oriented. Fluent speech. Lungs are clear, normal rate and effort. Heart is regular, no murmur gallop or rub. Abdomen is soft, non distended. Extremities: left BKA, right BKA with dressing on. Objective Imaging Multiple studies:: Radiologist's impression: 1. Chest xray 02/26/2025: No acute cardiopulmonary abnormality is seen. 2. Right foot xray 02/26/2025: Osteomyelitis of the 1st metatarsal head/neck with intra-articular extension at the MTP joint. 3. Arterial doppler US 02/26/2025: Multifocal areas of high-grade 50-99% stenosis throughout the right lower extremity arterial vasculature. 4. Foot MRI 02/27/2025: 1. Full-thickness ulceration involving plantar aspect of 1st MTP joint with extensive midfoot and forefoot soft tissue cellulitis. No discrete drainable abscess collection. 2. Finding is consistent with osteomyelitis involving 1st metatarsal bone and 1st proximal phalanx as well as medial and lateral sesamoids of 1st metatarsal head with extensive marrow edema and bony erosive changes. Heterogeneous contrast enhancement in the area of edema is seen. 3. No other area of abnormal marrow signal. Susceptibility artifacts are noted in plantar aspect of 3rd toe. No other area of abnormal intraosseous enhancement. 4. No gross full-thickness extensor or flexor tendon rupture. No gross plantar foot muscle signal abnormalities. No enhancing soft tissue mass. 5. Lower extremity CTA 02/27/2025: 1. Severe high-grade stenosis of the bilateral superficial femoral and profunda femoris arteries, with patent but poor opacification of the right lower extremity triple-vessel runoff. The CTA is concordant with the right lower extremity arterial Doppler ultrasound findings. 2. 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 3. Right foot 1st ray osteomyelitis with likely superimposed cellulitis. Labs 03/08/25 04:37 03/08/25 04:37 [facility] Medical History Smoking addiction Diabetes CHF (congestive heart failure) Social History details: Ambulates with a prosthetic for a below-knee amputation on the left household members: none Smoking Status: Current every day smoker alcohol intake: never Discharge Assessment & Plan Assessment and Plan Assessment: 1. Infected Right 1st metatarsal diabetic ulcer with osteomyelitis, present on admission and active status post BKA 03/07 - Culturing Klebsiella oxytoca and Group g streptococcus 2. Severe PAD/chronic tobacco use/diabetic microvascular disease, present on admission and stable. - Not a candidate for vascular intervention per vascular surgery consultation x 2 -status post right BKA Discharge Plan Discharge Plan Patient Disposition: Home Health Service Transfer to: [facility] Provider Discharge Comment: Follow up at [facility] orthopedics in 3 weeks. Continue gabapentin 300 mg t.i.d. for 1 month. Use Dilaudid for breakthrough pain Discharge orders & Medications Prescriptions: New cefdinir 300 mg capsule 300 mg PO BID Qty: 14 0RF carvedilol 3.125 mg tablet 3.125 mg PO BID Qty: 60 0RF Rx Instructions: must administer with a meal/food gabapentin 300 mg capsule 300 mg PO TID Qty: 90 1RF insulin glargine-yfgn 100 unit/mL (3 mL) insulin pen 26 unit SUBCUT DAILY Qty: 15 5RF insulin lispro 100 unit/mL insulin pen 5 unit SUBCUT QAC Qty: 15 5RF oxycodone 5 mg capsule 5 mg PO Q6H PRN (Reason: pain) Qty: 20 0RF nicotine [Nicoderm CQ] 14 mg/24 hr patch 24 hour 1 patch transdermal DAILY Qty: 14 0RF (DME) CareTouch Test Strip Strip See Rx Instructions .Route Qty: 100 5RF Rx Instructions: As directed buprenorphine-naloxone [Suboxone] 8-2 mg film 1 film buccal BID Qty: 1 0RF Discontinued buprenorphine-naloxone [Suboxone] 8-2 mg film 8 mg sublingual BID Follow up/Referrals: Joi Acevedo MD [Physician] - 03/27/25 2:40 pm (appt:03/27 @ 2:40 with Jeanine Harris PA-C @ [facility] – [place], [place] [address] [facility] check in @ 2:30 if you have completed paper work sent to your cell phone otherwise if paperwork still needs to be done check in at 2:10) Agnieszka Billy MD [Primary Care Provider] - Diet/Activity/Treatments Diet: Carb-consistent/Diabetic Activity: Out of bed to chair, okay to ambulate with walker and left lower extremity prosthesis Skin/Wound/Dressing Care Report to your healthcare provider any signs of infection, such as:: increased pain Dressing: Okay to leave dressing on. Visit Report/Discharge Packet Instructions: DI for Sjuyb-hwe-Ykht Amputation, DI for Prescription Opioid Use Stand Alone Forms: Patient Portal/API Discharge Data Primary Care Provider: Agnieszka Blily Quality VTE Deep Vein Thrombosis/Pulmonary Embolism Present on Admission: No
--- NOTE | 2025-03-13 16:12 | CM.DPNOTE ---
DCP Note MATERIALS HANDLER reviewed EMR per chart/provider medically cleared to dc. per Dirk at [facility], able to accept referral. MATERIALS HANDLER completed f2f and HH order. emailed HH order/f2f/dc sum draft to [facility]. MATERIALS HANDLER met with pt/roommate multiple times throughout day. after working with OT, feel safe to dc home with HH. refusing SNF placement. preference [facility]. MATERIALS HANDLER assisted pt in completing [facility] Medicaid topher, faxed to number on topher ([phone]) and fax on website ([phone]). completed intake and referral form, faxed to [phone]. MATERIALS HANDLER called [facility] x3, no response, no answer, vm box full. emailed [facility] x2, no response. emailed to cancel referral. Per desiree, wound care plan to follow pending pt's post op appt with ortho in 3 weeks. air traffic coordinator Nila velasquez assisted this MATERIALS HANDLER, faxed referral to [facility] wound care. per intake at [facility] wound care will hold on to pt's information and will wait pt's post op referral from ortho team after his post op appt. reviewed above plan with pt and roommate/caregiver. reports understanding. denies other DCP/CM needs or questions at this time. MATERIALS HANDLER gave orginal topher for [facility] back to pt, intake and referral form in scanning folder. P: Dc home today with roommates support. and [facility] to follow for RN/PT/OT. f/u with ortho in 3 weeks. CM team will continue to follow as needed POPEYE Sanchez
--- NOTE | 2025-03-14 11:36 | CM.DPNOTE ---
Post Discharge Note Received VM from Saadia [facility] wound care P [phone] ext [phone]; Saadia asks for a CB to discuss patient and would like to fax their intake referral form to this CM team to get completed. Reviewed chart. Saw that there was no wound care consult done AFTER patient's BKA. Dr Carbajal reported on his DC Summary that patient was to keep his dressings on until he followed up with the Orthopedic team in 3 weeks. Placed call to Adelfo Galaviz. Emailed signed DC Summary to [email or web address]. Adelfo reports patient will not be seen until Monday 03/19. Placed call to patient; had to LM. In message; updated that patient would not be seen by DIXIE RN until, at the earliest, Monday 03/19. In addition, strongly encouraged patient to make it to his outpatient Ortho appt and encouraged patient to go see his PCP. This DENTAL SECRETARY's contact information was left on VM in case patient had any confusion about his discharge plan and discharge from on 03/13/25. Placed call to [facility] wound care, Saadia, had to LM with a summary of above. ELIZABETH
== END 2025-03-13 16:36 | disposition home health service (06) | DRG 617 ==
LOC: ED 22:27 → AC 02-27
PROVIDERS: Hospitalist; Orthopaedic Surgery Foot and Ankle Surgery; Admitting Provider Internal Medicine; Emergency Provider Student in an Organized Health Care Education/Training Program; Family Provider Family Medicine; PCP Family Medicine; Referring Provider Student in an Organized Health Care Education/Training Program; Visit Provider Internal Medicine
PROC: 0Y6H0Z1 Detachment at Right Lower Leg, High, Open Approach (ICD-10-PCS; principal; 2025-03-06 15:15)
DX: E11.621 Type 2 diabetes mellitus with foot ulcer (principal); E11.52 Type 2 diabetes mellitus with diabetic peripheral angiopathy with gangrene; L03.115 Cellulitis of right lower limb; I96 Gangrene, not elsewhere classified; M86.471 Chronic osteomyelitis with draining sinus, right ankle and foot; M86.8X7 Other osteomyelitis, ankle and foot; L97.414 Non-pressure chronic ulcer of right heel and midfoot with necrosis of bone; F11.20 Opioid dependence, uncomplicated; I50.22 Chronic systolic (congestive) heart failure; T38.3X6A Underdosing of insulin and oral hypoglycemic [antidiabetic] drugs, initial encounter; L97.514 Non-pressure chronic ulcer of other part of right foot with necrosis of bone; E11.69 Type 2 diabetes mellitus with other specified complication; B95.4 Other streptococcus as the cause of diseases classified elsewhere; B96.89 Other specified bacterial agents as the cause of diseases classified elsewhere; I11.0 Hypertensive heart disease with heart failure; Z72.0 Tobacco use; Z91.148 Patient's other noncompliance with medication regimen for other reason; Z89.512 Acquired absence of left leg below knee
CPT/HCPCS: 36415; 71045; 73630; 73706; 73720; 80048; 80053; 80202; 82962; 83036; 83605; 83690; 84145; 85025; 85027; 85610; 85651; 85730; 86140; 87040; 87070; 87077; 87147; 87186; 87205; 93005; 93010; 93306; 93926; 96361; 96365; 96366; 96367; 97110; 97162; 97166; 97530; 97535; 99233; 99284; 99406; A9270; J0131; J0692; J0696; J1171; J1650; J1815; J2250; J2274; J2405; J2704; J3010; Q9957; Q9967